=== PATIENT | male | born 1960 | race Caucasian/White ===

== ENCOUNTER 2021-09-09 08:54 | Inpatient (IN) | payer BC ==
[~2021-09-09] VITALS: Ht 180.3 cm; Wt 128.6 kg
[2021-09-09] MEDS ORDERED: POLY17PO6 PO (11:35)
[2021-09-09] MEDS ORDERED: ATOR10TA66 PO (11:35)
[2021-09-09] MEDS ORDERED: LIRA0.6P3 SQ (11:35)
[2021-09-09] MEDS ORDERED: AMLO-251 PO (11:35)
[2021-09-09] MEDS ORDERED: NF-SODBICA PO (11:35)
[2021-09-09] MEDS ORDERED: FERR325T18 PO (11:35)
[2021-09-09] MEDS ORDERED: CLOP75TA28 PO (11:35)
[2021-09-09] MEDS ORDERED: ASPI-1238 PO (11:35)
[2021-09-09] MEDS ORDERED: SENN-109 PO (11:35)
[2021-09-09] MEDS ORDERED: FURO40TA4 PO (11:35)
[2021-09-09] MEDS ORDERED: OLAN10TA71 PO (11:35)
[2021-09-09] MEDS ORDERED: HYDR-3817 PO (11:35)
[2021-09-09] MEDS ORDERED: LOPERAMIDE 2 MG (IMODIUM) TABLET PO PRN (12:15)
[2021-09-09] MEDS ORDERED: FUROSEMIDE 40 MG (LASIX) TAB PO PRN (12:15)
[2021-09-09] MEDS ORDERED: polyethylene glycoL POWDER 17 GM (MIRALAX) PACK PO PRN (12:15)
[2021-09-09] MEDS ORDERED: LACTULOSE SYRUP 10GM/15ML (ENULOSE) 30ML UDC PO PRN (12:15)
[2021-09-09] MEDS ORDERED: NON-FORMULARY MEDICATION 1 EA EA (Olanzapine 10 MG) PO PRN (12:15)
[2021-09-09] MEDS ORDERED: ACETAMINOPHEN 500 MG TAB (TYLENOL) PO PRN (12:15)
[2021-09-09] MEDS ORDERED: guaiFENesin/CODEINE (ROBITUSSIN AC) 10ML UDC PO PRN (12:15)
[2021-09-09] MEDS ORDERED: FLEET ENEMA ADULT 1 EA BTL PR PRN (12:15)
[2021-09-09] MEDS ORDERED: CALCIUM CARBONATE 500 MG (TUMS) TAB.CHEW PO PRN (12:15)
[2021-09-09] MEDS ORDERED: DOCUSATE SODIUM 100 MG (COLACE) CAP PO PRN (12:15)
[2021-09-09] MEDS ORDERED: diphenhydrAMINE 25 MG TAB (BENADRYL) PO PRN (12:15)
[2021-09-09] MEDS ORDERED: ONDANSETRON 4 MG (ZOFRAN) ORAL DISSOLVE TAB PO PRN (12:15)
[2021-09-09] MEDS ORDERED: BISACODYL 10 MG SUPP (DULCOLAX) PR PRN (12:15)
[2021-09-09 13:30] VITALS: BP 182/82
--- NOTE | 2021-09-09 14:22 | Physical Therapy Evaluation ---
PT Evaluation-General Medical Diagnosis Admission Date Sep 09, 2021 at 13:30 Medical Diagnosis: right AKA Onset Date: Aug 27, 2021 Therapy Diagnosis Therapy Diagnosis: impaired mobility, strength, endurance Precautions Precautions/Isolations: Fall Prevention, Standard Precautions, Contact/Enteric Isolation, Pressure Ulcer Referral Physician: Amarilys Carlson DO Reason for Referral: Evaluation/Treatment Social History Current Living Status: Spouse Entry Into Home: Ramp Prior Prior Level of Function SCALE: Activities may be completed with or without assistive devices. 8-Mtcvsqoonm-owarpbw completes the activity by him/herself with no assistance from a helper. 5-Set-up or Clean-up Assistance-helper sets up or cleans up; patient completes activity. [place] assists only prior to or following the activity. 4-Supervision or Touching Assistance-helper provides verbal cues and/or touching/steadying and/or contact guard assistance as patient completes activity . Assistance may be provided throughout the activity or intermittently. 3-Partial/Moderate Assistance-helper does LESS THAN HALF the effort. [place] lifts, holds or supports trunk or limbs, but provides less than half the effort. 2-Substantial/Maximal Assistance-helper does MORE THAN HALF the effort. [place] lifts or holds trunk or limbs and provides more than half the effort. 0-Yzzgznlrw-ribqpr does ALL the effort. Patient does none of the effort to complete the activity. Or, the assistance of 2 or more helpers is required for the patient to complete the activity. If activity was not attempted, code reason: 7-Patient Refused. 9-Not Applicable-not attempted and the patient did not perform the activity before the current illness, exacerbation or injury. 10-Not Attempted due to Environmental Limitations-(lack of equipment, weather restraints, etc.). 88-Not Attempted due to Medical Conditions or Safety Concerns. Bed Mobility: 6 Transfers (B,C,W/C): 3 Gait: 3 Indoor Mobility (Ambulation): Needed Some Help Prior Devices Use: Walker PT Evaluation-Current Subjective Patient in bed pre tx, agrees to PT, has no pain at rest but does have some pain in his right residual limb with movement. Will be co-treating with OT due to poor patient mobility, strength, endurance, coordinate UE and LE with activity, safety and reduce risk of falls. Pt/Family Goals to be independent at home Objective Patient Orientation: Person, Place, Situation Sensory Vision: Functional Hearing: Functional Transfers Roll Left & Right (QC): 6 Sit to Lying (QC): 3 Lying to Sitting/Side of Bed(Q: 3 Sit to Stand (QC): 88 Chair/Ywz-ha-Lqlvv Xfer(QC): 3 Toilet Transfer (QC): 3 Car Transfer (QC): 88 Patient performs rolling with independence, supine <-> sit min assist, transfers with mod assist using a sliding board. Not safe to perform a car transfer at this time. Gait Walk 10 feet (QC): 88 Walk 50 ft with 2 Turns(QC): 88 Walk 150 ft (QC): 88 Walking 10ft/uneven surface-QC: 88 Wheelchair Training Wheel 50 ft with 2 turns (QC): 4 Wheel 150 ft (QC): 4 Type of Wheelchair: Manual SBA Stairs 1 Step (curb) (QC): 88 4 Steps (QC): 88 12 Steps (QC): 88 Balance Sitting Static: Fair Sitting Dynamic: Fair Standing Static: Fair Standing Dynamic: Fair Picking up an Object (QC): 6 (using belt worker) Special Test Comments Patient has impaired sitting balance and he did lose his balance backward while sitting on the side of the bed, he was able to catch himself using the bedrail. Treatment PT performed bed mobility and transfers, WC mobility, OT performed UE positioning and safety during activity Assessment/Needs Patient has impaired mobility, strength, endurance. Needs assist for supine <-> sit and with sliding board transfers. He does have a prosthetic leg for the left side but his says it is porcelain or something and is only supposed to be used for transfers. Rehab Potential: Fair PT Short Term Goals Short Term Goals Time Frame: Sep 16, 2021 Roll Left & Right: 6 Sit to lyin Lying to sitting on side of be: 4 Sit to stand: 3 Chair/kft-zn-yqduj transfer: 4 PT Evs Attendant Goals Usp Goals PT Evs Attendant Goals Time Frame: Sep 30, 2021 Roll Left & Right (QC): 6 Sit to Lying (QC): 6 Lying-Sitting on Side/Bed(QC): 6 Sit to Stand (QC): 4 (SBA) Chair/Uqt-cb-Aamxb Xfer(QC): 4 (SBA) Toilet Transfer (QC): 4 (SBA) Car Transfer (QC): 3 (Jennifer) Does the Patient Walk: No and Walking Goal NOT indicated Walk 10 feet (QC): 88 Walk 50ft with 2 Turns (QC): 88 Walk 150 ft (QC): 88 Walking 10ft on Uneven Surface: 88 1 Step (curb) (QC): 88 4 Steps (QC): 88 12 Steps (QC): 88 Picking up an Object (QC): 6 Wheel 50 feet with 2 turns (QC: 6 Wheel 150 feet: 6 PT Plan Problem List Problem List: Activity Tolerance, Functional Strength, Safety, Balance, Gait, Transfer, Bed Mobility, ROM Treatment/Plan Treatment Plan: Continue Plan of Care Treatment Plan: Bed Mobility, Education, Functional Activity Julisa, Functional Strength, Group Therapy, Gait, Safety, Therapeutic Exercise, Transfers Treatment Duration: Sep 30, 2021 Frequency: At least 5 of 7 days/Wk (IRF) Estimated Hrs Per Day: 1.5 hours per day Patient and/or Family Agrees t: Yes Safety Risks/Education Patient Education: Transfer Techniques, Correct Positioning, W/C Management, Safety Issues Teaching Recipient: Patient Teaching Methods: Demonstration, Discussion Response to Teaching: Reinforcement Needed Discharge Recommendations Plan Patient will perform bed mobility and transfer training, balance and endurance training, functional strengthening, and education, to improve functional mobility and independence at home. Therapy Discharge Recommendati: Scheduled Assistance, Home & Family, Post Acute PT Time/GCodes Time In: 1330 Time Out: 1400 Total Billed Treatment Time: 20 Total Billed Treatment 1 visit EVM 10' PT eval from [id number], OT eval from 7726-6286, co-treat from [id number] NEFTALY MITCHELL PT Sep 09, 2021 14:22
[2021-09-09] MEDS ORDERED: ACETAMINOPHEN 325 MG TABLET PO PRN (15:15)
[2021-09-09] MEDS ORDERED: OLANZapine 5 MG (ZyPREXA) TAB PO PRN (15:15)
[2021-09-09] MEDS: SODIUM BICARBONATE 650 MG TABLET (NON-FORMULARY) PO SCH ×2 (15:16→21:06)
--- NOTE | 2021-09-09 15:17 | Occupational Therapy Eval ---
OT Evaluation-General/PLF Medical Diagnosis Admission Date Sep 09, 2021 at 13:30 Medical Diagnosis: s/p R AKA Onset Date: Aug 27, 2021 Therapy Diagnosis Therapy Diagnosis: decreased ADL status, weakness Precautions Precautions/Isolations: Fall Prevention, Standard Precautions, Contact/Enteric Isolation, Pressure Ulcer Weight Bear Status Weight Bearing Restriction: Weight Bearing/Tolerated (LLE with prosthesis), Non Weight Bearing (RLE) Referral Physician: Amarilys Carlson DO Referral Reason: Evaluation/Treatment Medical History Pertinent Medical History: DM, HTN, Renal Insufficiency (CKD4) Additional Medical History obesity, anemia, HLD, s/p BKA LLE, back surgery Current History s/p R AKA 08/27/21 due to osteomyelitis. Social History Home: Single Level Current Living Status: Spouse Entry Into Home: Ramp ADL-Prior Level of Function SCALE: Activities may be completed with or without assistive devices. 5-Shfxpdousq-wvkihzu completes the activity by him/herself with no assistance from a helper. 5-Set-up or Clean-up Assistance-helper sets up or cleans up; patient completes activity. [place] assists only prior to or following the activity. 4-Supervision or Touching Assistance-helper provides verbal cues and/or touc jennifer/steadying and/or contact guard assistance as patient completes activity. Assistance may be provided throughout the activity or intermittently. 3-Partial/Moderate Assistance-helper does LESS THAN HALF the effort. [place] lifts, holds or supports trunk or limbs, but provides less than half the effort. 2-Substantial/Maximal Assistance-helper does MORE THAN HALF the effort. [place] lifts or holds trunk or limbs and provides more than half the effort. 9-Yetklqpxy-xqnxkn does ALL the effort. Patient does none of the effort to complete the activity. Or, the assistance of 2 or more helpers is required for the patient to complete the activity. If activity was not attempted, code reason: 7-Patient Refused. 9-Not Applicable-not attempted and the patient did not perform the activity before the current illness, exacerbation or injury. 10-Not Attempted due to Environmental Limitations-(lack of equipment, weather restraints, etc.). 88-Not Attempted due to Medical Conditions or Safety Concerns. ADL PLOF Comments Pt reports IND with ADLs and functional transfers at PLOF. He states he is able to bathe/dress/toilet independently. He is able to use LLE prosthesis to assist in transfers. Pt's states his current prosthesis is ceramic, so he isn't supposed to take steps with it, but he can use for transfers. Pt uses electric w/c at home, able to transfer in/out independently. He also has a manual w/c. Pt limited to certain rooms in his home, as his w/c will not fit into bedroom/bathroom. He typically sleeps in recliner. He has a tub/shower, owns bath bench. In order to get into the shower, he has to transfer from w/c to bench, scoot across, transfer to a toilet or SC (pt unclear), then move the bench from one side to the other in order to transfer to bench again, scoot across, then transfer to SC within tub? (again pt unclear on exact layout of this transfer). He owns a BSC. Self Care: Independent Functional Cognition: Independent DME/Equipment: Bath Bench, Bedside Commode, Tub/Shower OT Current Status Subjective Pt agreeable to OT evaluation then OT/PT cotreat. Pt reports no pain throughout session Mental Status/Objective Patient Orientation: Person, Place, Time, Situation Current Glasses/Contacts: Yes (reading) Hearing Aids: No Dentures/Partials: No Hand Dominance: Right Upper Extremity ROM BUE shoulder flexion to approx 100 degrees, WFL at elbow/wrist/hand. Upper Extremity Coordination WFL Upper Extremity Sensation WFL Upper Extremity Strength grossly 4/5 ADL-Treatment Eating (QC): 6 (Pt independent with meal) Oral Hygiene (QC): 7 Shower/Bathe Self (QC): 7 Upper Body Dressing (QC): 7 Lower Body Dressing (QC): 7 On/Off Footwear (QC): 88 Toileting Hygiene (QC): 7 Other Treatments OT evaluation complete. OT/PT cotreat due to skill of 2 clincians required which a director of rehabilitation could not perform in order to coordinate UE/LEs, decrease fall risk, and due to pt's limitations in strength, activity tolerance, mobility, transfers, and balance. OT focused on UE placement, cues for sequencing and safety, and ADLs, PT focused on LE placement, gross overall movements, transfers/mobility. Pt transferred supine to sit EOB (Min A), then SB transfer to w/c (Mod A). Pt had LOB, falling backwards into the bed as SB was placed. Pt performed w/c mobility around TXU common area/2nd floor, then into therapy gym. Pt performed SB transfer from w/c to therapy mat (CGA). Tx focused on dynamic sitting balance, UE reaching, and crossing midline. Pt able to reach for rings in various planes, on same side and crossing midline for each UE. Pt then completed balloon batting activity, reaching in various planes with UEs. SBA for balance at EOM. Pt performed SB transfer from mat to w/c (CGA), then propelled w/c to his room. Pt requests to stay up in chair. Pt's meal arrived, he was able to eat independently. Post tx, pt up in w/c, call light in reach and all needs met. Education OT Patient Education: Correct positioning, Energy conservation, Modified ADL techniques, Progress toward Goal/Update tx plan, Purpose of tx/functional activities, Reviewed precautions, Rehab process, Safety issues, Transfer techniques Teaching Recipient: Patient Teaching Methods: Discussion Response to Teaching: Verbalize Understanding OT Short Term Goals Short Term Goals Time Frame: Sep 23, 2021 Toileting hygiene: 3 Shower/bathe self: 3 Lower body dressin Putting on/taking off footwear: 3 OT Fpc Goals Fpc Goals Time Frame: Oct 09, 2021 Eating (QC): 6 Oral Hygiene (QC): 6 Toileting Hygiene (QC): 4 Shower/Bathe Self (QC): 4 Upper Body Dressing (QC): 6 Lower Body Dressing (QC): 4 On/Off Footwear (QC): 5 (LLE prosthesis only) Additional Goals: 1-Demonstrate ADL Tasks, 2-Verbalize Understanding, 3- ImproveStrength/Julisa 1=Demonstrate adherence to instructed precautions during ADL tasks. 2=Patient will verbalize/demonstrate understanding of assistive devices/modifica tions for ADL. 3=Patient will improve strength/tolerance for activity to enable patient to perform ADL's. OT Education/Plan Problem List/Assessment Assessment: Decreased Activ Tolerance, Decreased UE Strength, Impaired Bed Mobility, Impaired Funct Balance, Impaired I ADL's, Impaired Self-Care Skills Discharge Recommendations Plan/Recommendations: Continue POC Treatment Plan/Plan of Care Patient would benefit from OT for education, treatment and training to promote independence in ADL's, mobility, safety and/or upper extremity function for ADL's. Plan of Care: ADL Retraining, Functional Mobility, Group Exercise/Act as Ind, UE Funct Exercise/Act Treatment Duration: Oct 09, 2021 Frequency: At least 5 of 7 days/Wk (IRF) Estimated Hrs Per Day: 1.5 hours per day Rehab Potential: Fair Time/GCodes Start Time: 13:40 Stop Time: 15:10 Total Time Billed (hr/min): 90 Billed Treatment Time 8530-0727 OT eval (10'), 3465-1266 OT/PT cotreat (80') 1, EVM (10'), FA 5 (80') LETICIA HENDRIX OT Sep 09, 2021 15:17
--- NOTE | 2021-09-09 15:26 | Physical Therapy Daily Note ---
PT Daily Note-Current Subjective Pt sitting in [facility] working w/Ot upon arrival. Pt agrees to PT/OT co-treat. Pain Numeric Pain Scale: 0-No Pain Mental Status Patient Orientation: Person, Place, Time, Situation Attachments: Other-See Comments (Slide Board) Transfers SCALE: Activities may be completed with or without assistive devices. 4-Bvvaxpepcp-pwnprjd completes the activity by him/herself with no assistance from a helper. 5-Set-up or Clean-up Assistance-helper sets up or cleans up; patient completes activity. [place] assists only prior to or following the activity. 4-Supervision or Touching Assistance-helper provides verbal cues and/or touching/steadying and/or contact guard assistance as patient completes ac tivity. Assistance may be provided throughout the activity or intermittently. 3-Partial/Moderate Assistance-helper does LESS THAN HALF the effort. [place] lifts, holds or supports trunk or limbs, but provides less than half the effort. 2-Substantial/Maximal Assistance-helper does MORE THAN HALF the effort. [place] lifts or holds trunk or limbs and provides more than half the effort. 7-Isufgeuyk-qcuzku does ALL the effort. Patient does none of the effort to complete the activity. Or, the assistance of 2 or more helpers is required for the patient to complete the activity. If activity was not attempted, code reason: 7-Patient Refused. 9-Not Applicable-not attempted and the patient did not perform the activity before the current illness, exacerbation or injury. 10-Not Attempted due to Environmental Limitations-(lack of equipment, weather restraints, etc.). 88-Not Attempted due to Medical Conditions or Safety Concerns. Chair/Tdi-zh-Ydoax Xfer(QC): 4 Wheelchair Training Does the Pt Use a Wheelchair?: Yes Wheel 50 ft with 2 turns (QC): 4 Wheel 150 ft (QC): 4 Type of Wheelchair: Manual Treatments OT/PT cotreat due to skill of 2 clincians required which a pc technician could not perform in order to coordinate UE/LEs, decrease fall risk, and due to pt's limitations in strength, activity tolerance, mobility, transfers, and balance. OT focused on UE placement, cues for sequencing and safety, and ADLs, PT focused on LE placement, gross overall movements, transfers/mobility. Pt working with OT for MMT. Pt propels [facility] in hallway takeing RB as needed for fatigue. Pt propels [facility] in hallway again and returns to Therapy Gym. Pt TF to EOM using slide board. Pt works on slide board transfers as well as balance activity for DON practice. Pt returns to [facility] and propels back to room. Pt wants to sit up for a while so no other transfer. FIBROUS WALLBOARD INSPECTOR & OT give pt educ. to pt & Sp about ARU Expectations, visitor requirements and how to order food and work lighting in room. Pt felt comfortable and had all needs met, call light w/in reach. Assessment Current Status: Fair Progress Pt improves as tx continues. Pt had previously used a slide board but had discontinued until recent amputation. Pt's transfers improve with more practice. Pt has pretty good dynamic sitting balance. PT Short Term Goals Short Term Goals Time Frame: Sep 16, 2021 Roll Left & Right: 6 Sit to lyin Lying to sitting on side of be: 4 Sit to stand: 3 Chair/ytj-bu-lfxle transfer: 4 PT Air Dispatcher Goals Alf Goals PT Air Dispatcher Goals Time Frame: Sep 30, 2021 Roll Left & Right (QC): 6 Sit to Lying (QC): 6 Lying-Sitting on Side/Bed(QC): 6 Sit to Stand (QC): 4 Chair/Mlf-so-Hfydx Xfer(QC): 4 Toilet Transfer (QC): 4 Car Transfer (QC): 3 Does the Patient Walk: No and Walking Goal NOT indicated Walk 10 feet (QC): 88 Walk 50ft with 2 Turns (QC): 88 Walk 150 ft (QC): 88 Walking 10ft on Uneven Surface: 88 1 Step (curb) (QC): 88 4 Steps (QC): 88 12 Steps (QC): 88 Picking up an Object (QC): 6 Wheel 50 feet with 2 turns (QC: 6 Wheel 150 feet: 6 PT Plan Problem List Problem List: Activity Tolerance, Balance, Transfer, Bed Mobility Treatment/Plan Treatment Plan: Continue Plan of Care Treatment Plan: Bed Mobility, Education, Functional Activity Julisa, Functional Strength, Group Therapy, Gait, Safety, Therapeutic Exercise, Transfers Treatment Duration: Sep 30, 2021 Frequency: At least 5 of 7 days/Wk (IRF) Estimated Hrs Per Day: 1.5 hours per day Patient and/or Family Agrees t: Yes Safety Risks/Education Patient Education: Transfer Techniques, Correct Positioning Teaching Recipient: Patient, Significant Other Teaching Methods: Demonstration, Discussion Response to Teaching: Verbalize Understanding, Return Demonstration Time/GCodes Time In: 1400 Time Out: 1510 Total Billed Treatment Time: 70 Total Billed Treatment 1, [facility] x2 (30m) & FA x3 (40m) TREE MEDELLIN FIBROUS WALLBOARD INSPECTOR Sep 09, 2021 15:26
--- NOTE | 2021-09-09 15:31 | Progress Note ---
GERALDINE CANCINO MED STUDENT 09/09/21 1531: Progress Note H&P CC: Debility s/p R AKA 08/27/21 HPI: Flash is admitted to IRF from [facility] for PT/OT rehab s/p R AKA d/t osteomyelitis. Maya is at bedside and helps provide history. States 7/ pain to lateral aspect of remnant RLE, denies current need for medication. Significant hx of T2DM, HTN, HLD, CKD, anemia, L BKA. States he had some bad experiences post-op with episodes of agitation and hallucinations they attribute to Ativan. States that he normally took Tresiba 60U QD for his DM, but it was stopped at [facility] because his sugars have been normal. He has not had an appetite for the past couple weeks. No questions/concerns. ROS: denies fevers/chills, chest pain, SOB, N/V, diarrhea/constipation, dysuria, hematuria, numbness/tingling, lightheadedness/dizziness. PMHx: T2DM, HTN, HLD, CKD, Anemia, Obesity, PSHx: R AKA 08/27/21, L BKA 03/20, back surgery 30yrs ago, cholecystectomy Meds: * Amlodipine 10mg QD * Zyprexa 10mg TID PRN hallucinations * Miralax 17g QD PRN constipation * Senna-S 1ea BID * Sodium Bicarbonate 650mg TID * Aspirin 81mg QD * Atorvastatin 10mg QD * Clopidogrel 75mg QD * Ferrous Sulfate 325mg QD * Furosemide 40mg BID PRN Allergies: NKDA, no food/environmental allergies FHx: Father(DM, HTN). 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 strength +5/5 BUE. RLE incision/skin flap secured with haile, mild erythema at staple sites, no drainage, no s/s infection. mildly tender to palpation on R lateral baseball sized lump Skin: no rashes/lesions, large incision to RLE stump with mild edema/erythema, no drainage Psych: responds appropriate, pleasant affect A/P: Debility s/p R AKA 08/27/21 PT/OT eval and rehab Encourage PO intake Bowel regimen prn Monitor VS, labs, pain Hallucinations; onset most recent hospital stay Zyprexa prn T2DM Pt reports stopping insulin regimen HTN HLD Restart home meds AMARILYS BENZ DO 09/10/21 0556: Supervisory-Addendum Brief Verification & Attestation Participated in pt care: history, MDM, physical Personally performed: exam, history, MDM, supervision of care Care discussed with: Medical Student Procedures: n/a Results interpretation: Verified all documentation Verification and Attestation of Medical Student E/M Service A medical student performed and documented this service in my presence. I reviewed and verified all information documented by the medical student and made modifications to such information, when appropriate. I personally performed the physical exam and medical decision making. Amarilys Benz, Sep 10, 2021,05:56 GERALDINE CANCINO MED STUDENT Sep 09, 2021 15:31 AMARILYS BENZ DO Sep 10, 2021 05:56
[2021-09-09] MEDS: inSUlin ASPART (NovoLOG) 1 UNIT/0.01 ML (CHARGE PER UNIT) SC SCH ×2 (16:16→20:32)
--- NOTE | 2021-09-09 16:38 | PM&R Post Admission Assessment ---
PM&R HP Date of Visit: Sep 09, 2021 Time of Visit: 16:40 History of Present Illness CC: Debility following right AKA HPI: This is a 61yo white male with a PMH of DM and a prior left BKA remotely who presents to inpatient rehab from [facility] following a right above knee amputation. He did have encephalopathy issues requiring antipsychotics but that has resolved. We will work on helping him recover which will be a challenge considering his BMI is excessive at 45. The left BKA he had was from previous and currently he will require aggressive therapy in order to return back to independent living. He is retired. 31 years. Smokes but has quit since hospitalization. CC: Debility s/p R AKA 08/27/21 HPI: Flash is admitted to IRF from [facility] for PT/OT rehab s/p R AKA d/t osteomyelitis. Maya is at bedside and helps provide history. States 7/10 pain to lateral aspect of remnant RLE, denies current need for medication. Significant hx of T2DM, HTN, HLD, CKD, anemia, L BKA. States he had some bad experiences post-op with episodes of agitation and hallucinations they attribute to Ativan. States that he normally took Tresiba 60U QD for his DM, but it was stopped at [facility] because his sugars have been normal. He has not had an appetite for the past couple weeks. No questions/concerns. ROS: denies fevers/chills, chest pain, SOB, N/V, diarrhea/constipation, dysuria, hematuria, numbness/tingling, lightheadedness/dizziness. PMHx: T2DM, HTN, HLD, CKD, Anemia, Obesity, PSHx: R AKA 08/27/21, L BKA 03/20, back surgery 30yrs ago, cholecystectomy Meds: * Amlodipine 10mg QD * Zyprexa 10mg TID PRN hallucinations * Miralax 17g QD PRN constipation * Senna-S 1ea BID * Sodium Bicarbonate 650mg TID * Aspirin 81mg QD * Atorvastatin 10mg QD * Clopidogrel 75mg QD * Ferrous Sulfate 325mg QD * Furosemide 40mg BID PRN Allergies: NKDA, no food/environmental allergies FHx: Father(DM, HTN). 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 strength +5/5 BUE. RLE incision/skin flap secured with haile, mild erythema at staple sites, no drainage, no s/s infection. mildly tender to palpation on R lateral baseball sized lump Skin: no rashes/lesions, large incision to RLE stump with mild edema/erythema, no drainage Psych: responds appropriate, pleasant affect A/P: Debility s/p R AKA 08/27/21 PT/OT eval and rehab Encourage PO intake Bowel regimen prn Monitor VS, labs, pain Hallucinations; onset most recent hospital stay Zyprexa prn T2DM Pt reports stopping insulin regimen HTN HLD Restart home meds GERALDINE CANCINO MED STUDENT Sep 09, 2021 15:31 Past Jaifjqc-Jtmzyv-Yyluid Hx Past Med/Social Hx: Reviewed Nursing Past Med/Soc Hx, Reviewed and Corrections made Patient Social History Marrital Status: Employed/Student: retired Alcohol Use: Denies Use Smoking Status: Former Smoker Past Medical History Surgeries: Orthopedic Cardiac: High Cholesterol, Hypertension Neurological: Neuropathy Genitourinary: Bladder Infection, Renal Failure Gastrointestinal: Gastroesophageal Reflux Musculoskeletal: Arthritis, Chronic Back Pain Endocrine: Diabetes, Insulin dep Psychosocial: Anxiety, Depression Prior Level of Function Bed Mobility: 6 Transfers: 3 Gait: 3 Indoor Mobility (Ambulation): Needed Some Help Prior Devices Use: Walker Self Care: Independent Functional Cognition: Independent Current Level of Fuctioning Roll Left to Right: 6 Sit to Lyin Lying to Sitting/Side of Bed: 3 Sit to Stand: 88 Chair/Ejq-iq-Gbnub Xfer: 4 Car Transfer: 88 Walk 10 feet: 88 Walk 50 ft with 2 Turns: 88 Walk 150 ft: 88 Walking 10ft on uneven surface: 88 Does the Pt Use a Wheelchair: Yes Wheel 50 ft with 2 turns: 4 Wheel 150 ft: 4 Type of Wheelchair: Manual 1 Step (curb): 88 4 Steps: 88 12 Steps: 88 Picking up an Object: 6 Eatin (Pt independent with meal) Oral Hygiene: 7 Shower/Bathe Self: 7 Upper Body Dressin Lower Body Dressin On/Off Footwear: 88 Toileting Hygiene: 7 PM&R Allergy/Meds/Data Review Allergies Coded Allergies: canagliflozin (Verified Allergy, Mild, Diarrhea, 09/09/21) dapagliflozin (Verified Allergy, Mild, Diarrhea, 09/09/21) diphenhydramine (Verified Allergy, Mild, Itching, 09/09/21) dulaglutide (Verified Allergy, Mild, Diarrhea, 09/09/21) hydrochlorothiazide (Verified Allergy, Mild, Diarrhea, 09/09/21) liraglutide (Verified Allergy, Mild, Diarrhea, 09/09/21) lisinopril (Verified Allergy, Mild, 09/09/21) cough metformin (Verified Allergy, Mild, Diarrhea, 09/09/21) Home Medications Scheduled Amlodipine Besylate (Amlodipine Besylate), 10 MG PO DAILY, (Reported) Aspirin (Aspirin EC), 81 MG PO DAILY, (Reported) Atorvastatin Calcium (Atorvastatin Calcium), 10 MG PO DAILY, (Reported) Clopidogrel Bisulfate (Clopidogrel), 75 MG PO DAILY, (Reported) Ferrous Sulfate (Ferrous Sulfate), 325 MG PO DAILY, (Reported) Liraglutide (Victoza 3-Simon), 0.6 MG SQ DAILY, (Reported) Sennosides/Docusate Sodium (Senna-S Tablet), 1 EACH PO BID, (Reported) Sodium Bicarbonate (Sodium Bicarbonate), 650 MG PO TID, (Reported) Scheduled PRN Furosemide (Furosemide), 40 MG PO DAILY PRN for WEIGHT GAIN >3LB PER DAY, (Reported) Hydrocodone/Acetaminophen (Hydrocodone-Acetamin 7.5-325), 1 EACH PO Q6H PRN for PAIN-MODERATE (5-7), (Reported) Olanzapine (Olanzapine), 10 MG PO TID PRN for HALLUCINATIONS, (Reported) Polyethylene Glycol 3350 (Miralax), 17 GM PO DAILY PRN for CONSTIPATION-2ND LINE, (Reported) Current Medications Current Medications Reviewed Laboratory Data Laboratory Tests 09/09/21 16:16: Glucometer 116H Review of Systems Constitutional: see HPI, malaise, weakness EENTM: no symptoms reported Respiratory: no symptoms reported Cardiovascular: no symptoms reported Gastrointestinal: no symptoms reported Genitourinary: no symptoms reported Musculoskeletal: back pain, joint pain, muscle pain, muscle stiffness, muscle cramps Skin: no symptoms reported Psychiatric/Neurological: Anxiety, Depressed All Other Systems Reviewed Negative Unless Noted: Yes Physical Exam Physical Exam Vital Signs Vital Signs - First Documented 09/09/21 13:30 Temp 37.0 Pulse 71 Resp 20 B/P (MAP) 182/82 (115) Pulse Ox 95 O2 Delivery Room Air Capillary Refill : Height, Weight, BMI Height: '" Weight: lbs. oz. kg; 36.60 BMI Method: General Appearance: No Apparent Distress, WD/WN, Chronically ill, Obese Eyes: Bilateral Eye Normal Inspection, Bilateral Eye PERRL HEENT: PERRL/EOMI, Normal ENT Inspection, Pharynx Normal Neck: Full Range of Motion, Normal Inspection, Non Tender, Supple, Carotid Bruit Respiratory: Chest Non Tender, Lungs Clear, Normal Breath Sounds, No Accessory Muscle Use, No Respiratory Distress Cardiovascular: Regular Rate, Rhythm, No Edema, No Gallop, No JVD, No Murmur, Normal Peripheral Pulses Gastrointestinal: Normal Bowel Sounds, No Organomegaly, No Pulsatile Mass, Non Tender, Soft Back: Normal Inspection, No CVA Tenderness, No Vertebral Tenderness Extremity: Normal Capillary Refill, Normal Inspection, Normal Range of Motion, Non Tender, No Calf Tenderness, Other (right AKA haile in place, left BKA) Neurologic/Psychiatric: Alert, Oriented x3, No Motor/Sensory Deficits, Normal Mood/Affect Skin: Normal Color, Warm/Dry Lymphatic: No Adenopathy PM&R Medical Assessment & Plan REHAB/MEDICAL ASSESSMENT AND PLAN: REHAB IMPAIRMENT GROUP: Right AKA ETIOLOGIC DIAGNOSIS: Right AKA The comorbidities that impact the patients function and/or functional outcome by: morbid obesity, DM, smoker, previous left BKA REHAB PLAN: The patient is being admitted to our comprehensive inpatient rehabilitation facility and can tolerate the intensity of service consisting of at least: 180 minutes of therapy a day, 5 out of 7 days a week Rehab treatment will consist of: PT OT will focus on regaining function with use of left prosthesis along with other assistive devices in order to regain enough function to return home with The patient/family has a good understanding of our discharge process and will benefit from an interdisciplinary inpatient rehabilitation program. The patient has potential to make improvement and is in need of at least two of the following multidisciplinary therapies including but not limited to physical, occupational, speech, and prosthetics and orthotics. Additionally the patient will need services from respiratory, nutritional services, wound care, psychology, etc. (Customize this to each patient). Given the patients complex condition and risk of further medical complications, rehabilitation services cannot be safely or effectively provided at a lower level of care such as a jail facility. BARRIERS TO DISCHARGE: prior left BKA ESTIMATED LOS: 14 days DISPOSITION: Home RELEVANT CHANGES SINCE PREADMISSION SCREENING: I have compared the patients medical and functional status at the time of the preadmission screening and there are: no changes PROGNOSIS: Good REHABILITATION GOALS: 1. PT OT will focus on regaining function with use of left prosthesis along with other assistive devices in order to regain enough function to return home with All the above goals were reviewed with the patient and he/she is in agreement. By signing this document, I acknowledge that I have personally performed a full physical examination on this patient within 24 hours of admission to this inpatient rehabilitation facility and have determined the patient to be able to tolerate the above course of treatment at an intensive level for a reasonable period of time. I will be completing a detailed individualized Plan of Care for this patient by day #4 of the patients stay based upon the Preadmission Screen, the Post-Admission Evaluation, and the therapy evaluations. Admission Dx/Comorbidities: (1) S/P AKA (above knee amputation) ICD Codes: Z89.619 - Acquired absence of unspecified leg above knee (2) Diabetes ICD Codes: E11.9 - Type 2 diabetes mellitus without complications (3) History of left below knee amputation ICD Codes: Z89.512 - Acquired absence of left leg below knee (4) Psychosis ICD Codes: F29 - Unspecified psychosis not due to a substance or known physiological condition (5) CKD (chronic kidney disease) ICD Codes: N18.9 - Chronic kidney disease, unspecified Assessment/Plan Assessment and Plan Assess & Plan/Chief Complaint Assessment: s/p right AKA due to osteomyelitis Remote hx of left BKA DM HTN HLP Recent psychosis CKD Smoker Obesity Plan: Monitor closely DM management Pain control IRF protocol AFTAB BENZ DO Sep 09, 2021 16:38
[2021-09-09] MEDS ORDERED: cloNIDine 0.1 MG (CATAPRES) TAB PO PRN (16:45)
[2021-09-09 19:55] VITALS: BP 144/67
[2021-09-09] MEDS ORDERED: SENNA W/DOCUSATE (SENOKOT S) TABLET PO SCH (21:00)
[2021-09-09] MEDS: SENNA W/DOCUSATE (SENOKOT S) TABLET PO SCH (21:06)
[2021-09-09] MEDS: DOCUSATE SODIUM 100 MG (COLACE) CAP PO SCH (21:06)
[2021-09-09] MEDS: polyethylene glycoL POWDER 17 GM (MIRALAX) PACK PO SCH (21:06)
[2021-09-10] MEDS: inSUlin ASPART (NovoLOG) 1 UNIT/0.01 ML (CHARGE PER UNIT) SC SCH ×4 (05:24→20:39)
[2021-09-10 05:59] LABS: BASOPHILS % (AUTO) 1 % (0-10); EOSINOPHILS # (AUTO) 0.2 10^3/uL (0.0-0.3); EOSINOPHILS % (AUTO) 3 % (0-10); HEMATOCRIT 27 % (40-54); HEMOGLOBIN 8.3 g/dL (13.3-17.7); LYMPHOCYTES % (AUTO) 23 % (12-44); MEAN CORPUSCULAR HEMOGLOBIN 30 pg (25-34); MEAN CORPUSCULAR HGB CONC 31 g/dL (32-36); MEAN CORPUSCULAR VOLUME 96 fL (80-99); MEAN PLATELET VOLUME 11.9 fL (9.0-12.2); MONOCYTES # (AUTO) 0.9 10^3/uL (0.0-1.0); MONOCYTES % (AUTO) 11 % (0-12); NEUTROPHILS # (AUTO) 5.3 10^3/uL (1.8-7.8); NEUTROPHILS % (AUTO) 62 % (42-75); PLATELET COUNT 400 10^3/uL (130-400); WHITE BLOOD COUNT 8.6 10^3/uL (4.3-11.0)
[2021-09-10 06:02] LABS: ALBUMIN 2.5 GM/DL (3.2-4.5); CHLORIDE 108 MMOL/L (98-107); SODIUM 139 MMOL/L (135-145)
[2021-09-10 06:03] LABS: CALCIUM 9.5 MG/DL (8.5-10.1)
[2021-09-10 06:04] LABS: GLUCOSE 136 MG/DL (70-105)
[2021-09-10 06:06] LABS: BILIRUBIN,TOTAL 0.3 MG/DL (0.1-1.0); CARBON DIOXIDE 23 MMOL/L (21-32)
[2021-09-10 06:08] LABS: ALKALINE PHOSPHATASE 90 U/L (40-136); CREATININE SERUM 1.69 MG/DL (0.60-1.30); GFR ESTIMATED 42
[2021-09-10 06:09] LABS: BUN/CREATININE RATIO 14
[2021-09-10 06:11] LABS: ALANINE AMINOTRANSFERASE < 6 U/L (0-55)
[2021-09-10] MEDS: HYDROcodone/APAP 7.5 MG/325 MG (LORTAB, LORCET PLUS) TABLET PO PRN (06:30)
[2021-09-10 07:28] VITALS: BP 158/68
--- NOTE | 2021-09-10 08:42 | ST Cognitive Linguistic Eval ---
Speech Evaluation-General Medical Diagnosis right LUCÍA Onset Date: Aug 27, 2021 Therapy Diagnosis Therapy Diagnosis: Cognitive-communication Referral Referring Physician: Dr. Carlson Medical History Pertinent Medical History: DM, HTN, Renal Insufficiency (CKD4) Reviewed History: Yes Social History Current Living Status: Spouse Speech PLF-Current Status Prior Level of Function Patient lives at home with his who assists him with his daily needs. Subjective Patient was pleasant and cooperative with the cognitive assessment. Language Eval: Auditory Comprehends Simple Yes/No Ques: Functional Indent/Objects Multiple Mclaughlin: Functional Ident/Pics in Multiple Mclaughlin: Functional Follows 1-Step Commands: Functional Follows Complex Directions: Functional Follows General Conversations: Functional Language Eval: Verbal Language Completes Spontaneous Greeting: Functional Produces Auto, Serial Info: Functional Imitates Simple Words/Phrases: Functional Word Finding: Functional Requests Basic Needs: Functional States Basic Personal Info: Functional Expresses Complex Ideas: Functional Objective Cognitive Domain Attention: WNL Memory: WNL Problem Solving: Functional Executive Functions: WNL Visuospatial Skills: WNL Composite Severity Rating: WNL Clock Drawing Severity Rating: WNL Objective Formal/Standardized Tests [facility] Mental Status ([facility] [[email or web address] Results 28/30, within normal limits Oral Motor/Speech Production Within Normal Limits Impression Patient is a pleasant 61 y/o male who was admitted to the ARU due to recent amputations. Patient was given the UMS with a score of 28/30 obtained. This score is within the normal range of function and does not indicate the need for further ST services. Speech Patient Assess Expression of Ideas/Wants: Expression (4) Understanding Verbal Content: Understands (4) Brief Interview-Mental Status: Yes Repetition of Three Words: Three (3) Temporal Orientation: Year: Correct (3) Temporal Orientation: Month: Accurate within 5 days(2) Temporal Orientation: Day: Correct (1) Recall : Wear to say "Sock": Yes, no cue required (2) Recall : Color: Yes, no cue required (2) Recall : Bed: Yes,after cueing (1) Memory/Recall Ability: Current season, Location of own room, That he or she is in a hsp/hsp unit Speech-Plan Patient/Family Goals Patient/Family Goals: Patient will return home where he lives with his . Treatment Plan Speech Therapy Treatment Plan: Discontinue ST Treatment Duration: Sep 10, 2021 Frequency: 1 time per week Estimated Hrs Per Day: .5 hour per day Rehab Potential: Fair Barriers to Learning: No cognitive deficits noted Pt/Family Agrees to Plan: Yes Safety Risks/Education Teaching Recipient: Patient Teaching Methods: Discussion Response to Teaching: Verbalize Understanding, Unable to Return Demonstration Education Topics Provided: Safety within his room, communication of wants/needs Time Speech Therapy Time In: 08:30 Speech Therapy Time Out: 09:00 Total Billed Time: 30 Billed Treatment Time 1, [facility] [address] Sep 10, 2021 08:42
[2021-09-10] MEDS ORDERED: NON-FORMULARY MEDICATION 1 EA EA (Liraglutide (Victoza 3-Pak) 0.6 MG) SQ SCH (09:00)
[2021-09-10] MEDS: polyethylene glycoL POWDER 17 GM (MIRALAX) PACK PO SCH ×2 (10:16→20:39)
[2021-09-10] MEDS: DOCUSATE SODIUM 100 MG (COLACE) CAP PO SCH ×2 (10:16→20:39)
[2021-09-10] MEDS: SENNA W/DOCUSATE (SENOKOT S) TABLET PO SCH ×2 (10:16→20:39)
[2021-09-10] MEDS: FERROUS SULF 325 MG (IRON) TAB PO SCH (10:16)
[2021-09-10] MEDS: amLODIPine 10 MG (NORVASC) TAB PO SCH (10:16)
[2021-09-10] MEDS: CLOPIDOGREL 75 MG (PLAVIX) TABLET PO SCH (10:16)
[2021-09-10] MEDS: AtorvaSTATin TABLET 10 MG TABLET PO SCH (10:17)
[2021-09-10] MEDS: ASPIRIN E.C. 81 MG (ECOTRIN) TAB PO SCH (10:17)
[2021-09-10] MEDS: SODIUM BICARBONATE 650 MG TABLET (NON-FORMULARY) PO SCH ×3 (10:49→20:39)
--- NOTE | 2021-09-10 10:50 | Occupational Ther Daily Note ---
OT Current Status-Daily Note Subjective Pt sitting in w/c, alert. No c/o pain. Pt agrees to therapy. Pt stated that he did not feel well and was somewhat nauseous. Reported to nrsg, nrsg tech took vitals all WNL. After shower, pt stated he felt better. Mental Status/Objective Patient Orientation: Person, Place, Time, Situation ADL-Treatment Pt agrees to a shower. PT/OT co-treat with pt ([id number]). 2 clinicians required for skilled treatment to decrease fall risk, increase mobility and activity tolerance. PT focused on sliding board transfers and bed mobility. OT focused on sliding board transfers, B UE placement and ADL performance. Pt transfer w/c<- >shower bench using SB, grabbars for support Mod A for safety after assist for w/c and SB placement. W/c-> bed using SB Mod A for safety. With FOB elevated, pt able to pull self up in bed. After therapy, pt lying in bed with call light/phone in reach. Nrsg present in room. All needs met in room. Therapy Code Descriptions/Definitions Functional Wilton Measure: 0=Not Assessed/NA 4=Minimal Assistance 1=Total Assistance 5=Supervision or Setup 2=Maximal Assistance 6=Modified [place] 3=Moderate Assistance 7=Complete IndependenceSCALE: Activities may be completed with or without assistive devices. 1-Ytsrgedssq-cxhjtwg completes the activity by him/herself with no assistance from a helper. 5-Set-up or Clean-up Assistance-helper sets up or cleans up; patient completes activity. Garland assists only prior to or following the activity. 4-Supervision or Touching Assistance-helper provides verbal cues and/or touching/steadying and/or contact guard assistance as patient completes activity. Assistance may be provided throughout the activity or intermittently. 3-Partial/Moderate Assistance-helper does LESS THAN HALF the effort. Garland lifts, holds or supports trunk or limbs, but provides less than half the effort. 2-Substantial/Maximal Assistance-helper does MORE THAN HALF the effort. Garland lifts or holds trunk or limbs and provides more than half the effort. 8-Liaocisdv-veygnf does ALL the effort. Patient does none of the effort to complete the activity. Or, the assistance of 2 or more helpers is required for the patient to complete the activity. If activity was not attempted, code reason: 7-Patient Refused. 9-Not Applicable-not attempted and the patient did not perform the activity before the current illness, exacerbation or injury. 10-Not Attempted due to Environmental Limitations-(lack of equipment, weather restraints, etc.). 88-Not Attempted due to Medical Conditions or Safety Concerns. Oral Hygiene (QC): 6 (Per clinical judgment, pt able to complete independently in sitting.) Bathing Location: L Arm, R Arm, L Upper Leg, R Upper Leg, L Lower Leg (including foot) (BKA), R Lower Leg (including foot) (AKA), Chest, Abdomen, Buttocks, Perineal Area Shower/Bathe Self (QC): 4 (Sitting on shower shower bench, pt able to bathe self with SBA for safety after set up.) Upper Body Dressing (QC): 5 (pt able to complete with supplies gathered.) Lower Body Dressing (QC): 3 (In supine assist to thread B stumps into pants then pt able to hike over hips rolling side to side.) On/Off Footwear: 88 OT Short Term Goals Short Term Goals Time Frame: Sep 23, 2021 Toileting hygiene: 3 Shower/bathe self: 3 Lower body dressin Putting on/taking off footwear: 3 OT Production Painter Goals Fdc Goals Time Frame: Oct 09, 2021 Eating (QC): 6 Oral Hygiene (QC): 6 Toileting Hygiene (QC): 4 Shower/Bathe Self (QC): 4 Upper Body Dressing (QC): 6 Lower Body Dressing (QC): 4 On/Off Footwear (QC): 5 (LLE prosthesis only) Additional Goals: 1-Demonstrate ADL Tasks, 2-Verbalize Understanding, 3- ImproveStrength/Julisa 1=Demonstrate adherence to instructed precautions during ADL tasks. 2=Patient will verbalize/demonstrate understanding of assistive devices/modifications for ADL. 3=Patient will improve strength/tolerance for activity to enable patient to perform ADL's. OT Education/Plan Problem List/Assessment Assessment: Decreased Activ Tolerance, Dependent Transfers, Impaired Bed Mobility, Impaired Funct Balance, Impaired Self-Care Skills Discharge Recommendations Plan/Recommendations: Continue POC Treatment Plan/Plan of Care Patient would benefit from OT for education, treatment and training to promote independence in ADL's, mobility, safety and/or upper extremity function for ADL's. Plan of Care: ADL Retraining, Functional Mobility, Group Exercise/Act as Ind, UE Funct Exercise/Act Treatment Duration: Oct 09, 2021 Frequency: At least 5 of 7 days/Wk (IRF) Estimated Hrs Per Day: 1.5 hours per day Rehab Potential: Fair Time/GCodes Start Time: 09:45 Stop Time: 11:00 Total Time Billed (hr/min): 75 Billed Treatment Time 1 Visit- ADL 5 (75 min) [place] with PT [id number] individual [id number] RAMIN FAULKNER Sep 10, 2021 10:50
--- NOTE | 2021-09-10 10:53 | Physical Therapy Daily Note ---
PT Daily Note-Current Subjective Pt. agrees to PT OT co Rx secondary to complication of TRF skill to coordinate routines for shower safety and pts low activity tolerance. Pt. explains routines he has tried previous to this recent loss of limb etc. min pain c/o at distal right residual limb Pain Numeric Pain Scale: 4 Location: Right Location Body Site: Hip Pain Description: Pressure Mental Status Patient Orientation: Normal For Age Transfers SCALE: Activities may be completed with or without assistive devices. 7-Apphxxmogf-twrlldq completes the activity by him/herself with no assistance from a helper. 5-Set-up or Clean-up Assistance-helper sets up or cleans up; patient completes activity. Fielding assists only prior to or following the activity. 4-Supervision or Touching Assistance-helper provides verbal cues and/or touching/steadying and/or contact guard assistance as patient completes activity. Assistance may be provided throughout the activity or intermittently. 3-Partial/Moderate Assistance-helper does LESS THAN HALF the effort. Fielding lifts, holds or supports trunk or limbs, but provides less than half the effort. 2-Substantial/Maximal Assistance-helper does MORE THAN HALF the effort. Fielding lifts or holds trunk or limbs and provides more than half the effort. 7-Apngyyngp-lsjdnq does ALL the effort. Patient does none of the effort to complete the activity. Or, the assistance of 2 or more helpers is required for the patient to complete the activity. If activity was not attempted, code reason: 7-Patient Refused. 9-Not Applicable-not attempted and the patient did not perform the activity before the current illness, exacerbation or injury. 10-Not Attempted due to Environmental Limitations-(lack of equipment, weather restraints, etc.). 88-Not Attempted due to Medical Conditions or Safety Concerns. Roll Left & Right (QC): 6 Sit to Lying (QC): 4 Chair/Wpd-xj-Latwc Xfer(QC): 3 Rx consisted of w/c to shower wall bench TRF, back to w/c on damp surface, w/c to bed TRF all using slide brd with varying heights and troubleshooting safety and best practice technique for this patients limitations. Pt. gives full effort and has good awareness of his strength Wheelchair Training Does the Pt Use a Wheelchair?: Yes Type of Wheelchair: Manual Exercises Supine Ex: Rolling, Scooting pt. rolled and scooted up in bed from very low spot in bed after shower. pt. rolled and scooted to lore shorts.. Pt does fatigue and needs rest breaks. OT assisted pt. with shower and donning and doffing clothing with PT occas assist Treatments PT OT co Rx for w/c slide brd TRFs to shower and to bed requiring 2 skilled clinicians for problem solving safe TRF options etc. Assessment Current Status: Good Progress pt. shows good potential to progress well PT Short Term Goals Short Term Goals Time Frame: Sep 16, 2021 Roll Left & Right: 6 Sit to lyin Lying to sitting on side of be: 4 Sit to stand: 3 Chair/whm-hd-hchue transfer: 4 PT Exceptional Children Teacher Assistant Goals Detention Goals PT Detention Goals Time Frame: Sep 30, 2021 Roll Left & Right (QC): 6 Sit to Lying (QC): 6 Lying-Sitting on Side/Bed(QC): 6 Sit to Stand (QC): 4 Chair/Fdu-ub-Kcohe Xfer(QC): 4 Toilet Transfer (QC): 4 Car Transfer (QC): 3 Does the Patient Walk: No and Walking Goal NOT indicated Walk 10 feet (QC): 88 Walk 50ft with 2 Turns (QC): 88 Walk 150 ft (QC): 88 Walking 10ft on Uneven Surface: 88 1 Step (curb) (QC): 88 4 Steps (QC): 88 12 Steps (QC): 88 Picking up an Object (QC): 6 Wheel 50 feet with 2 turns (QC: 6 Wheel 150 feet: 6 PT Plan Treatment/Plan Treatment Plan: Continue Plan of Care Treatment Plan: Bed Mobility, Education, Functional Activity Julisa, Functional Strength, Group Therapy, Gait, Safety, Therapeutic Exercise, Transfers Treatment Duration: Sep 30, 2021 Frequency: At least 5 of 7 days/Wk (IRF) Estimated Hrs Per Day: 1.5 hours per day Patient and/or Family Agrees t: Yes Safety Risks/Education Patient Education: Transfer Techniques, Correct Positioning, W/C Management, Disease Process, Safety Issues Teaching Recipient: Patient Teaching Methods: Demonstration, Discussion Response to Teaching: Verbalize Understanding, Return Demonstration, Reinforcement Needed Time/GCodes Time In: 1000 Time Out: 1100 Total Billed Treatment Time: 60 Total Billed Treatment 1,FA60m PT OT co Rx 60 m ESHA AVILA BENEFITS COORDINATOR Sep 10, 2021 10:53
--- NOTE | 2021-09-10 11:12 | PM&R Progress Note ---
Subjective HPI/CC On Admission Date Seen by Provider: Sep 10, 2021 Time Seen by Provider: 11:15 Subjective/Events-last exam 09/10/2021: Patient doing well Pain medication maintained Remains max assist Accu-Cheks are good Hemoglobin 8.3 Creatinine 1.69 Bowels are moving Participating in all therapy Review of Systems General: Fatigue, Malaise Musculoskeletal: leg pain Objective Exam Vital Signs Vital Signs Date Time Temp Pulse Resp B/P (MAP) Pulse Ox O2 Delivery O2 Flow Rate FiO2 09/10/21 21:00 Room Air 09/10/21 20:00 36.8 74 20 146/67 (93) 94 Capillary Refill : General Appearance: No Apparent Distress, WD/WN, Chronically ill, Obese HEENT: PERRL/EOMI, Normal ENT Inspection, Pharynx Normal Neck: Full Range of Motion, Normal Inspection, Non Tender, Supple, Carotid Bruit Respiratory: Chest Non Tender, Lungs Clear, Normal Breath Sounds, No Accessory Muscle Use, No Respiratory Distress Cardiovascular: Regular Rate, Rhythm, No Edema, No Gallop, No JVD, No Murmur, Normal Peripheral Pulses Gastrointestinal: Normal Bowel Sounds, No Organomegaly, No Pulsatile Mass, Non Tender, Soft Back: Normal Inspection, No CVA Tenderness, No Vertebral Tenderness Extremity: Normal Capillary Refill, Normal Inspection, Normal Range of Motion, Non Tender, No Calf Tenderness, Other (right AKA haile in place, left BKA) Neurologic/Psychiatric: Alert, Oriented x3, No Motor/Sensory Deficits, Normal Mood/Affect Skin: Normal Color, Warm/Dry Lymphatic: No Adenopathy Results/Procedures Lab Laboratory Tests 09/10/21 05:45 Patient resulted labs reviewed. FIM Transfers Therapy Code Descriptions/Definitions Functional [place] Measure: 0=Not Assessed/NA 4=Minimal Assistance 1=Total Assistance 5=Supervision or Setup 2=Maximal Assistance 6=Modified [place] 3=Moderate Assistance 7=Complete IndependenceSCALE: Activities may be completed with or without assistive devices. 9-Lhraycifvu-gxetdxu completes the activity by him/herself with no assistance from a helper. 5-Set-up or Clean-up Assistance-helper sets up or cleans up; patient completes activity. [place] assists only prior to or following the activity. 4-Supervision or Touching Assistance-helper provides verbal cues and/or touching/steadying and/or contact guard assistance as patient completes activity. Assistance may be provided throughout the activity or intermittently. 3-Partial/Moderate Assistance-helper does LESS THAN HALF the effort. [place] lifts, holds or supports trunk or limbs, but provides less than half the effort. 2-Substantial/Maximal Assistance-helper does MORE THAN HALF the effort. [place] lifts or holds trunk or limbs and provides more than half the effort. 6-Mzcfjojnd-wrctbb does ALL the effort. Patient does none of the effort to complete the activity. Or, the assistance of 2 or more helpers is required for the patient to complete the activity. If activity was not attempted, code reason: 7-Patient Refused. 9-Not Applicable-not attempted and the patient did not perform the activity before the current illness, exacerbation or injury. 10-Not Attempted due to Environmental Limitations-(lack of equipment, weather restraints, etc.). 88-Not Attempted due to Medical Conditions or Safety Concerns. Roll Left to Right (QC): 6 Sit to Lying (QC): 4 Sit to Stand (QC): 88 Chair/Xcp-ns-Yyqwe Xfer(QC): 3 Car Transfer (QC): 88 Gait Training Walk 10 feet (QC): 88 Walk 50 ft with 2 Turns(QC): 88 Walk 150 ft (QC): 88 Walking 10ft/uneven surface-QC: 88 Wheelchair Training Does the Pt Use a Wheelchair?: Yes Wheel 50 ft with 2 turns (QC): 4 Wheel 150 ft (QC): 4 Type of Wheelchair: Manual Stair Training 1 Step (curb) (QC): 88 4 Steps (QC): 88 12 Steps (QC): 88 Balance Picking up an Object (QC): 6 ADL-Treatment Eating (QC): 6 (Pt independent with meal) Oral Hygiene (QC): 7 Bathing Location: L Arm, R Arm, L Upper Leg, Chest, Abdomen, Buttocks, Perineal Area Shower/Bathe Self (QC): 5 (Pt washed all areas with supplies gathered while seated on shower bench.) Upper Body Dressing (QC): 5 (pt able to complete with supplies gathered.) Lower Body Dressing (QC): 7 On/Off Footwear (QC): 88 Toileting Hygiene (QC): 7 Assessment/Plan Assessment and Plan Assess & Plan/Chief Complaint Assessment: s/p right AKA due to osteomyelitis Remote hx of left BKA DM HTN HLP Recent psychosis CKD Smoker Obesity Plan: Monitor closely DM management Pain control IRF protocol 09/10/2021: Continue aggressive therapy Monitor blood sugars (1) S/P AKA (above knee amputation) (2) Diabetes (3) History of left below knee amputation (4) Psychosis (5) CKD (chronic kidney disease) AFTAB BENZ DO Sep 10, 2021 11:12
--- NOTE | 2021-09-10 11:14 | Individualized Plan of Care ---
Individualized Plan of Care Rehab Nursing IPOC Order Admission Date Sep 09, 2021 at 13:30 Current Orders Orders Admission Order(Inpt,Obs,Sdc) (09/09/21 12:05) Vital Signs: Per Unit Policy ( 08,16,00 (09/09/21 12:05) Sequential Compression Device (09/09/21 12:05) Senior Controller-Inpt Rehab Con (09/09/21 12:05) Rehab Nursing Orders-Ipoc (09/09/21 12:05) Physical Therapy Rehab Orders (09/09/21 12:05) Occupational Therapy Rehab Ord (09/09/21 12:05) Speech Therapy Rehab Orders (09/09/21 12:05) Cbc With Automated Diff (09/10/21 06:00) Comprehensive Metabolic Panel (09/10/21 06:00) Precautions (Aru) (09/09/21 12:05) Rehab-Intensity Of Therapy (09/09/21 12:05) Initiate Admission Nursing Pro .admission (09/09/21 12:05) Alprazolam Tablet (Xanax Tablet) (09/09/21 12:15) Calcium Carbonate Chew Tablet (Antacid C (09/09/21 12:15) Diphenhydramine Tablet (Benadryl Tablet) (09/09/21 12:15) Docusate Sodium Capsule (Colace Capsule) (09/09/21 21:00) Docusate Sodium Capsule (Colace Capsule) (09/09/21 12:15) Bisacodyl Suppository (Dulcolax Supposit (09/09/21 12:15) Lactulose Oral Solution (Enulose Oral So (09/09/21 12:15) Na Phos/Na Biphos Enema (Fleet Enema Peter (09/09/21 12:15) Guaifenesin/Codeine Syrup (Robitussin Ac (09/09/21 12:15) Loperamide Tablet (Imodium Tablet) (09/09/21 12:15) Melatonin Tablet (Melatonin Tablet) (09/09/21 12:15) Polyethylene Glycol Powder Pkt (Miralax (09/09/21 21:00) Ondansetron Oral Dissolve Tab (Zofran (09/09/21 12:15) Senna S Tablet (Senokot S Tablet) (09/09/21 21:00) Initiate Admission Nursing Pro .admission (09/09/21 12:05) Acetaminophen Tablet (Tylenol Tablet) (09/09/21 12:15) Accucheck Achs ACHS (09/09/21 12:05) Insulin Aspart (Novolog) (Novolog (Charg (09/09/21 16:00) Amlodipine Tablet (Norvasc Tablet) (09/10/21 09:00) Aspirin Enteric Coated Tablet (Ecotrin T (09/10/21 09:00) Atorvastatin Tablet (Lipitor Tablet) (09/10/21 09:00) Clopidogrel Tablet (Plavix Tablet) (09/10/21 09:00) Ferrous Sulfate Tablet (Feosol Tablet) (09/10/21 09:00) Furosemide Tablet (Lasix Tablet) (09/09/21 12:15) Hydrocodone/Apap 7.5/325 Tab (Lortab 7. (09/09/21 12:15) Polyethylene Glycol Powder Pkt (Miralax (09/09/21 12:15) Senna S Tablet (Senokot S Tablet) (09/09/21 21:00) Sodium Bicarbonate Tablet (Nf) (Sodium B (09/09/21 13:00) (Nf) Liraglutide (Victoza 3-Simon) (09/10/21 09:00) (Nf) Olanzapine (09/09/21 12:15) Admission Arrival Bed Request (09/09/21 13:38) Cho 60g/M 3snack (16-2000 Fran) (09/09/21 Lunch) Acetaminophen Tablet/Caplet (Tylenol T (09/09/21 15:15) Olanzapine Tablet (Zyprexa Tablet) (09/09/21 15:15) Patient Visit (09/09/21 ) Wheelchair Mgmt/Propulsn 15min (09/09/21 ) Functional Activities, Ea 15 (09/09/21 ) Patient Visit (09/09/21 ) Pt Eval Moderate Complexity (09/09/21 ) Isolation Central Supply Req (09/09/21 15:56) Clonidine Tablet (Catapres Tablet) (09/09/21 16:45) Patient Visit (09/10/21 ) Speech Sound Lang Comp (09/10/21 ) Treat. Speech/Lang/Voice (09/10/21 ) Patient Visit (09/10/21 ) Functional Activities, Ea 15 (09/10/21 ) Rehab Nursing Orders: Ongoing Assess. of Cognitive Status, Ongoing Assess. of Function Status, Bladder Management, Bladder Scan, Bladder Training, Bowel Management, Bowel Training, Disease Management & Educaiton, DVT Prophylaxis, Fall Prevention, Fluid/Electrolyte/Nutrition Mgmt, Infection Prevention, Medication Management & Education, Management of Risks & Complications, M anagement of Skin Intergrity, Nutrition Management, Pain Management, Patient/Family Support, Safety Management, Weight Bearing Precaution, Wound Management Intensity of Therapy to be met Patient to be seen: Min.3h per day/5 of 7d PT IPOC Problem List: Activity Tolerance, Balance, Transfer, Bed Mobility Treatment Plan: Continue Plan of Care Bed Mobility, Education, Functional Activity Julisa, Functional Strength, Group T herapy, Gait, Safety, Therapeutic Exercise, Transfers Treatment Duration: Sep 30, 2021 Frequency: At least 5 of 7 days/Wk (IRF) Estimated Hrs Per Day: 1.5 hours per day OT IPOC Problems: Decreased Activ Tolerance, Dependent Transfers, Impaired Bed Mobility, Impaired Funct Balance, Impaired Self-Care Skills OT Treatment, Training and Edu: Yes Plan of Care: ADL Retraining, Functional Mobility, Group Exercise/Act as Ind, UE Funct Exercise/Act Treatment Duration: Oct 09, 2021 Frequency: At least 5 of 7 days/Wk (IRF) Estimated Hrs Per Day: 1.[address] IPOC Speech Therapy Treatment Plan: Discontinue ST Treatment Duration: Sep 10, 2021 Frequency: 1 time per week Estimated Hrs Per Day: .5 hour per day Senior Controller/Case Mgmt Senior Controller/Case Managemen: Discharge Planning Dietitian/Associate Professor Of Forestry Dietitian/Associate Professor Of Forestry to monitor nutritional status and make changes and/or recommendations as needed and work with speech pathology on dietary upgrades as the occur. Physician IPOC Medical Issues being managed closely and that require the 24 hour availability of a physician: Patient with recent right AKA and remote history of left BKA with recent psychosis following the surgery will require close monitoring with blood sugar management blood pressure management and patient is considered high risk for decompensation Medical Issues: Bowel/Bladder Function, DVT Prophylaxis, Falls Precautions, Fluid/Electrolyte/Nutrition Balance, Infection Protection, Pain Management, Wound Care Brief Synthesis of Preadmission Screen, Post-Admission Evaluation, and Therapy Evaluations: PT and OT will focus on use of assistive devices in order to regain function and independence with use of wheelchair and slide board and return to independent living Medical Prognosis: Fair Anticipated Length of Stay: 14 days AFTAB BENZ DO Sep 10, 2021 11:14
--- NOTE | 2021-09-10 14:24 | Therapy Group Daily Note ---
Therapy Daily Group Note Patient Education Topic Other List Below Exercises LE Seated Exercise, UE Exercise Session Ratio (pt:therapist): 4:1 Goal of Session: Education on ARU Expectations, UE/LE Strengthing, Safety with Transfers, Use of Adaptive Equipment Goal Met for this Session: Yes Pt Benefit of Group: Contributions to Others, F/U Use of Strategies @Home, Increased Functional Safety, Increased Functional Strength, Improved Cognition, Recognition of Peers, Socialization Other/Notes Pt propelled self in w/c to [facility] area for OT group. Group consisted of introductions(name, place living, random questions), socialization, seated B UE/LE exercises lead by therapist/peers and educational topics of bed mobility, use of hospital bed and tub transfers (SC,tub transfer bench). Pt introduced self appropriately and actively listened to peers. Pt able to complete B UE exercises, limited AROM with B LE's due to R AKA and L BKA. Pt acknowledged understanding of educational topics by actively listening and nodding head in affirmation. After session, pt sitting in w/c with call light/phone in reach. All needs met in room. Start Time: 13:00 Stop Time: 14:00 Total Billed Treatment Time: 60 Total Billed Treatment 1-RAMIN MEDEL Sep 10, 2021 14:24
[2021-09-10 20:00] VITALS: BP 146/67
[2021-09-10] MEDS: ALPRAZolam 0.25 MG (XANAX) TAB PO PRN (23:56)
--- NOTE | 2021-09-11 05:54 | PM&R Progress Note ---
Subjective HPI/CC On Admission Date Seen by Provider: Sep 11, 2021 Time Seen by Provider: 11:30 Subjective/Events-last exam 09/11/21: Patient doing well Wrapping stump with LISSY wraps Pain controlled BM+ 09/10/2021: Patient doing well Pain medication maintained Remains max assist Accu-Cheks are good Hemoglobin 8.3 Creatinine 1.69 Bowels are moving Participating in all therapy Review of Systems Musculoskeletal: leg pain Objective Exam Vital Signs Vital Signs Date Time Temp Pulse Resp B/P (MAP) Pulse Ox O2 Delivery O2 Flow Rate FiO2 09/11/21 21:00 98 Room Air 09/11/21 20:00 36.8 69 20 135/64 (87) Capillary Refill : General Appearance: No Apparent Distress, WD/WN, Chronically ill, Obese HEENT: PERRL/EOMI, Normal ENT Inspection, Pharynx Normal Neck: Full Range of Motion, Normal Inspection, Non Tender, Supple, Carotid Bruit Respiratory: Chest Non Tender, Lungs Clear, Normal Breath Sounds, No Accessory Muscle Use, No Respiratory Distress Cardiovascular: Regular Rate, Rhythm, No Edema, No Gallop, No JVD, No Murmur, Normal Peripheral Pulses Gastrointestinal: Normal Bowel Sounds, No Organomegaly, No Pulsatile Mass, Non Tender, Soft Back: Normal Inspection, No CVA Tenderness, No Vertebral Tenderness Extremity: Normal Capillary Refill, Normal Inspection, Normal Range of Motion, Non Tender, No Calf Tenderness, Other (right AKA haile in place, left BKA) Neurologic/Psychiatric: Alert, Oriented x3, No Motor/Sensory Deficits, Normal Mood/Affect Skin: Normal Color, Warm/Dry Lymphatic: No Adenopathy Results/Procedures Lab Patient resulted labs reviewed. FIM Transfers Therapy Code Descriptions/Definitions Functional [place] Measure: 0=Not Assessed/NA 4=Minimal Assistance 1=Total Assistance 5=Supervision or Setup 2=Maximal Assistance 6=Modified [place] 3=Moderate Assistance 7=Complete IndependenceSCALE: Activities may be completed with or without assistive devices. 6-Nvwbrafeid-tmmfwbj completes the activity by him/herself with no assistance from a helper. 5-Set-up or Clean-up Assistance-helper sets up or cleans up; patient completes activity. [place] assists only prior to or following the activity. 4-Supervision or Touching Assistance-helper provides verbal cues and/or touching /steadying and/or contact guard assistance as patient completes activity. Assistance may be provided throughout the activity or intermittently. 3-Partial/Moderate Assistance-helper does LESS THAN HALF the effort. [place] lifts, holds or supports trunk or limbs, but provides less than half the effort. 2-Substantial/Maximal Assistance-helper does MORE THAN HALF the effort. [place] lifts or holds trunk or limbs and provides more than half the effort. 6-Ircdvewth-yjrbfs does ALL the effort. Patient does none of the effort to complete the activity. Or, the assistance of 2 or more helpers is required for the patient to complete the activity. If activity was not attempted, code reason: 7-Patient Refused. 9-Not Applicable-not attempted and the patient did not perform the activity before the current illness, exacerbation or injury. 10-Not Attempted due to Environmental Limitations-(lack of equipment, weather restraints, etc.). 88-Not Attempted due to Medical Conditions or Safety Concerns. Roll Left to Right (QC): 6 Sit to Lying (QC): 4 Sit to Stand (QC): 88 Chair/Ufo-xk-Bfdhu Xfer(QC): 3 Car Transfer (QC): 88 Gait Training Walk 10 feet (QC): 88 Walk 50 ft with 2 Turns(QC): 88 Walk 150 ft (QC): 88 Walking 10ft/uneven surface-QC: 88 Wheelchair Training Does the Pt Use a Wheelchair?: Yes Wheel 50 ft with 2 turns (QC): 4 Wheel 150 ft (QC): 4 Type of Wheelchair: Manual Stair Training 1 Step (curb) (QC): 88 4 Steps (QC): 88 12 Steps (QC): 88 Balance Picking up an Object (QC): 6 ADL-Treatment Eating (QC): 6 (Pt independent with meal) Oral Hygiene (QC): 6 (Per clinical judgment, pt able to complete independently in sitting.) Bathing Location: L Arm, R Arm, L Upper Leg, R Upper Leg, L Lower Leg (including foot) (BKA), R Lower Leg (including foot) (AKA), Chest, Abdomen, Buttocks, Perineal Area Shower/Bathe Self (QC): 4 (Sitting on shower shower bench, pt able to bathe self with SBA for safety after set up.) Upper Body Dressing (QC): 5 (pt able to complete with supplies gathered.) Lower Body Dressing (QC): 3 (In supine assist to thread B stumps into pants then pt able to hike over hips rolling side to side.) On/Off Footwear (QC): 88 Toileting Hygiene (QC): 7 Assessment/Plan Assessment and Plan Assess & Plan/Chief Complaint Assessment: s/p right AKA due to osteomyelitis Remote hx of left BKA DM HTN HLP Recent psychosis CKD Smoker Obesity Plan: Monitor closely DM management Pain control IRF protocol 09/10/2021: Continue aggressive therapy Monitor blood sugars 09/11/21: DC accuchecks Monitor pain (1) S/P AKA (above knee amputation) (2) Diabetes (3) History of left below knee amputation (4) Psychosis (5) CKD (chronic kidney disease) AFTAB BENZ DO Sep 11, 2021 05:54
[2021-09-11] MEDS: inSUlin ASPART (NovoLOG) 1 UNIT/0.01 ML (CHARGE PER UNIT) SC SCH (06:11)
[2021-09-11] MEDS: HYDROcodone/APAP 7.5 MG/325 MG (LORTAB, LORCET PLUS) TABLET PO PRN (06:27)
[2021-09-11 07:49] VITALS: BP 161/68
[2021-09-11] MEDS: SENNA W/DOCUSATE (SENOKOT S) TABLET PO SCH ×2 (08:03→21:28)
[2021-09-11] MEDS: DOCUSATE SODIUM 100 MG (COLACE) CAP PO SCH ×2 (08:03→21:28)
[2021-09-11] MEDS: CLOPIDOGREL 75 MG (PLAVIX) TABLET PO SCH (08:03)
[2021-09-11] MEDS: polyethylene glycoL POWDER 17 GM (MIRALAX) PACK PO SCH ×2 (08:03→21:37)
[2021-09-11] MEDS: ASPIRIN E.C. 81 MG (ECOTRIN) TAB PO SCH (08:03)
[2021-09-11] MEDS: FERROUS SULF 325 MG (IRON) TAB PO SCH (08:03)
[2021-09-11] MEDS: amLODIPine 10 MG (NORVASC) TAB PO SCH (08:03)
[2021-09-11] MEDS: AtorvaSTATin TABLET 10 MG TABLET PO SCH (08:03)
[2021-09-11] MEDS: SODIUM BICARBONATE 650 MG TABLET (NON-FORMULARY) PO SCH ×3 (08:03→21:28)
--- NOTE | 2021-09-11 10:54 | Physical Therapy Daily Note ---
PT Daily Note-Current Subjective Patient in bed pre tx, agrees to PT, voices no complaints of pain. Will be co- treating with OT due to poor patient mobility, strength, endurance, challenging transfers due to bilateral amputation, coordinate UE and LE during activity, safety and reduce risk of falls. Appearance Patient in WC at bedside post tx with nurse call, phone, tray, all needs met. Mental Status Patient Orientation: Person, Place, Situation Transfers SCALE: Activities may be completed with or without assistive devices. 4-Ixwavbhaui-mwxdhmy completes the activity by him/herself with no assistance from a helper. 5-Set-up or Clean-up Assistance-helper sets up or cleans up; patient completes activity. [place] assists only prior to or following the activity. 4-Supervision or Touching Assistance-helper provides verbal cues and/or touching/steadying and/or contact guard assistance as patient completes activity. Assistance may be provided throughout the activity or intermittently. 3-Partial/Moderate Assistance-helper does LESS THAN HALF the effort. [place] lifts, holds or supports trunk or limbs, but provides less than half the effort. 2-Substantial/Maximal Assistance-helper does MORE THAN HALF the effort. [place] lifts or holds trunk or limbs and provides more than half the effort. 3-Nfofdxngg-isrfsx does ALL the effort. Patient does none of the effort to complete the activity. Or, the assistance of 2 or more helpers is required for the patient to complete the activity. If activity was not attempted, code reason: 7-Patient Refused. 9-Not Applicable-not attempted and the patient did not perform the activity before the current illness, exacerbation or injury. 10-Not Attempted due to Environmental Limitations-(lack of equipment, weather restraints, etc.). 88-Not Attempted due to Medical Conditions or Safety Concerns. Roll Left & Right (QC): 4 Sit to Lying (QC): 4 Lying to Sitting/Side of Bed(Q: 3 Chair/Emi-hr-Zpbkk Xfer(QC): 3 Patient sits up in bed with min assist, then slides backward into with min/mod assist. The backward transfer is pretty awkward and slow, a sliding board will be used from now on. Then after patient gets to he propels to shower room and performs a sliding board transfer to tub bench and then back. He propels to therapy gym and sliding board transfer to therapy table, lays down and then rolls onto stomach for hip flexor stretch, rolls back, sits up with min assist, then transfers to WC and then back to his room. Sliding board transfers are mod assist. Wheelchair Training Does the Pt Use a Wheelchair?: Yes Wheel 50 ft with 2 turns (QC): 6 Type of Wheelchair: Manual 120'x2 Exercises prone hip flexor stretch 5 min Treatments PT performed bed mobility, transfers, WC mobility, stretching, OT performed UE positioning and safety during activity, assisted with shower transfer trouble shooting. Assessment Current Status: Fair Progress Patient needs more UE strength to improve sliding board transfers PT Short Term Goals Short Term Goals Time Frame: Sep 16, 2021 Roll Left & Right: 6 Sit to lyin Lying to sitting on side of be: 4 Sit to stand: 3 Chair/opb-af-qzdys transfer: 4 PT Frame Maker Goals Custodial Goals PT Frame Maker Goals Time Frame: Sep 30, 2021 Roll Left & Right (QC): 6 Sit to Lying (QC): 6 Lying-Sitting on Side/Bed(QC): 6 Sit to Stand (QC): 4 Chair/Ppu-wt-Yyole Xfer(QC): 4 Toilet Transfer (QC): 4 Car Transfer (QC): 3 Does the Patient Walk: No and Walking Goal NOT indicated Walk 10 feet (QC): 88 Walk 50ft with 2 Turns (QC): 88 Walk 150 ft (QC): 88 Walking 10ft on Uneven Surface: 88 1 Step (curb) (QC): 88 4 Steps (QC): 88 12 Steps (QC): 88 Picking up an Object (QC): 6 Wheel 50 feet with 2 turns (QC: 6 Wheel 150 feet: 6 PT Plan Problem List Problem List: Activity Tolerance, Functional Strength, Safety, Balance, Gait, Transfer, Bed Mobility, ROM Treatment/Plan Treatment Plan: Continue Plan of Care Treatment Plan: Bed Mobility, Education, Functional Activity Julisa, Functional Strength, Group Therapy, Gait, Safety, Therapeutic Exercise, Transfers Treatment Duration: Sep 30, 2021 Frequency: At least 5 of 7 days/Wk (IRF) Estimated Hrs Per Day: 1.5 hours per day Patient and/or Family Agrees t: Yes Safety Risks/Education Patient Education: Transfer Techniques, Correct Positioning, W/C Management, Safety Issues Teaching Recipient: Patient, Primary Caregiver, Significant Other Response to Teaching: Reinforcement Needed Time/GCodes Time In: 1000 Time Out: 1100 Total Billed Treatment Time: 60 Total Billed Treatment 1 visit FA 60' co-treated for 60' NEFTALY MITCHELL PT Sep 11, 2021 10:54
--- NOTE | 2021-09-11 10:56 | Occupational Ther Daily Note ---
OT Current Status-Daily Note Subjective Pt supine in bed, alert. No c/o pain. Pt agrees to therapy. Mental Status/Objective Patient Orientation: Person, Place, Time, Situation ADL-Treatment Pt washed face and completed oral care while seated in W/C at sink. Therapy Code Descriptions/Definitions Functional [place] Measure: 0=Not Assessed/NA 4=Minimal Assistance 1=Total Assistance 5=Supervision or Setup 2=Maximal Assistance 6=Modified [place] 3=Moderate Assistance 7=Complete IndependenceSCALE: Activities may be completed with or without assistive devices. 4-Krbqtvmpkv-wbyntxb completes the activity by him/herself with no assistance from a helper. 5-Set-up or Clean-up Assistance-helper sets up or cleans up; patient completes activity. [place] assists only prior to or following the activity. 4-Supervision or Touching Assistance-helper provides verbal cues and/or touching/steadying and/or contact guard assistance as patient completes activ ity. Assistance may be provided throughout the activity or intermittently. 3-Partial/Moderate Assistance-helper does LESS THAN HALF the effort. [place] lifts, holds or supports trunk or limbs, but provides less than half the effort. 2-Substantial/Maximal Assistance-helper does MORE THAN HALF the effort. [place] lifts or holds trunk or limbs and provides more than half the effort. 7-Yvfzdlwhi-gdcybq does ALL the effort. Patient does none of the effort to complete the activity. Or, the assistance of 2 or more helpers is required for the patient to complete the activity. If activity was not attempted, code reason: 7-Patient Refused. 9-Not Applicable-not attempted and the patient did not perform the activity before the current illness, exacerbation or injury. 10-Not Attempted due to Environmental Limitations-(lack of equipment, weather restraints, etc.). 88-Not Attempted due to Medical Conditions or Safety Concerns. Oral Hygiene (QC): 6 (Independent sitting at sink) Other Treatment 1st Session- ([id number]) PT/OT cotreat with pt ([id number]), 2 clinicians required for skilled treatment to decrease fall risk, increase functional mobility and activity tolerance. PT focused on mobility and transfers while OT focused on functional transfers/mobility, AE education. See PT notes on transfer progress. Pt supine from bed ->sit Min A , EOB->w/c by scooting self backwards into w/c with Min A and VC given on hand placement. Pt propelled w/c to shower room. Skilled instruction on transfer w/c <->shower bench given. Pt educated with good return, VC given on hand placement during transfers. Pt propelled to therapy room to mat, w/c <--> mat CGA using SB with VC on hand placement. Pt requested to use urinal. Assist given to place and hold due to tightness of pants. After session, pt sitting in w/c with call light/phone in reach. Friend present in room. 2nd Session- ([id number]) Pt propelled in w/c to therapy room. Pt engaged in therapeutic exercise to strengthen B UE and increase activity tolerance for ADL tasks. Pt given green theraband (med resistance) 15 reps x2 sets horizontal shoulder abduction, 10 reps x2 sets external rotation, 15 reps x2 sets B bicep curls, 10 reps x2 B tricep extensions. After session, pt sitting in w/c with call light/phone within reach. All needs met in room. Education OT Patient Education: Safety issues, Transfer techniques, Use of adapted equipment Teaching Recipient: Patient Teaching Methods: Demonstration, Discussion Response to Teaching: Verbalize Understanding, Return Demonstration, Reinforcement Needed OT Short Term Goals Short Term Goals Time Frame: Sep 23, 2021 Toileting hygiene: 3 Shower/bathe self: 3 Lower body dressin Putting on/taking off footwear: 3 OT Prison Goals Registered Nurse Post Partum Goals Time Frame: Oct 09, 2021 Eating (QC): 6 Oral Hygiene (QC): 6 Toileting Hygiene (QC): 4 Shower/Bathe Self (QC): 4 Upper Body Dressing (QC): 6 Lower Body Dressing (QC): 4 On/Off Footwear (QC): 5 (LLE prosthesis only) Additional Goals: 1-Demonstrate ADL Tasks, 2-Verbalize Understanding, 3- ImproveStrength/Julisa 1=Demonstrate adherence to instructed precautions during ADL tasks. 2=Patient will verbalize/demonstrate understanding of assistive devices/modifications for ADL. 3=Patient will improve strength/tolerance for activity to enable patient to perform ADL's. OT Education/Plan Problem List/Assessment Assessment: Decreased Activ Tolerance, Decreased Safety Aware, Decreased UE Strength, Dependent Transfers, Impaired Funct Balance, Impaired Self-Care Skills Discharge Recommendations Plan/Recommendations: Continue POC Treatment Plan/Plan of Care Patient would benefit from OT for education, treatment and training to promote independence in ADL's, mobility, safety and/or upper extremity function for ADL's. Plan of Care: ADL Retraining, Functional Mobility, Group Exercise/Act as Ind, UE Funct Exercise/Act Treatment Duration: Oct 09, 2021 Frequency: At least 5 of 7 days/Wk (IRF) Estimated Hrs Per Day: 1.5 hours per day Rehab Potential: Fair Time/GCodes Start Time: 10:00 (1300) Stop Time: 11:00 (1330) Total Time Billed (hr/min): 90 Billed Treatment Time 1 Visit- ADL (15 min) FA 3 (45 min) (Co-treat with PT [id number]) 1 Visit- EX 2 (30 min) RAMIN FAULKNER Sep 11, 2021 10:56
--- NOTE | 2021-09-11 13:55 | Physical Therapy Daily Note ---
PT Daily Note-Current Subjective Patient in WC pre tx, agrees to PT, has no complaints of pain. Appearance Patient in WC at bedside post tx with nurse call, phone, tray, all needs met. Mental Status Patient Orientation: Person, Place, Situation Transfers SCALE: Activities may be completed with or without assistive devices. 6-Yxyakvuhfm-nifnhxd completes the activity by him/herself with no assistance from a helper. 5-Set-up or Clean-up Assistance-helper sets up or cleans up; patient completes activity. [place] assists only prior to or following the activity. 4-Supervision or Touching Assistance-helper provides verbal cues and/or touc jennifer/steadying and/or contact guard assistance as patient completes activity. Assistance may be provided throughout the activity or intermittently. 3-Partial/Moderate Assistance-helper does LESS THAN HALF the effort. [place] lifts, holds or supports trunk or limbs, but provides less than half the effort. 2-Substantial/Maximal Assistance-helper does MORE THAN HALF the effort. [place] lifts or holds trunk or limbs and provides more than half the effort. 6-Bwmowvrra-ktrcsz does ALL the effort. Patient does none of the effort to complete the activity. Or, the assistance of 2 or more helpers is required for the patient to complete the activity. If activity was not attempted, code reason: 7-Patient Refused. 9-Not Applicable-not attempted and the patient did not perform the activity before the current illness, exacerbation or injury. 10-Not Attempted due to Environmental Limitations-(lack of equipment, weather restraints, etc.). 88-Not Attempted due to Medical Conditions or Safety Concerns. Wheelchair Training Does the Pt Use a Wheelchair?: Yes Wheel 50 ft with 2 turns (QC): 4 Wheel 150 ft (QC): 4 Type of Wheelchair: Manual 200'x2, rest break between, very slow Exercises 3 sets of 10 of chair pushups. Treatments WC mobility, UE strengthening Assessment Current Status: Fair Progress needs UE strengthening to improve transfers PT Short Term Goals Short Term Goals Time Frame: Sep 16, 2021 Roll Left & Right: 6 Sit to lyin Lying to sitting on side of be: 4 Sit to stand: 3 Chair/jae-bb-wdisf transfer: 4 PT Service Department Manager Goals Service Department Manager Goals PT Service Department Manager Goals Time Frame: Sep 30, 2021 Roll Left & Right (QC): 6 Sit to Lying (QC): 6 Lying-Sitting on Side/Bed(QC): 6 Sit to Stand (QC): 4 Chair/Izg-li-Ukfbf Xfer(QC): 4 Toilet Transfer (QC): 4 Car Transfer (QC): 3 Does the Patient Walk: No and Walking Goal NOT indicated Walk 10 feet (QC): 88 Walk 50ft with 2 Turns (QC): 88 Walk 150 ft (QC): 88 Walking 10ft on Uneven Surface: 88 1 Step (curb) (QC): 88 4 Steps (QC): 88 12 Steps (QC): 88 Picking up an Object (QC): 6 Wheel 50 feet with 2 turns (QC: 6 Wheel 150 feet: 6 PT Plan Problem List Problem List: Activity Tolerance, Functional Strength, Safety, Balance, Gait, Transfer, Bed Mobility, ROM Treatment/Plan Treatment Plan: Continue Plan of Care Treatment Plan: Bed Mobility, Education, Functional Activity Julisa, Functional Strength, Group Therapy, Gait, Safety, Therapeutic Exercise, Transfers Treatment Duration: Sep 30, 2021 Frequency: At least 5 of 7 days/Wk (IRF) Estimated Hrs Per Day: 1.5 hours per day Patient and/or Family Agrees t: Yes Safety Risks/Education Patient Education: Correct Positioning, W/C Management, Safety Issues Teaching Recipient: Patient Teaching Methods: Demonstration, Discussion Response to Teaching: Reinforcement Needed Time/GCodes Time In: 1330 Time Out: 1400 Total Billed Treatment Time: 30 Total Billed Treatment 1 visit FA 20' EX 10' NEFTALY MITCHELL PT Sep 11, 2021 13:55
[2021-09-11 20:00] VITALS: BP 135/64
[2021-09-12 07:29] VITALS: BP 146/68
[2021-09-12] MEDS: AtorvaSTATin TABLET 10 MG TABLET PO SCH (08:59)
[2021-09-12] MEDS: DOCUSATE SODIUM 100 MG (COLACE) CAP PO SCH ×2 (08:59→20:57)
[2021-09-12] MEDS: SODIUM BICARBONATE 650 MG TABLET (NON-FORMULARY) PO SCH ×3 (09:00→20:58)
[2021-09-12] MEDS: FERROUS SULF 325 MG (IRON) TAB PO SCH (09:00)
[2021-09-12] MEDS: ASPIRIN E.C. 81 MG (ECOTRIN) TAB PO SCH (09:00)
[2021-09-12] MEDS: amLODIPine 10 MG (NORVASC) TAB PO SCH (09:01)
[2021-09-12] MEDS: CLOPIDOGREL 75 MG (PLAVIX) TABLET PO SCH (09:01)
[2021-09-12] MEDS: SENNA W/DOCUSATE (SENOKOT S) TABLET PO SCH ×2 (09:02→21:23)
[2021-09-12] MEDS: polyethylene glycoL POWDER 17 GM (MIRALAX) PACK PO SCH ×2 (09:02→21:22)
--- NOTE | 2021-09-12 09:54 | Physical Therapy Daily Note ---
PT Daily Note-Current Subjective Pt laying Supine in bed. Pt reports hadn't had breakfast yet and breakfast was ordered for pt. Pain Location: Right Location Body Site: Thigh Pain Description: Ache, Tightness Mental Status Patient Orientation: Person, Place, Time, Situation Transfers SCALE: Activities may be completed with or without assistive devices. 6-Jczywacgec-zgvjori completes the activity by him/herself with no assistance from a helper. 5-Set-up or Clean-up Assistance-helper sets up or cleans up; patient completes activity. [place] assists only prior to or following the activity. 4-Supervision or Touching Assistance-helper provides verbal cues and/or touching/steadying and/or contact guard assistance as patient completes activity. Assistance may be provided throughout the activity or intermittently. 3-Partial/Moderate Assistance-helper does LESS THAN HALF the effort. [place] lifts, holds or supports trunk or limbs, but provides less than half the effort. 2-Substantial/Maximal Assistance-helper does MORE THAN HALF the effort. [place] lifts or holds trunk or limbs and provides more than half the effort. 4-Blyxwzprd-tjjelc does ALL the effort. Patient does none of the effort to complete the activity. Or, the assistance of 2 or more helpers is required for the patient to complete the activity. If activity was not attempted, code reason: 7-Patient Refused. 9-Not Applicable-not attempted and the patient did not perform the activity before the current illness, exacerbation or injury. 10-Not Attempted due to Environmental Limitations-(lack of equipment, weather restraints, etc.). 88-Not Attempted due to Medical Conditions or Safety Concerns. Exercises Supine Ex: Quad Set, Glut sets, Heel Slides, Short Arc Quads, Straight leg raise, Hip abd/add Supine Reps: 10 Seated Therapy Exercises: Long arc quads, Hip flexion, Glut set Seated Reps: 10 Treatments FURNITURE INSTALLER gives and reviews written HEP for Supine & Seated Ex. Pt discusses home transfer situation sandra. in regards to showering. Pt resting with all needs met, call light in hand. Breakfast arriving. Assessment Current Status: Good Progress Pt reports feeling comfortable with HEP. Pt tolerate tx well. PT Short Term Goals Short Term Goals Time Frame: Sep 16, 2021 Roll Left & Right: 6 Sit to lyin Lying to sitting on side of be: 4 Sit to stand: 3 Chair/wyw-lx-lzbck transfer: 4 PT Skilled Nursing Goals Book Packer Goals PT Skilled Nursing Goals Time Frame: Sep 30, 2021 Roll Left & Right (QC): 6 Sit to Lying (QC): 6 Lying-Sitting on Side/Bed(QC): 6 Sit to Stand (QC): 4 Chair/Dqv-of-Qkusa Xfer(QC): 4 Toilet Transfer (QC): 4 Car Transfer (QC): 3 Does the Patient Walk: No and Walking Goal NOT indicated Walk 10 feet (QC): 88 Walk 50ft with 2 Turns (QC): 88 Walk 150 ft (QC): 88 Walking 10ft on Uneven Surface: 88 1 Step (curb) (QC): 88 4 Steps (QC): 88 12 Steps (QC): 88 Picking up an Object (QC): 6 Wheel 50 feet with 2 turns (QC: 6 Wheel 150 feet: 6 PT Plan Treatment/Plan Treatment Plan: Continue Plan of Care Treatment Plan: Bed Mobility, Education, Functional Activity Julisa, Functional Strength, Group Therapy, Gait, Safety, Therapeutic Exercise, Transfers Treatment Duration: Sep 30, 2021 Frequency: At least 5 of 7 days/Wk (IRF) Estimated Hrs Per Day: 1.5 hours per day Patient and/or Family Agrees t: Yes Safety Risks/Education Patient Education: Issued Written HEP Teaching Recipient: Patient Teaching Methods: Demonstration, Discussion Response to Teaching: Verbalize Understanding, Return Demonstration Time/GCodes Time In: 820 Time Out: 850 Total Billed Treatment Time: 30 Total Billed Treatment 1, EX x2 (30m) TREE MEDELLIN FURNITURE INSTALLER Sep 12, 2021 09:54
--- NOTE | 2021-09-12 10:58 | PM&R Progress Note ---
Subjective HPI/CC On Admission Date Seen by Provider: Sep 12, 2021 Time Seen by Provider: 11:00 Subjective/Events-last exam 09/12/21: Patient doing well [place] are ok BM + Pain reported but is controlled 09/11/21: Patient doing well Wrapping stump with LISSY wraps Pain controlled BM+ 09/10/2021: Patient doing well Pain medication maintained Remains max assist Accu-Cheks are good Hemoglobin 8.3 Creatinine 1.69 Bowels are moving Participating in all therapy Review of Systems General: Fatigue, Malaise Musculoskeletal: leg pain Objective Exam Vital Signs Vital Signs Date Time Temp Pulse Resp B/P (MAP) Pulse Ox O2 Delivery O2 Flow Rate FiO2 09/13/21 07:08 36.6 62 18 134/64 (87) 97 Room Air Capillary Refill : General Appearance: No Apparent Distress, WD/WN, Chronically ill, Obese HEENT: PERRL/EOMI, Normal ENT Inspection, Pharynx Normal Neck: Full Range of Motion, Normal Inspection, Non Tender, Supple, Carotid Bruit Respiratory: Chest Non Tender, Lungs Clear, Normal Breath Sounds, No Accessory Muscle Use, No Respiratory Distress Cardiovascular: Regular Rate, Rhythm, No Edema, No Gallop, No JVD, No Murmur, Normal Peripheral Pulses Gastrointestinal: Normal Bowel Sounds, No Organomegaly, No Pulsatile Mass, Non Tender, Soft Back: Normal Inspection, No CVA Tenderness, No Vertebral Tenderness Extremity: Normal Capillary Refill, Normal Inspection, Normal Range of Motion, Non Tender, No Calf Tenderness, Other (right AKA haile in place, left BKA) Neurologic/Psychiatric: Alert, Oriented x3, No Motor/Sensory Deficits, Normal Mood/Affect Skin: Normal Color, Warm/Dry Lymphatic: No Adenopathy Results/Procedures Lab Patient resulted labs reviewed. FIM Transfers Therapy Code Descriptions/Definitions Functional [place] Measure: 0=Not Assessed/NA 4=Minimal Assistance 1=Total Assistance 5=Supervision or Setup 2=Maximal Assistance 6=Modified [place] 3=Moderate Assistance 7=Complete IndependenceSCALE: Activities may be completed with or without assistive devices. 6-Efzaqxnukc-llbwbcj completes the activity by him/herself with no assistance from a helper. 5-Set-up or Clean-up Assistance-helper sets up or cleans up; patient completes activity. [place] assists only prior to or following the activity. 4-Supervision or Touching Assistance-helper provides verbal cues and/or touching/steadying and/or contact guard assistance as patient completes activity. Assistance may be provided throughout the activity or intermittently. 3-Partial/Moderate Assistance-helper does LESS THAN HALF the effort. [place] lifts, holds or supports trunk or limbs, but provides less than half the effort. 2-Substantial/Maximal Assistance-helper does MORE THAN HALF the effort. [place] lifts or holds trunk or limbs and provides more than half the effort. 5-Tjwkgynfb-ygdtpg does ALL the effort. Patient does none of the effort to co mplete the activity. Or, the assistance of 2 or more helpers is required for the patient to complete the activity. If activity was not attempted, code reason: 7-Patient Refused. 9-Not Applicable-not attempted and the patient did not perform the activity before the current illness, exacerbation or injury. 10-Not Attempted due to Environmental Limitations-(lack of equipment, weather restraints, etc.). 88-Not Attempted due to Medical Conditions or Safety Concerns. Roll Left to Right (QC): 4 Sit to Lying (QC): 4 Sit to Stand (QC): 88 Chair/Ojs-ee-Larfo Xfer(QC): 3 Car Transfer (QC): 88 Gait Training Walk 10 feet (QC): 88 Walk 50 ft with 2 Turns(QC): 88 Walk 150 ft (QC): 88 Walking 10ft/uneven surface-QC: 88 Wheelchair Training Does the Pt Use a Wheelchair?: Yes Wheel 50 ft with 2 turns (QC): 4 Wheel 150 ft (QC): 4 Type of Wheelchair: Manual Stair Training 1 Step (curb) (QC): 88 4 Steps (QC): 88 12 Steps (QC): 88 Balance Picking up an Object (QC): 6 ADL-Treatment Eating (QC): 6 (Pt independent with meal) Oral Hygiene (QC): 6 (Independent sitting at sink) Bathing Location: L Arm, R Arm, L Upper Leg, R Upper Leg, L Lower Leg (including foot) (BKA), R Lower Leg (including foot) (AKA), Chest, Abdomen, Buttocks, Perineal Area Shower/Bathe Self (QC): 4 (Sitting on shower shower bench, pt able to bathe self with SBA for safety after set up.) Upper Body Dressing (QC): 5 (pt able to complete with supplies gathered.) Lower Body Dressing (QC): 3 (In supine assist to thread B stumps into pants then pt able to hike over hips rolling side to side.) On/Off Footwear (QC): 88 Toileting Hygiene (QC): 7 Assessment/Plan Assessment and Plan Assess & Plan/Chief Complaint Assessment: s/p right AKA due to osteomyelitis Remote hx of left BKA DM HTN HLP Recent psychosis CKD Smoker Obesity Plan: Monitor closely DM management Pain control IRF protocol 09/10/2021: Continue aggressive therapy Monitor blood sugars 09/11/21: DC accuchecks Monitor pain 09/12/21: Monitor closely Pain controlled (1) S/P AKA (above knee amputation) (2) Diabetes (3) History of left below knee amputation (4) Psychosis (5) CKD (chronic kidney disease) AFTAB BENZ DO Sep 12, 2021 10:58
[2021-09-12 19:40] VITALS: BP 147/66
[2021-09-12] MEDS: MELATONIN 3 MG TABLET PO PRN (20:58)
[2021-09-12] MEDS: HYDROcodone/APAP 7.5 MG/325 MG (LORTAB, LORCET PLUS) TABLET PO PRN (20:58)
[2021-09-13 07:08] VITALS: BP 134/64
--- NOTE | 2021-09-13 07:44 | PM&R Progress Note ---
Subjective HPI/CC On Admission Date Seen by Provider: Sep 13, 2021 Time Seen by Provider: 14:45 Subjective/Events-last exam 09/13/21: Patient doing well Tearful at times at bedside Behavioral consult will be performed [facility] will be pursued by 09/12/21: Patient doing well [place] are ok BM + Pain reported but is controlled 09/11/21: Patient doing well Wrapping stump with LISSY wraps Pain controlled BM+ 09/10/2021: Patient doing well Pain medication maintained Remains max assist Accu-Cheks are good Hemoglobin 8.3 Creatinine 1.69 Bowels are moving Participating in all therapy Review of Systems General: Fatigue, Malaise Musculoskeletal: leg pain Objective Exam Vital Signs Vital Signs Date Time Temp Pulse Resp B/P (MAP) Pulse Ox O2 Delivery O2 Flow Rate FiO2 09/13/21 21:00 Room Air 09/13/21 20:00 36.1 73 20 139/77 (97) 98 Capillary Refill : General Appearance: No Apparent Distress, WD/WN, Chronically ill, Obese HEENT: PERRL/EOMI, Normal ENT Inspection, Pharynx Normal Neck: Full Range of Motion, Normal Inspection, Non Tender, Supple, Carotid Bruit Respiratory: Chest Non Tender, Lungs Clear, Normal Breath Sounds, No Accessory Muscle Use, No Respiratory Distress Cardiovascular: Regular Rate, Rhythm, No Edema, No Gallop, No JVD, No Murmur, Normal Peripheral Pulses Gastrointestinal: Normal Bowel Sounds, No Organomegaly, No Pulsatile Mass, Non Tender, Soft Back: Normal Inspection, No CVA Tenderness, No Vertebral Tenderness Extremity: Normal Capillary Refill, Normal Inspection, Normal Range of Motion, Non Tender, No Calf Tenderness, Other (right AKA haile in place, left BKA) Neurologic/Psychiatric: Alert, Oriented x3, No Motor/Sensory Deficits, Normal Mood/Affect Skin: Normal Color, Warm/Dry Lymphatic: No Adenopathy Results/Procedures Lab Patient resulted labs reviewed. FIM Transfers Therapy Code Descriptions/Definitions Functional [place] Measure: 0=Not Assessed/NA 4=Minimal Assistance 1=Total Assistance 5=Supervision or Setup 2=Maximal Assistance 6=Modified [place] 3=Moderate Assistance 7=Complete IndependenceSCALE: Activities may be completed with or without assistive devices. 9-R[place]ie[place]by-rdysrjl completes the activity by him/herself with no assistance from a helper. 5-Set-up or Clean-up Assistance-helper sets up or cleans up; patient completes activity. [place] assists only prior to or following the activity. 4-Supervision or Touching Assistance-helper provides verbal cues and/or touching/steadying and/or contact guard assistance as patient completes activity. Assistance may be provided throughout the activity or intermittently. 3-Partial/Moderate Assistance-helper does LESS THAN HALF the effort. [place] lift s, holds or supports trunk or limbs, but provides less than half the effort. 2-Substantial/Maximal Assistance-helper does MORE THAN HALF the effort. [place] lifts or holds trunk or limbs and provides more than half the effort. 8-Spjcvkcad-ssuxdn does ALL the effort. Patient does none of the effort to complete the activity. Or, the assistance of 2 or more helpers is required for the patient to complete the activity. If activity was not attempted, code reason: 7-Patient Refused. 9-Not Applicable-not attempted and the patient did not perform the activity before the current illness, exacerbation or injury. 10-Not Attempted due to Environmental Limitations-(lack of equipment, weather restraints, etc.). 88-Not Attempted due to Medical Conditions or Safety Concerns. Roll Left to Right (QC): 4 Sit to Lying (QC): 4 Sit to Stand (QC): 88 Chair/Utx-gg-Muhlg Xfer(QC): 3 Car Transfer (QC): 88 Gait Training Walk 10 feet (QC): 88 Walk 50 ft with 2 Turns(QC): 88 Walk 150 ft (QC): 88 Walking 10ft/uneven surface-QC: 88 Wheelchair Training Does the Pt Use a Wheelchair?: Yes Wheel 50 ft with 2 turns (QC): 4 Wheel 150 ft (QC): 4 Type of Wheelchair: Manual Stair Training 1 Step (curb) (QC): 88 4 Steps (QC): 88 12 Steps (QC): 88 Balance Picking up an Object (QC): 6 ADL-Treatment Eating (QC): 6 (Pt independent with meal) Oral Hygiene (QC): 6 (Independent sitting at sink) Bathing Location: L Arm, R Arm, L Upper Leg, R Upper Leg, L Lower Leg (including foot) (BKA), R Lower Leg (including foot) (AKA), Chest, Abdomen, Buttocks, Perineal Area Shower/Bathe Self (QC): 4 (Sitting on shower shower bench, pt able to bathe self with SBA for safety after set up.) Upper Body Dressing (QC): 5 (pt able to complete with supplies gathered.) Lower Body Dressing (QC): 3 (In supine assist to thread B stumps into pants then pt able to hike over hips rolling side to side.) On/Off Footwear (QC): 88 Toileting Hygiene (QC): 7 Assessment/Plan Assessment and Plan Assess & Plan/Chief Complaint Assessment: s/p right AKA due to osteomyelitis Remote hx of left BKA DM HTN HLP Recent psychosis CKD Smoker Obesity Situational depression seeking counseling Plan: Monitor closely DM management Pain control IRF protocol 09/10/2021: Continue aggressive therapy Monitor blood sugars 09/11/21: DC accuchecks Monitor pain 09/12/21: Monitor closely Pain controlled 09/13/21: Needs counseling Monitor labs Pain control (1) S/P AKA (above knee amputation) (2) Diabetes (3) History of left below knee amputation (4) Psychosis (5) CKD (chronic kidney disease) AFTAB BENZ DO Sep 13, 2021 07:44
[2021-09-13] MEDS: SODIUM BICARBONATE 650 MG TABLET (NON-FORMULARY) PO SCH ×3 (09:03→21:00)
[2021-09-13] MEDS: SENNA W/DOCUSATE (SENOKOT S) TABLET PO SCH ×2 (09:03→21:00)
[2021-09-13] MEDS: DOCUSATE SODIUM 100 MG (COLACE) CAP PO SCH ×2 (09:03→21:01)
[2021-09-13] MEDS: FERROUS SULF 325 MG (IRON) TAB PO SCH (09:03)
[2021-09-13] MEDS: AtorvaSTATin TABLET 10 MG TABLET PO SCH (09:03)
[2021-09-13] MEDS: amLODIPine 10 MG (NORVASC) TAB PO SCH (09:03)
[2021-09-13] MEDS: CLOPIDOGREL 75 MG (PLAVIX) TABLET PO SCH (09:03)
[2021-09-13] MEDS: ASPIRIN E.C. 81 MG (ECOTRIN) TAB PO SCH (09:03)
[2021-09-13] MEDS: polyethylene glycoL POWDER 17 GM (MIRALAX) PACK PO SCH ×2 (09:08→22:48)
[2021-09-13 20:00] VITALS: BP 139/77
[2021-09-13] MEDS: MELATONIN 3 MG TABLET PO PRN (21:00)
[2021-09-13] MEDS: HYDROcodone/APAP 7.5 MG/325 MG (LORTAB, LORCET PLUS) TABLET PO PRN (21:01)
[2021-09-14 05:50] LABS: BASOPHILS # (AUTO) 0.1 10^3/uL (0.0-0.1); BASOPHILS % (AUTO) 1 % (0-10); EOSINOPHILS # (AUTO) 0.5 10^3/uL (0.0-0.3); EOSINOPHILS % (AUTO) 5 % (0-10); HEMATOCRIT 29 % (40-54); HEMOGLOBIN 8.6 g/dL (13.3-17.7); LYMPHOCYTES # (AUTO) 2.1 10^3/uL (1.0-4.0); LYMPHOCYTES % (AUTO) 23 % (12-44); MEAN CORPUSCULAR HEMOGLOBIN 30 pg (25-34); MEAN CORPUSCULAR HGB CONC 30 g/dL (32-36); MEAN CORPUSCULAR VOLUME 99 fL (80-99); MEAN PLATELET VOLUME 12.2 fL (9.0-12.2); MONOCYTES % (AUTO) 10 % (0-12); NEUTROPHILS # (AUTO) 5.6 10^3/uL (1.8-7.8); NEUTROPHILS % (AUTO) 60 % (42-75); PLATELET COUNT 343 10^3/uL (130-400); WHITE BLOOD COUNT 9.4 10^3/uL (4.3-11.0)
[2021-09-14 06:05] LABS: ALBUMIN 2.7 GM/DL (3.2-4.5); POTASSIUM 5.6 MMOL/L (3.6-5.0)
[2021-09-14 06:06] LABS: CALCIUM 9.6 MG/DL (8.5-10.1)
[2021-09-14 06:07] LABS: TOTAL PROTEIN 7.2 GM/DL (6.4-8.2)
[2021-09-14 06:09] LABS: BILIRUBIN,TOTAL 0.3 MG/DL (0.1-1.0)
[2021-09-14 06:11] LABS: CREATININE SERUM 2.04 MG/DL (0.60-1.30)
[2021-09-14 06:24] VITALS: BP 126/75
--- NOTE | 2021-09-14 06:43 | PM&R Progress Note ---
Subjective HPI/CC On Admission Date Seen by Provider: Sep 14, 2021 Time Seen by Provider: 09:00 Subjective/Events-last exam 09/14/2021: Pt doing well Creatinine 2 Potassium 5.6- no medication can retain Potassium that I reviewed Hgb 8.6 Overall very flat affect and depressed 09/13/21: Patient doing well Tearful at times at bedside Behavioral consult will be performed [employer] will be pursued by 09/12/21: Patient doing well [place] are ok BM + Pain reported but is controlled 09/11/21: Patient doing well Wrapping stump with LISSY wraps Pain controlled BM+ 09/10/2021: Patient doing well Pain medication maintained Remains max assist Accu-Cheks are good Hemoglobin 8.3 Creatinine 1.69 Bowels are moving Participating in all therapy Review of Systems General: Fatigue, Malaise Musculoskeletal: leg pain Objective Exam Vital Signs Vital Signs Date Time Temp Pulse Resp B/P (MAP) Pulse Ox O2 Delivery O2 Flow Rate FiO2 09/14/21 20:09 Room Air 09/14/21 20:00 37.0 73 18 157/88 (111) 98 Capillary Refill : General Appearance: No Apparent Distress, WD/WN, Chronically ill, Obese HEENT: PERRL/EOMI, Normal ENT Inspection, Pharynx Normal Neck: Full Range of Motion, Normal Inspection, Non Tender, Supple, Carotid Bruit Respiratory: Chest Non Tender, Lungs Clear, Normal Breath Sounds, No Accessory Muscle Use, No Respiratory Distress Cardiovascular: Regular Rate, Rhythm, No Edema, No Gallop, No JVD, No Murmur, Normal Peripheral Pulses Gastrointestinal: Normal Bowel Sounds, No Organomegaly, No Pulsatile Mass, Non Tender, Soft Back: Normal Inspection, No CVA Tenderness, No Vertebral Tenderness Extremity: Normal Capillary Refill, Normal Inspection, Normal Range of Motion, Non Tender, No Calf Tenderness, Other (right AKA haile in place, left BKA) Neurologic/Psychiatric: Alert, Oriented x3, No Motor/Sensory Deficits, Normal Mood/Affect Skin: Normal Color, Warm/Dry Lymphatic: No Adenopathy Results/Procedures Lab Laboratory Tests 09/14/21 05:40 Patient resulted labs reviewed. FIM Transfers Therapy Code Descriptions/Definitions Functional [place] Measure: 0=Not Assessed/NA 4=Minimal Assistance 1=Total Assistance 5=Supervision or Setup 2=Maximal Assistance 6=Modified [place] 3=Moderate Assistance 7=Complete IndependenceSCALE: Activities may be completed with or without assistive devices. 4-Dmxatlyywq-wjsagxx completes the activity by him/herself with no assistance from a helper. 5-Set-up or Clean-up Assistance-helper sets up or cleans up; patient completes activity. [place] assists only prior to or following the activity. 4-Supervision or Touching Assistance-helper provides verbal cues and/or touching/steadying and/or contact guard assistance as patient completes activity. Assistance may be provided throughout the activity or intermittently. 3-Partial/Moderate Assistance-helper does LESS THAN HALF the effort. [place] lifts, holds or supports trunk or limbs, but provides less than half the effort. 2-Substantial/Maximal Assistance-helper does MORE THAN HALF the effort. [place] lifts or holds trunk or limbs and provides more than half the effort. 2-Fnumbwofp-vbyrtw does ALL the effort. Patient does none of the effort to complete the activity. Or, the assistance of 2 or more helpers is required for the patient to complete the activity. If activity was not attempted, code reason: 7-Patient Refused. 9-Not Applicable-not attempted and the patient did not perform the activity before the current illness, exacerbation or injury. 10-Not Attempted due to Environmental Limitations-(lack of equipment, weather restraints, etc.). 88-Not Attempted due to Medical Conditions or Safety Concerns. Roll Left to Right (QC): 4 Sit to Lying (QC): 4 Sit to Stand (QC): 88 Chair/Tnh-ef-Slivo Xfer(QC): 3 Car Transfer (QC): 88 Gait Training Walk 10 feet (QC): 88 Walk 50 ft with 2 Turns(QC): 88 Walk 150 ft (QC): 88 Walking 10ft/uneven surface-QC: 88 Wheelchair Training Does the Pt Use a Wheelchair?: Yes Wheel 50 ft with 2 turns (QC): 4 Wheel 150 ft (QC): 4 Type of Wheelchair: Manual Stair Training 1 Step (curb) (QC): 88 4 Steps (QC): 88 12 Steps (QC): 88 Balance Picking up an Object (QC): 6 ADL-Treatment Eating (QC): 6 (Pt independent with meal) Oral Hygiene (QC): 6 (Independent sitting at sink) Bathing Location: L Arm, R Arm, L Upper Leg, R Upper Leg, L Lower Leg (including foot) (BKA), R Lower Leg (including foot) (AKA), Chest, Abdomen, Buttocks, Perineal Area Shower/Bathe Self (QC): 4 (Sitting on shower shower bench, pt able to bathe self with SBA for safety after set up.) Upper Body Dressing (QC): 5 (pt able to complete with supplies gathered.) Lower Body Dressing (QC): 3 (In supine assist to thread B stumps into pants the n pt able to hike over hips rolling side to side.) On/Off Footwear (QC): 88 Toileting Hygiene (QC): 7 Assessment/Plan Assessment and Plan Assess & Plan/Chief Complaint Assessment: s/p right AKA due to osteomyelitis Remote hx of left BKA DM HTN HLP Recent psychosis CKD Smoker Obesity Situational depression seeking counseling Plan: Monitor closely DM management Pain control IRF protocol 09/10/2021: Continue aggressive therapy Monitor blood sugars 09/11/21: DC accuchecks Monitor pain 09/12/21: Monitor closely Pain controlled 09/13/21: Needs counseling Monitor labs Pain control 09/14/2021: Depression management (1) S/P AKA (above knee amputation) (2) Diabetes (3) History of left below knee amputation (4) Psychosis (5) CKD (chronic kidney disease) AFTAB BENZ DO Sep 14, 2021 06:43
[2021-09-14 07:32] VITALS: BP 129/62
[2021-09-14] MEDS: amLODIPine 10 MG (NORVASC) TAB PO SCH (08:25)
[2021-09-14] MEDS: DOCUSATE SODIUM 100 MG (COLACE) CAP PO SCH ×2 (08:25→20:02)
[2021-09-14] MEDS: SENNA W/DOCUSATE (SENOKOT S) TABLET PO SCH ×2 (08:25→20:02)
[2021-09-14] MEDS: ASPIRIN E.C. 81 MG (ECOTRIN) TAB PO SCH (08:25)
[2021-09-14] MEDS: SODIUM BICARBONATE 650 MG TABLET (NON-FORMULARY) PO SCH ×3 (08:25→20:02)
[2021-09-14] MEDS: FERROUS SULF 325 MG (IRON) TAB PO SCH (08:25)
[2021-09-14] MEDS: CLOPIDOGREL 75 MG (PLAVIX) TABLET PO SCH (08:25)
[2021-09-14] MEDS: HYDROcodone/APAP 7.5 MG/325 MG (LORTAB, LORCET PLUS) TABLET PO PRN ×3 (08:55→21:25)
[2021-09-14] MEDS: polyethylene glycoL POWDER 17 GM (MIRALAX) PACK PO SCH ×2 (09:00→20:03)
[2021-09-14] MEDS: AtorvaSTATin TABLET 10 MG TABLET PO SCH (11:35)
--- NOTE | 2021-09-14 12:12 | Occupational Ther Daily Note ---
OT Current Status-Daily Note Subjective Pt sitting in w/c, alert. No c/o pain. Pt agrees to therapy. Mental Status/Objective Patient Orientation: Person, Place, Time, Situation Attachments: Other-See Comments (L AKA orthosis) ADL-Treatment Pt refuses shower, engages in oral care/grooming at sink while seated in w/c. Pt propels to therapy room SBA. Pt completed arm bike for 8 min duration at 15 watt s resistance to increase B UE strength and activity tolerance. PT/OT cotreat with pt ([id number]), 2 clinicians required for skilled treatment to decrease fall risk, increase functional mobility and activity tolerance. PT focused on transfers, standing balance, and w/c mobility while OT focused on ADLs, functional mobility, and B UE strength. Pt max A x2 for sit<->stand x3 in parall el bars with L prosthesis for support with mod assist x2 in standing. Pt engaged in functional mobility task by propelling w/c to elevators, going to 1st floor, propelling down and up ramp. Pt propelled back to room, reported minor pain in wrist. After session, pt sitting in w/c with call light/phone within reach. All needs met in room. Therapy Code Descriptions/Definitions Functional [place] Measure: 0=Not Assessed/NA 4=Minimal Assistance 1=Total Assistance 5=Supervision or Setup 2=Maximal Assistance 6=Modified [place] 3=Moderate Assistance 7=Complete IndependenceSCALE: Activities may be completed with or without assistive devices. 5-Uquztvtfob-eelifnh completes the activity by him/herself with no assistance from a helper. 5-Set-up or Clean-up Assistance-helper sets up or cleans up; patient completes activity. [place] assists only prior to or following the activity. 4-Supervision or Touching Assistance-helper provides verbal cues and/or touching/steadying and/or contact guard assistance as patient completes activity. Assistance may be provided throughout the activity or intermittently. 3-Partial/Moderate Assistance-helper does LESS THAN HALF the effort. [place] lifts, holds or supports trunk or limbs, but provides less than half the effort. 2-Substantial/Maximal Assistance-helper does MORE THAN HALF the effort. [place] lifts or holds trunk or limbs and provides more than half the effort. 6-Faxcalbsn-iwzpcc does ALL the effort. Patient does none of the effort to complete the activity. Or, the assistance of 2 or more helpers is required for the patient to complete the activity. If activity was not attempted, code reason: 7-Patient Refused. 9-Not Applicable-not attempted and the patient did not perform the activity before the current illness, exacerbation or injury. 10-Not Attempted due to Environmental Limitations-(lack of equipment, weather restraints, etc.). 88-Not Attempted due to Medical Conditions or Safety Concerns. Oral Hygiene (QC): 6 OT Short Term Goals Short Term Goals Time Frame: Sep 23, 2021 Toileting hygiene: 3 Shower/bathe self: 3 Lower body dressin Putting on/taking off footwear: 3 OT Forest Economics Professor Goals Mcfp Goals Time Frame: Oct 09, 2021 Eating (QC): 6 Oral Hygiene (QC): 6 Toileting Hygiene (QC): 4 Shower/Bathe Self (QC): 4 Upper Body Dressing (QC): 6 Lower Body Dressing (QC): 4 On/Off Footwear (QC): 5 (LLE prosthesis only) Additional Goals: 1-Demonstrate ADL Tasks, 2-Verbalize Understanding, 3- ImproveStrength/[place] 1=Demonstrate adherence to instructed precautions during ADL tasks. 2=Patient will verbalize/demonstrate understanding of assistive devices/modifications for ADL. 3=Patient will improve strength/tolerance for activity to enable patient to perform ADL's. OT Education/Plan Problem List/Assessment Assessment: Decreased UE Strength, Dependent Transfers, Impaired Coordination, Impaired Funct Balance, Impaired Self-Care Skills Discharge Recommendations Plan/Recommendations: Continue POC Treatment Plan/Plan of Care Patient would benefit from OT for education, treatment and training to promote independence in ADL's, mobility, safety and/or upper extremity function for ADL's. Plan of Care: ADL Retraining, Functional Mobility, Group Exercise/Act as Ind, UE Funct Exercise/Act Treatment Duration: Oct 09, 2021 Frequency: At least 5 of 7 days/Wk (IRF) Estimated Hrs Per Day: 1.5 hours per day Rehab Potential: Fair Time/GCodes Start Time: 10:30 Stop Time: 12:00 Total Time Billed (hr/min): 90 Billed Treatment Time 1 Visit- ADL (15 min) EX (8 min) FA 4 (67 min) co-treat with PT [id number], individual [id number] KUNCE,RAMIN OTA Sep 14, 2021 12:12
--- NOTE | 2021-09-14 13:13 | Physical Therapy Daily Note ---
PT Daily Note-Current Subjective Patient in therapy gym pre tx, agrees to PT, has no complaints of pain at rest. Will be co-treating with OT due to poor patient mobility, strength, endurance, poor balance, coordinate UE and LE during activity, safety and reduce risk of falls. Appearance Patient in WC at bedside post tx with nurse call, phone, tray, all needs met. Mental Status Patient Orientation: Person, Place, Situation Transfers SCALE: Activities may be completed with or without assistive devices. 6-Mdmfwxctbg-nugpgbd completes the activity by him/herself with no assistance from a helper. 5-Set-up or Clean-up Assistance-helper sets up or cleans up; patient completes activity. [place] assists only prior to or following the activity. 4-Supervision or Touching Assistance-helper provides verbal cues and/or touching/steadying and/or contact guard assistance as patient completes activi ty. Assistance may be provided throughout the activity or intermittently. 3-Partial/Moderate Assistance-helper does LESS THAN HALF the effort. [place] lifts, holds or supports trunk or limbs, but provides less than half the effort. 2-Substantial/Maximal Assistance-helper does MORE THAN HALF the effort. [place] lifts or holds trunk or limbs and provides more than half the effort. 2-Qkugfpmqa-jmfche does ALL the effort. Patient does none of the effort to complete the activity. Or, the assistance of 2 or more helpers is required for the patient to complete the activity. If activity was not attempted, code reason: 7-Patient Refused. 9-Not Applicable-not attempted and the patient did not perform the activity before the current illness, exacerbation or injury. 10-Not Attempted due to Environmental Limitations-(lack of equipment, weather restraints, etc.). 88-Not Attempted due to Medical Conditions or Safety Concerns. Sit to Stand (QC): 1 Chair/Jbn-pe-Nrdri Xfer(QC): 3 Patient performs a sliding board transfer to therapy table with his prosthetic leg on with mod assist and then back to his WC. Patient stands in parallel bars with assist of 2 for about 20 sec each time. Patient then propels WC downstairs and practices going down/up ramp, goes up backward. Wheelchair Training Does the Pt Use a Wheelchair?: Yes Wheel 50 ft with 2 turns (QC): 4 Wheel 150 ft (QC): 4 Type of Wheelchair: Manual 200'x2, very slow Treatments PT performs transfers, standing, WC mobility, ramp training, OT performed UE positioning and safety during activity, assisted with standing Assessment Current Status: Fair Progress patient very fatigued after tx PT Short Term Goals Short Term Goals Time Frame: Sep 16, 2021 Roll Left & Right: 6 Sit to lyin Lying to sitting on side of be: 4 Sit to stand: 3 Chair/kte-if-oapcj transfer: 4 PT Group Home Goals Group Home Goals PT Group Home Goals Time Frame: Sep 30, 2021 Roll Left & Right (QC): 6 Sit to Lying (QC): 6 Lying-Sitting on Side/Bed(QC): 6 Sit to Stand (QC): 4 Chair/Bry-ju-Pkgoc Xfer(QC): 4 Toilet Transfer (QC): 4 Car Transfer (QC): 3 Does the Patient Walk: No and Walking Goal NOT indicated Walk 10 feet (QC): 88 Walk 50ft with 2 Turns (QC): 88 Walk 150 ft (QC): 88 Walking 10ft on Uneven Surface: 88 1 Step (curb) (QC): 88 4 Steps (QC): 88 12 Steps (QC): 88 Picking up an Object (QC): 6 Wheel 50 feet with 2 turns (QC: 6 Wheel 150 feet: 6 PT Plan Problem List Problem List: Activity Tolerance, Functional Strength, Safety, Balance, Gait, Transfer, Bed Mobility, ROM Treatment/Plan Treatment Plan: Continue Plan of Care Treatment Plan: Bed Mobility, Education, Functional Activity [place], Functional Strength, Group Therapy, Gait, Safety, Therapeutic Exercise, Transfers Treatment Duration: Sep 30, 2021 Frequency: At least 5 of 7 days/Wk (IRF) Estimated Hrs Per Day: 1.5 hours per day Patient and/or Family Agrees t: Yes Safety Risks/Education Patient Education: Transfer Techniques, Correct Positioning, W/C Management, Safety Issues Teaching Recipient: Patient Teaching Methods: Demonstration, Discussion Response to Teaching: Reinforcement Needed Time/GCodes Time In: 1100 Time Out: 1200 Total Billed Treatment Time: 60 Total Billed Treatment 1 visit FA 60' CORIGUILHERMENEFTALY PT Sep 14, 2021 13:13
--- NOTE | 2021-09-14 13:39 | Physical Therapy Daily Note ---
PT Daily Note-Current Subjective Patient in WC pre tx, agrees to PT, has 7/10 pain in right residual limb. Appearance Patient in WC post tx at bedside with nurse call, phone, tray, all needs met. Mental Status Patient Orientation: Person, Place, Situation Transfers SCALE: Activities may be completed with or without assistive devices. 0-Qlnhxowpmh-wlhhqli completes the activity by him/herself with no assistance from a helper. 5-Set-up or Clean-up Assistance-helper sets up or cleans up; patient completes activity. [place] assists only prior to or following the activity. 4-Supervision or Touching Assistance-helper provides verbal cues and/or touching/steadying and/or contact guard assistance as patient completes activity. Assistance may be provided throughout the activity or intermittently. 3-Partial/Moderate Assistance-helper does LESS THAN HALF the effort. [place] lifts, holds or supports trunk or limbs, but provides less than half the effort. 2-Substantial/Maximal Assistance-helper does MORE THAN HALF the effort. [place] lifts or holds trunk or limbs and provides more than half the effort. 5-Eqjojacsk-hifiqs does ALL the effort. Patient does none of the effort to complete the activity. Or, the assistance of 2 or more helpers is required for the patient to complete the activity. If activity was not attempted, code reason: 7-Patient Refused. 9-Not Applicable-not attempted and the patient did not perform the activity before the current illness, exacerbation or injury. 10-Not Attempted due to Environmental Limitations-(lack of equipment, weather restraints, etc.). 88-Not Attempted due to Medical Conditions or Safety Concerns. Attempted sliding board transfer to therapy table, patient got part way but had too much pain in right residual limb to continue. Patient went to parallel bars and stood x2 with max assist for about 10 sec each time (using prosthetic leg). Wheelchair Training Does the Pt Use a Wheelchair?: Yes Wheel 50 ft with 2 turns (QC): 4 Type of Wheelchair: Manual 120'x2 Treatments transfers (attempted), standing, mobility Assessment Current Status: Poor Progress more pain, patient very fatigued this afternoon, transfers were harder PT Short Term Goals Short Term Goals Time Frame: Sep 16, 2021 Roll Left & Right: 6 Sit to lyin Lying to sitting on side of be: 4 Sit to stand: 3 Chair/ncl-ua-wxulx transfer: 4 PT Freelance Writer Goals [facility] Goals PT [facility] Goals Time Frame: Sep 30, 2021 Roll Left & Right (QC): 6 Sit to Lying (QC): 6 Lying-Sitting on Side/Bed(QC): 6 Sit to Stand (QC): 4 Chair/Bno-lc-Ophmv Xfer(QC): 4 Toilet Transfer (QC): 4 Car Transfer (QC): 3 Does the Patient Walk: No and Walking Goal NOT indicated Walk 10 feet (QC): 88 Walk 50ft with 2 Turns (QC): 88 Walk 150 ft (QC): 88 Walking 10ft on Uneven Surface: 88 1 Step (curb) (QC): 88 4 Steps (QC): 88 12 Steps (QC): 88 Picking up an Object (QC): 6 Wheel 50 feet with 2 turns (QC: 6 Wheel 150 feet: 6 PT Plan Problem List Problem List: Activity Tolerance, Functional Strength, Safety, Balance, Gait, Transfer, Bed Mobility, ROM Treatment/Plan Treatment Plan: Continue Plan of Care Treatment Plan: Bed Mobility, Education, Functional Activity [place]isa, Functional Strength, Group Therapy, Gait, Safety, Therapeutic Exercise, Transfers Treatment Duration: Sep 30, 2021 Frequency: At least 5 of 7 days/Wk (IRF) Estimated Hrs Per Day: 1.5 hours per day Patient and/or Family Agrees t: Yes Safety Risks/Education Patient Education: Transfer Techniques, Correct Positioning, W/C Management, S afety Issues Teaching Recipient: Patient Teaching Methods: Demonstration, Discussion Response to Teaching: Reinforcement Needed Time/GCodes Time In: 1300 Time Out: 1330 Total Billed Treatment Time: 30 Total Billed Treatment 1 visit FA 30' NEFTALY MITCHELL PT Sep 14, 2021 13:39
[2021-09-14] MEDS ORDERED: PANT40TA52 PO (14:49)
[2021-09-14] MEDS ORDERED: FOLI1TAB33 PO (14:49)
[2021-09-14] MEDS ORDERED: INSU100I32 SC (14:49)
[2021-09-14] MEDS ORDERED: SUCR1TAB PO (14:49)
[2021-09-14] MEDS ORDERED: AMLO-250 PO (14:49)
[2021-09-14] MEDS ORDERED: CIPR750T4 PO (14:51)
[2021-09-14] MEDS ORDERED: LACT1CAP39 PO (14:51)
[2021-09-14 20:00] VITALS: BP 157/88
[2021-09-14] MEDS: MELATONIN 3 MG TABLET PO PRN (20:05)
[2021-09-15 07:29] VITALS: BP 161/72
--- NOTE | 2021-09-15 08:51 | PM&R Progress Note ---
Subjective HPI/CC On Admission Date Seen by Provider: Sep 15, 2021 Time Seen by Provider: 08:50 Subjective/Events-last exam 09/15/2021: Pt still max assist but participating in therapy Behavioral health consult ordered Overall very flat affect 09/14/2021: Pt doing well Creatinine 2 Potassium 5.6- no medication can retain Potassium that I reviewed Hgb 8.6 Overall very flat affect and depressed 09/13/21: Patient doing well Tearful at times at bedside Behavioral consult will be performed [employer] will be pursued by 09/12/21: Patient doing well [place] are ok BM + Pain reported but is controlled 09/11/21: Patient doing well Wrapping stump with LISSY wraps Pain controlled BM+ 09/10/2021: Patient doing well Pain medication maintained Remains max assist Accu-Cheks are good Hemoglobin 8.3 Creatinine 1.69 Bowels are moving Participating in all therapy Review of Systems General: Fatigue, Malaise Musculoskeletal: leg pain Objective Exam Vital Signs Vital Signs Date Time Temp Pulse Resp B/P (MAP) Pulse Ox O2 Delivery O2 Flow Rate FiO2 09/15/21 20:05 36.6 81 20 132/64 (86) 98 Room Air Capillary Refill : General Appearance: No Apparent Distress, WD/WN, Chronically ill, Obese HEENT: PERRL/EOMI, Normal ENT Inspection, Pharynx Normal Neck: Full Range of Motion, Normal Inspection, Non Tender, Supple, Carotid Bruit Respiratory: Chest Non Tender, Lungs Clear, Normal Breath Sounds, No Accessory Muscle Use, No Respiratory Distress Cardiovascular: Regular Rate, Rhythm, No Edema, No Gallop, No JVD, No Murmur, Normal Peripheral Pulses Gastrointestinal: Normal Bowel Sounds, No Organomegaly, No Pulsatile Mass, Non Tender, Soft Back: Normal Inspection, No CVA Tenderness, No Vertebral Tenderness Extremity: Normal Capillary Refill, Normal Inspection, Normal Range of Motion, Non Tender, No Calf Tenderness, Other (right AKA haile in place, left BKA) Neurologic/Psychiatric: Alert, Oriented x3, No Motor/Sensory Deficits, Normal Mood/Affect Skin: Normal Color, Warm/Dry Lymphatic: No Adenopathy Results/Procedures Lab Patient resulted labs reviewed. FIM Transfers Therapy Code Descriptions/Definitions Functional [place] Measure: 0=Not Assessed/NA 4=Minimal Assistance 1=Total Assistance 5=Supervision or Setup 2=Maximal Assistance 6=Modified [place] 3=Moderate Assistance 7=Complete IndependenceSCALE: Activities may be completed with or without assistive devices. 6-Ifpwcozozj-gajzntt completes the activity by him/herself with no assistance from a helper. 5-Set-up or Clean-up Assistance-helper sets up or cleans up; patient completes a ctivity. [place] assists only prior to or following the activity. 4-Supervision or Touching Assistance-helper provides verbal cues and/or touching/steadying and/or contact guard assistance as patient completes activity. Assistance may be provided throughout the activity or intermittently. 3-Partial/Moderate Assistance-helper does LESS THAN HALF the effort. [place] lifts, holds or supports trunk or limbs, but provides less than half the effort. 2-Substantial/Maximal Assistance-helper does MORE THAN HALF the effort. [place] lifts or holds trunk or limbs and provides more than half the effort. 0-Fgnnapnus-crqtxv does ALL the effort. Patient does none of the effort to complete the activity. Or, the assistance of 2 or more helpers is required for the patient to complete the activity. If activity was not attempted, code reason: 7-Patient Refused. 9-Not Applicable-not attempted and the patient did not perform the activity before the current illness, exacerbation or injury. 10-Not Attempted due to Environmental Limitations-(lack of equipment, weather restraints, etc.). 88-Not Attempted due to Medical Conditions or Safety Concerns. Roll Left to Right (QC): 4 Sit to Lying (QC): 4 Sit to Stand (QC): 1 Chair/Zml-ie-Gtnyv Xfer(QC): 3 Car Transfer (QC): 88 Gait Training Walk 10 feet (QC): 88 Walk 50 ft with 2 Turns(QC): 88 Walk 150 ft (QC): 88 Walking 10ft/uneven surface-QC: 88 Wheelchair Training Does the Pt Use a Wheelchair?: Yes Wheel 50 ft with 2 turns (QC): 4 Wheel 150 ft (QC): 4 Type of Wheelchair: Manual Stair Training 1 Step (curb) (QC): 88 4 Steps (QC): 88 12 Steps (QC): 88 Balance Picking up an Object (QC): 6 ADL-Treatment Eating (QC): 6 (Pt independent with meal) Oral Hygiene (QC): 6 Bathing Location: L Arm, R Arm, L Upper Leg, R Upper Leg, L Lower Leg (includi ng foot) (BKA), R Lower Leg (including foot) (AKA), Chest, Abdomen, Buttocks, Perineal Area Shower/Bathe Self (QC): 4 (Sitting on shower shower bench, pt able to bathe self with SBA for safety after set up.) Upper Body Dressing (QC): 5 (pt able to complete with supplies gathered.) Lower Body Dressing (QC): 3 (In supine assist to thread B stumps into pants then pt able to hike over hips rolling side to side.) On/Off Footwear (QC): 88 Toileting Hygiene (QC): 7 Assessment/Plan Assessment and Plan Assess & Plan/Chief Complaint Assessment: s/p right AKA due to osteomyelitis Remote hx of left BKA DM HTN HLP Recent psychosis CKD Smoker Obesity Situational depression seeking counseling Plan: Monitor closely DM management Pain control IRF protocol 09/10/2021: Continue aggressive therapy Monitor blood sugars 09/11/21: DC accuchecks Monitor pain 09/12/21: Monitor closely Pain controlled 09/13/21: Needs counseling Monitor labs Pain control 09/14/2021: Depression management 09/15/2021: Aggressive therapy Behavioral health consult (1) S/P AKA (above knee amputation) (2) Diabetes (3) History of left below knee amputation (4) Psychosis (5) CKD (chronic kidney disease) AFTAB BENZ DO Sep 15, 2021 08:51
[2021-09-15] MEDS: AtorvaSTATin TABLET 10 MG TABLET PO SCH (08:57)
[2021-09-15] MEDS: DOCUSATE SODIUM 100 MG (COLACE) CAP PO SCH ×2 (08:57→19:40)
[2021-09-15] MEDS: CLOPIDOGREL 75 MG (PLAVIX) TABLET PO SCH (08:57)
[2021-09-15] MEDS: FERROUS SULF 325 MG (IRON) TAB PO SCH (08:57)
[2021-09-15] MEDS: amLODIPine 10 MG (NORVASC) TAB PO SCH (08:57)
[2021-09-15] MEDS: SODIUM BICARBONATE 650 MG TABLET (NON-FORMULARY) PO SCH ×3 (08:57→19:41)
[2021-09-15] MEDS: SENNA W/DOCUSATE (SENOKOT S) TABLET PO SCH ×2 (08:58→19:40)
[2021-09-15] MEDS: ASPIRIN E.C. 81 MG (ECOTRIN) TAB PO SCH (08:58)
[2021-09-15] MEDS: polyethylene glycoL POWDER 17 GM (MIRALAX) PACK PO SCH ×2 (10:49→19:40)
--- NOTE | 2021-09-15 12:12 | Physical Therapy Daily Note ---
PT Daily Note-Current Subjective Pt in shower with OT upon arrival and agrees to co-treat. Use of 2 skilled clinicians d/t pt poor mobility, weakness, transfers, and safety. Mental Status Patient Orientation: Person, Place, Time, Situation Transfers SCALE: Activities may be completed with or without assistive devices. 1-Uubcrafyly-quonzix completes the activity by him/herself with no assistance from a helper. 5-Set-up or Clean-up Assistance-helper sets up or cleans up; patient completes activity. [place] assists only prior to or following the activity. 4-Supervision or Touching Assistance-helper provides verbal cues and/or touching/steadying and/or contact guard assistance as patient completes activity. Assistance may be provided throughout the activity or intermittently. 3-Partial/Moderate Assistance-helper does LESS THAN HALF the effort. [place] lifts, holds or supports trunk or limbs, but provides less than half the effort. 2-Substantial/Maximal Assistance-helper does MORE THAN HALF the effort. [place] lifts or holds trunk or limbs and provides more than half the effort. 8-Xtrsdurdc-ugjcdq does ALL the effort. Patient does none of the effort to com plete the activity. Or, the assistance of 2 or more helpers is required for the patient to complete the activity. If activity was not attempted, code reason: 7-Patient Refused. 9-Not Applicable-not attempted and the patient did not perform the activity before the current illness, exacerbation or injury. 10-Not Attempted due to Environmental Limitations-(lack of equipment, weather restraints, etc.). 88-Not Attempted due to Medical Conditions or Safety Concerns. Roll Left & Right (QC): 2 Chair/Urw-jn-Vmpqb Xfer(QC): 2 Pt transfers with SB ModA x2 for safety Wheelchair Training Does the Pt Use a Wheelchair?: Yes Wheel 50 ft with 2 turns (QC): 5 Wheel 150 ft (QC): 5 Type of Wheelchair: Manual Treatments 1115-12 Co-treat: OT focused on bathing, dressing, and ADLs. PT focused on transfers, sitting balance, and mobility. Pt in shower on shower bench, able to hold seated balance and complete shower with no LOB. Pt SB transfers to WC ModA x2 and gets dressed (see OT note). For LB dressing, pt attempts to complete chair press up x2, but unable to complete with ModA x3. Pt then dons pants in WC by leaning to each side, using L stump to press up on OT and PT A pt lift each side of bottom off of chair. Once pants are pulled up OT exits tx. 5: Pt maneuvers WC around room and on ARU 250', with rest breaks as needed d/t fatigue. Pt returns to room and remains in WC. Pt left with all needs met, call light in hand. Assessment Current Status: Fair Progress Pt has low activity tolerance and UE weakness. Fatigues easily and requires more A PT Short Term Goals Short Term Goals Time Frame: Sep 16, 2021 Roll Left & Right: 6 Sit to lyin Lying to sitting on side of be: 4 Sit to stand: 3 Chair/vmj-oa-oumir transfer: 4 PT Associate Quality Engineer Goals Associate Quality Engineer Goals PT Halfway Goals Time Frame: Sep 30, 2021 Roll Left & Right (QC): 6 Sit to Lying (QC): 6 Lying-Sitting on Side/Bed(QC): 6 Sit to Stand (QC): 4 Chair/Yew-an-Qcrub Xfer(QC): 4 Toilet Transfer (QC): 4 Car Transfer (QC): 3 Does the Patient Walk: No and Walking Goal NOT indicated Walk 10 feet (QC): 88 Walk 50ft with 2 Turns (QC): 88 Walk 150 ft (QC): 88 Walking 10ft on Uneven Surface: 88 1 Step (curb) (QC): 88 4 Steps (QC): 88 12 Steps (QC): 88 Picking up an Object (QC): 6 Wheel 50 feet with 2 turns (QC: 6 Wheel 150 feet: 6 PT Plan Problem List Problem List: Activity Tolerance, Functional Strength, Safety, Transfer Treatment/Plan Treatment Plan: Continue Plan of Care Treatment Plan: Bed Mobility, Education, Functional Activity Julisa, Functional Strength, Group Therapy, Gait, Safety, Therapeutic Exercise, Transfers Treatment Duration: Sep 30, 2021 Frequency: At least 5 of 7 days/Wk (IRF) Estimated Hrs Per Day: 1.5 hours per day Patient and/or Family Agrees t: Yes Time/GCodes Time In: 1115 Time Out: 1215 Total Billed Treatment Time: 60 Total Billed Treatment 1, FA x3, VAN EARL WITT ASSISTANT WOMENS VOLLEYBALL COACH Sep 15, 2021 12:12
--- NOTE | 2021-09-15 12:57 | Occupational Ther Daily Note ---
OT Current Status-Daily Note Subjective Pt sitting EOB talking with visitor, alert. No c/o pain. Pt agrees to therapy. Mental Status/Objective Patient Orientation: Person, Place, Time, Situation Attachments: Other-See Comments (ceramic L leg prothesis) ADL-Treatment 1 Session ([id number]) Pt agrees to shower. Pt EOB->w/c Mod A x2. Pt w/c to shower bench using SB Mod A x2 and Mod A x3 for shower bench to w/c with VC on hand placement and body mechanics. PT/OT cotreat ([id number]), 2 skilled clinicians required for skilled treatment to decrease fall risk and increase activity tolerance and transfers. PT focused on transfers and mobility, OT focused on ADLs and body mechanics. After shower, pt needed Max A x3 in donning LB dressing while seated in w/c. Therapy Code Descriptions/Definitions Functional [place] Measure: 0=Not Assessed/NA 4=Minimal Assistance 1=Total Assistance 5=Supervision or Setup 2=Maximal Assistance 6=Modified [place] 3=Moderate Assistance 7=Complete IndependenceSCALE: Activities may be completed with or without assistive devices. 7-Hblxksqpbf-spgqtgg completes the activity by him/herself with no assistance from a helper. 5-Set-up or Clean-up Assistance-helper sets up or cleans up; patient completes activity. [place] assists only prior to or following the activity. 4-Supervision or Touching Assistance-helper provides verbal cues and/or touching/steadying and/or contact guard assistance as patient completes activity. Assistance may be provided throughout the activity or intermittently. 3-Partial/Moderate Assistance-helper does LESS THAN HALF the effort. [place] lifts, holds or supports trunk or limbs, but provides less than half the effort. 2-Substantial/Maximal Assistance-helper does MORE THAN HALF the effort. [place] lifts or holds trunk or limbs and provides more than half the effort. 0-Ltvevfjpb-smiayg does ALL the effort. Patient does none of the effort to complete the activity. Or, the assistance of 2 or more helpers is required for the patient to complete the activity. If activity was not attempted, code reason: 7-Patient Refused. 9-Not Applicable-not attempted and the patient did not perform the activity before the current illness, exacerbation or injury. 10-Not Attempted due to Environmental Limitations-(lack of equipment, weather restraints, etc.). 88-Not Attempted due to Medical Conditions or Safety Concerns. Oral Hygiene (QC): 6 (Independent, pt completed while in shower.) Bathing Location: L Arm, R Arm, L Upper Leg, R Upper Leg, Chest, Abdomen, Buttocks, Perineal Area Shower/Bathe Self (QC): 4 (SBA while pt completes shower.) Upper Body Dressing (QC): 5 (Pt completes with supplies gathered) Other Treatment 2 Session- ([id number]) Pt participated in therapeutic exercise to strengthen B UE for ADLs and functional mobility using red (medium) theraband for resistance. Pt engaged in B wrist extension, B wrist flexion, B radial/ulnar wrist deviations 10 reps x2 sets. Pt engaged in wrist stretches 2 reps x2 of prayer stretch, reverse prayer stretch. After session, pt sitting EOB with call light/phone within reach. All needs met. OT Short Term Goals Short Term Goals Time Frame: Sep 23, 2021 Toileting hygiene: 3 Shower/bathe self: 3 Lower body dressin Putting on/taking off footwear: 3 OT Rib Chopper Goals Rib Chopper Goals Time Frame: Oct 09, 2021 Eating (QC): 6 Oral Hygiene (QC): 6 Toileting Hygiene (QC): 4 Shower/Bathe Self (QC): 4 Upper Body Dressing (QC): 6 Lower Body Dressing (QC): 4 On/Off Footwear (QC): 5 (LLE prosthesis only) Additional Goals: 1-Demonstrate ADL Tasks, 2-Verbalize Understanding, 3- ImproveStrength/Julisa 1=Demonstrate adherence to instructed precautions during ADL tasks. 2=Patient will verbalize/demonstrate understanding of assistive devices/modifications for ADL. 3=Patient will improve strength/tolerance for activity to enable patient to perform ADL's. OT Education/Plan Problem List/Assessment Assessment: Decreased UE Strength, Dependent Transfers, Impaired Coordination, Impaired Funct Balance, Impaired Self-Care Skills Discharge Recommendations Plan/Recommendations: Continue POC Treatment Plan/Plan of Care Patient would benefit from OT for education, treatment and training to promote independence in ADL's, mobility, safety and/or upper extremity function for ADL's. Plan of Care: ADL Retraining, Functional Mobility, Group Exercise/Act as Ind, UE Funct Exercise/Act Treatment Duration: Oct 09, 2021 Frequency: At least 5 of 7 days/Wk (IRF) Estimated Hrs Per Day: 1.5 hours per day Rehab Potential: Fair Time/GCodes Start Time: 11:00 (1330) Stop Time: 12:00 (1400) Total Time Billed (hr/min): 90 Billed Treatment Time 1 Visit- ([id number]) ADL 4 (60 min) Co treat with PT ([id number]) Individual ([id number]), 1 Visit- ([id number]) EX 2 (30 min) RAMIN FAULKNER Sep 15, 2021 12:57
[2021-09-15] MEDS: HYDROcodone/APAP 7.5 MG/325 MG (LORTAB, LORCET PLUS) TABLET PO PRN ×2 (13:35→19:41)
--- NOTE | 2021-09-15 13:36 | Physical Therapy Daily Note ---
PT Daily Note-Current Subjective Pt in upon arrival and agrees to tx. Pt has no c/o pain at this time. Mental Status Patient Orientation: Person, Place, Time, Situation Transfers SCALE: Activities may be completed with or without assistive devices. 1-Tanzgwiitf-uxzbuqc completes the activity by him/herself with no assistance from a helper. 5-Set-up or Clean-up Assistance-helper sets up or cleans up; patient completes activity. [place] assists only prior to or following the activity. 4-Supervision or Touching Assistance-helper provides verbal cues and/or touching/steadying and/or contact guard assistance as patient completes activity. Assistance may be provided throughout the activity or intermittently. 3-Partial/Moderate Assistance-helper does LESS THAN HALF the effort. [place] lifts, holds or supports trunk or limbs, but provides less than half the effort. 2-Substantial/Maximal Assistance-helper does MORE THAN HALF the effort. [place] lifts or holds trunk or limbs and provides more than half the effort. 8-Espijzbil-wnvvvq does ALL the effort. Patient does none of the effort to complete the activity. Or, the assistance of 2 or more helpers is required for the patient to complete the activity. If activity was not attempted, code reason: 7-Patient Refused. 9-Not Applicable-not attempted and the patient did not perform the activity before the current illness, exacerbation or injury. 10-Not Attempted due to Environmental Limitations-(lack of equipment, weather restraints, etc.). 88-Not Attempted due to Medical Conditions or Safety Concerns. Roll Left & Right (QC): 3 Sit to Lying (QC): 5 Lying to Sitting/Side of Bed(Q: 5 Chair/Kvh-it-Jjtlx Xfer(QC): 3 Pt completes SB transfer from to bed with ModA Gait Training Does the Patient Walk?: No and Walking Goal NOT indicated Treatments Pt in , discusses how pt sleeps at home. Pt states he sleeps on a recliner couch, doesn't get in/out of bed often when at home. Pt states couch is slightly taller than chair, practiced SB transfer to higher surface from to bed. Pt transfers ModA, once in bed requires Ricardo to roll to each side, pt able to scoot self up into bed. Pt rolls as PT pulls pants up. RN enters room at this time to apply LISSY bandages to R LE to shrink stump. Pt completes rolling Ricardo. Pt remains in bed with all needs met and call light in hand. Assessment Current Status: Fair Progress Pt requires ModA for transfer to higher surface, states at home he sleeps in couch that is slightly higher than WC PT Short Term Goals Short Term Goals Time Frame: Sep 16, 2021 Roll Left & Right: 6 Sit to lyin Lying to sitting on side of be: 4 Sit to stand: 3 Chair/xgf-na-vjjbz transfer: 4 PT Assisted Goals Vegetables Cook Goals PT Assisted Goals Time Frame: Sep 30, 2021 Roll Left & Right (QC): 6 Sit to Lying (QC): 6 Lying-Sitting on Side/Bed(QC): 6 Sit to Stand (QC): 4 Chair/Bfw-eh-Mimsa Xfer(QC): 4 Toilet Transfer (QC): 4 Car Transfer (QC): 3 Does the Patient Walk: No and Walking Goal NOT indicated Walk 10 feet (QC): 88 Walk 50ft with 2 Turns (QC): 88 Walk 150 ft (QC): 88 Walking 10ft on Uneven Surface: 88 1 Step (curb) (QC): 88 4 Steps (QC): 88 12 Steps (QC): 88 Picking up an Object (QC): 6 Wheel 50 feet with 2 turns (QC: 6 Wheel 150 feet: 6 PT Plan Problem List Problem List: Activity Tolerance, Functional Strength, Safety Treatment/Plan Treatment Plan: Continue Plan of Care Treatment Plan: Bed Mobility, Education, Functional Activity Julisa, Functional Strength, Group Therapy, Gait, Safety, Therapeutic Exercise, Transfers Treatment Duration: Sep 30, 2021 Frequency: At least 5 of 7 days/Wk (IRF) Estimated Hrs Per Day: 1.5 hours per day Patient and/or Family Agrees t: Yes Time/GCodes Time In: 1300 Time Out: 1330 Total Billed Treatment Time: 30 Total Billed Treatment 1, FA x2 EARL WITT IT SECURITY PROJECT MANAGER Sep 15, 2021 13:35
[2021-09-15 20:05] VITALS: BP 132/64
[2021-09-16] MEDS: MELATONIN 3 MG TABLET PO PRN (00:28)
[2021-09-16 07:53] VITALS: BP 144/65
[2021-09-16] MEDS: FERROUS SULF 325 MG (IRON) TAB PO SCH (08:39)
[2021-09-16] MEDS: SODIUM BICARBONATE 650 MG TABLET (NON-FORMULARY) PO SCH (08:39)
[2021-09-16] MEDS: HYDROcodone/APAP 7.5 MG/325 MG (LORTAB, LORCET PLUS) TABLET PO PRN ×2 (08:39→14:17)
[2021-09-16] MEDS: ASPIRIN E.C. 81 MG (ECOTRIN) TAB PO SCH (08:39)
[2021-09-16] MEDS: SENNA W/DOCUSATE (SENOKOT S) TABLET PO SCH ×2 (08:39→20:49)
[2021-09-16] MEDS: AtorvaSTATin TABLET 10 MG TABLET PO SCH (08:40)
[2021-09-16] MEDS: amLODIPine 10 MG (NORVASC) TAB PO SCH (08:40)
[2021-09-16] MEDS: CLOPIDOGREL 75 MG (PLAVIX) TABLET PO SCH (08:40)
[2021-09-16] MEDS: DOCUSATE SODIUM 100 MG (COLACE) CAP PO SCH ×2 (08:40→20:49)
[2021-09-16] MEDS: polyethylene glycoL POWDER 17 GM (MIRALAX) PACK PO SCH ×2 (08:50→20:49)
--- NOTE | 2021-09-16 11:52 | Physical Therapy Daily Note ---
PT Daily Note-Current Subjective Pt. states he is getting a little depressed b/c he has such a long way to go . Pt. lethargic but agrees to Rx with encouragement. Pt. agreed to donning prosthesis for TRFs and standing at // bars and w/c mobility. No c/o pain. Pt. does express some fear and anxiety about standing Pain Location: No Pain Reported Appearance Left residual limb pink, no open areas noted Mental Status Patient Orientation: Person, Place, Situation Attachments: Other-See Comments (left BK prosthesis) Transfers SCALE: Activities may be completed with or without assistive devices. 9-Fvljtmuxay-zbdgtez completes the activity by him/herself with no assistance from a helper. 5-Set-up or Clean-up Assistance-helper sets up or cleans up; patient completes activity. [place] assists only prior to or following the activity. 4-Supervision or Touching Assistance-helper provides verbal cues and/or touching/steadying and/or contact guard assistance as patient completes activity. Assistance may be provided throughout the activity or intermittently. 3-Partial/Moderate Assistance-helper does LESS THAN HALF the effort. [place] lifts, holds or supports trunk or limbs, but provides less than half the effort. 2-Substantial/Maximal Assistance-helper does MORE THAN HALF the effort. [place] lifts or holds trunk or limbs and provides more than half the effort. 8-Qyxgdjzqr-jlhwxk does ALL the effort. Patient does none of the effort to complete the activity. Or, the assistance of 2 or more helpers is required for the patient to complete the activity. If activity was not attempted, code reason: 7-Patient Refused. 9-Not Applicable-not attempted and the patient did not perform the activity before the current illness, exacerbation or injury. 10-Not Attempted due to Environmental Limitations-(lack of equipment, weather restraints, etc.). 88-Not Attempted due to Medical Conditions or Safety Concerns. Roll Left & Right (QC): 6 Lying to Sitting/Side of Bed(Q: 6 Sit to Stand (QC): 3 Chair/Buo-hz-Dhjwy Xfer(QC): [address] w/c and slide brd, CGA to min assist bed to w/c with curved sld brd. sit to stand x 3 at // bars with assist of 2 to 3 min to mod but once on his left leg pt. with heavy wt bearing through arms stood approx 30 sec x 3. PT OT co Rx for this task as well as sld brd TRF bed to w/c. Wheelchair Training Does the Pt Use a Wheelchair?: Yes Wheel 50 ft with 2 turns (QC): 5 Type of Wheelchair: Manual pt. instructed by PT and OT for use of UEs as well as use LLE prosthesis for "dig with heel " using prosthesis. Pt. was challenged by this but did attempt. Otherwise pt. is indep with w/c Exercises Supine Ex: Quad Set, Rolling, Glut sets, Heel Slides, Scooting, Straight leg raise, Hip abd/add Supine Reps: 20 (bilat) Seated Therapy Exercises: Sit to stand Seated Reps: 4 arm chair push ups and instruction in skin protection with pressure relief Treatments PT OT co Rx secondary to poor activity tolerance , contd weakness and need for 2 skilled clinicians for safety and coordination of skilled care and instruction. bed mob, therex, donning and doffing prosthesis, TRFs , w/c mob, stance and safety and technique instruction Assessment Current Status: Good Progress PT Short Term Goals Short Term Goals Time Frame: Sep 16, 2021 Roll Left & Right: 6 Sit to lyin Lying to sitting on side of be: 4 Sit to stand: 3 Chair/wpd-qn-nnopz transfer: 4 PT Chcf Goals Strategic Partner Development Manager Goals PT Strategic Partner Development Manager Goals Time Frame: Sep 30, 2021 Roll Left & Right (QC): 6 Sit to Lying (QC): 6 Lying-Sitting on Side/Bed(QC): 6 Sit to Stand (QC): 4 Chair/Krm-ui-Shaev Xfer(QC): 4 Toilet Transfer (QC): 4 Car Transfer (QC): 3 Does the Patient Walk: No and Walking Goal NOT indicated Walk 10 feet (QC): 88 Walk 50ft with 2 Turns (QC): 88 Walk 150 ft (QC): 88 Walking 10ft on Uneven Surface: 88 1 Step (curb) (QC): 88 4 Steps (QC): 88 12 Steps (QC): 88 Picking up an Object (QC): 6 Wheel 50 feet with 2 turns (QC: 6 Wheel 150 feet: 6 PT Plan Treatment/Plan Treatment Plan: Continue Plan of Care Treatment Plan: Bed Mobility, Education, Functional Activity Julisa, Functional Strength, Group Therapy, Gait, Safety, Therapeutic Exercise, Transfers Treatment Duration: Sep 30, 2021 Frequency: At least 5 of 7 days/Wk (IRF) Estimated Hrs Per Day: 1.5 hours per day Patient and/or Family Agrees t: Yes Safety Risks/Education Patient Education: Transfer Techniques, Correct Positioning, W/C Management, Disease Process, Safety Issues Teaching Recipient: Patient Teaching Methods: Demonstration, Discussion Response to Teaching: Verbalize Understanding, Return Demonstration, Reinforcement Needed Time/GCodes Time In: 1045 Time Out: 1145 Total Billed Treatment Time: 60 Total Billed Treatment 1,FA30m,EX20m,WC10m ESHA AVILA ER MEDICAL TECHNICIAN Sep 16, 2021 11:52
--- NOTE | 2021-09-16 12:16 | Occupational Ther Daily Note ---
OT Current Status-Daily Note Subjective Pt sitting EOB talking with PT, alert. No c/o pain. Pt agrees to therapy. Mental Status/Objective Patient Orientation: Person, Place, Time, Situation Attachments: Other-See Comments (L LE ceramic prosthesis) ADL-Treatment Therapy Code Descriptions/Definitions Functional [place] Measure: 0=Not Assessed/NA 4=Minimal Assistance 1=Total Assistance 5=Supervision or Setup 2=Maximal Assistance 6=Modified [place] 3=Moderate Assistance 7=Complete IndependenceSCALE: Activities may be completed with or without assistive devices. 2-Dccnyautmr-mfuijwh completes the activity by him/herself with no assistance from a helper. 5-Set-up or Clean-up Assistance-helper sets up or cleans up; patient completes activity. [place] assists only prior to or following the activity. 4-Supervision or Touching Assistance-helper provides verbal cues and/or touching/steadying and/or contact guard assistance as patient completes activity. Assistance may be provided throughout the activity or intermittently. 3-Partial/Moderate Assistance-helper does LESS THAN HALF the effort. [place] lifts, holds or supports trunk or limbs, but provides less than half the effort. 2-Substantial/Maximal Assistance-helper does MORE THAN HALF the effort. [place] lifts or holds trunk or limbs and provides more than half the effort. 0-Lartwougs-gchvhz does ALL the effort. Patient does none of the effort to complete the activity. Or, the assistance of 2 or more helpers is required for the patient to complete the activity. If activity was not attempted, code reason: 7-Patient Refused. 9-Not Applicable-not attempted and the patient did not perform the activity before the current illness, exacerbation or injury. 10-Not Attempted due to Environmental Limitations-(lack of equipment, weather restraints, etc.). 88-Not Attempted due to Medical Conditions or Safety Concerns. Other Treatment PT/OT cotreat with pt ([id number]), 2 skilled clinicians required for skilled treatment to decrease fall risk, increase functional mobility and activity tolerance. PT focused on transfers, mobility, and standing balance, OT focused on UB strength, hand placement and body mechanics, functional mobility and balance. Pt required assist donning leg cover and prosthesis while seated EOB. Pt EOB->w/c using SB CGA. Pt propelled w/c to parallel bars in therapy room with VC given on setting brakes on w/c.. VC given for pt to use prosthesis to assist in propelling. Pt sit<->stand 2x using parallel bars for stability Min A x3, VC given for hand placement and body mechanics. Pt propelled back to room. Assist given to doff prosthesis and leg cover while pt seated in w/c, area checked for redness with none seen. See PT notes for progress in standing and transfers. After session, pt sitting in w/c with call light/phone in reach and all needs met in room. OT Short Term Goals Short Term Goals Time Frame: Sep 23, 2021 Toileting hygiene: 3 Shower/bathe self: 3 Lower body dressin Putting on/taking off footwear: 3 OT Renewal Specialist Goals Skilled Nursing Goals Time Frame: Oct 09, 2021 Eating (QC): 6 Oral Hygiene (QC): 6 Toileting Hygiene (QC): 4 Shower/Bathe Self (QC): 4 Upper Body Dressing (QC): 6 Lower Body Dressing (QC): 4 On/Off Footwear (QC): 5 (LLE prosthesis only) Additional Goals: 1-Demonstrate ADL Tasks, 2-Verbalize Understanding, 3- ImproveStrength/Julisa 1=Demonstrate adherence to instructed precautions during ADL tasks. 2=Patient will verbalize/demonstrate understanding of assistive devices /modifications for ADL. 3=Patient will improve strength/tolerance for activity to enable patient to perform ADL's. OT Education/Plan Problem List/Assessment Assessment: Decreased Safety Aware, Dependent Transfers, Impaired Bed Mobility, Impaired Funct Balance Discharge Recommendations Plan/Recommendations: Continue POC Treatment Plan/Plan of Care Patient would benefit from OT for education, treatment and training to promote independence in ADL's, mobility, safety and/or upper extremity function for ADL's. Plan of Care: ADL Retraining, Functional Mobility, Group Exercise/Act as Ind, UE Funct Exercise/Act Treatment Duration: Oct 09, 2021 Frequency: At least 5 of 7 days/Wk (IRF) Estimated Hrs Per Day: 1.5 hours per day Rehab Potential: Fair Time/GCodes Start Time: 11:00 Stop Time: 12:00 Total Time Billed (hr/min): 60 Billed Treatment Time 1 Visit- FA 4 (60 min) Cotreat OT [id number], Individual [id number] RAMIN FAULKNER Sep 16, 2021 12:16
--- NOTE | 2021-09-16 12:29 | PM&R Progress Note ---
Subjective HPI/CC On Admission Date Seen by Provider: Sep 16, 2021 Time Seen by Provider: 12:00 Subjective/Events-last exam 09/16/2021: Pt doing okay In good spirits today Psych eval scheduled for tomorrow Discharge is planned for Tuesday09/15/2021: Pt still max assist but participating in therapy Behavioral health consult ordered Overall very flat affect 09/14/2021: Pt doing well Creatinine 2 Potassium 5.6- no medication can retain Potassium that I reviewed Hgb 8.6 Overall very flat affect and depressed 09/13/21: Patient doing well Tearful at times at bedside Behavioral consult will be performed [employer] will be pursued by 09/12/21: Patient doing well [place] are ok BM + Pain reported but is controlled 09/11/21: Patient doing well Wrapping stump with LISSY wraps Pain controlled BM+ 09/10/2021: Patient doing well Pain medication maintained Remains max assist Accu-Cheks are good Hemoglobin 8.3 Creatinine 1.69 Bowels are moving Participating in all therapy Review of Systems Musculoskeletal: leg pain Objective Exam Vital Signs Vital Signs Date Time Temp Pulse Resp B/P (MAP) Pulse Ox O2 Delivery O2 Flow Rate FiO2 09/16/21 20:52 Room Air 09/16/21 20:00 36.4 72 18 136/63 (87) 09/16/21 07:53 99 Capillary Refill : General Appearance: No Apparent Distress, WD/WN, Chronically ill, Obese HEENT: PERRL/EOMI, Normal ENT Inspection, Pharynx Normal Neck: Full Range of Motion, Normal Inspection, Non Tender, Supple, Carotid Bruit Respiratory: Chest Non Tender, Lungs Clear, Normal Breath Sounds, No Accessory Muscle Use, No Respiratory Distress Cardiovascular: Regular Rate, Rhythm, No Edema, No Gallop, No JVD, No Murmur, Normal Peripheral Pulses Gastrointestinal: Normal Bowel Sounds, No Organomegaly, No Pulsatile Mass, Non Tender, Soft Back: Normal Inspection, No CVA Tenderness, No Vertebral Tenderness Extremity: Normal Capillary Refill, Normal Inspection, Normal Range of Motion, Non Tender, No Calf Tenderness, Other (right AKA haile in place, left BKA) Neurologic/Psychiatric: Alert, Oriented x3, No Motor/Sensory Deficits, Normal Mood/Affect Skin: Normal Color, Warm/Dry Lymphatic: No Adenopathy Results/Procedures Lab Patient resulted labs reviewed. FIM Transfers Therapy Code Descriptions/Definitions Functional [place] Measure: 0=Not Assessed/NA 4=Minimal Assistance 1=Total Assistance 5=Supervision or Setup 2=Maximal Assistance 6=Modified [place] 3=Moderate Assistance 7=Complete IndependenceSCALE: Activities may be completed with or without assistive devices. 7-Qujsnfzjag-wwjanpk completes the activity by him/herself with no assistance from a helper. 5-Set-up or Clean-up Assistance-helper sets up or cleans up; patient completes activity. [place] assists only prior to or following the activity. 4-Supervision or Touching Assistance-helper provides verbal cues and/or touching/steadying and/or contact guard assistance as patient completes activity. Assistance may be provided throughout the activity or intermittently. 3-Partial/Moderate Assistance-helper does LESS THAN HALF the effort. [place] lifts, holds or supports trunk or limbs, but provides less than half the effort. 2-Substantial/Maximal Assistance-helper does MORE THAN HALF the effort. [place] lifts or holds trunk or limbs and provides more than half the effort. 0-Hfuqmezoe-thklfn does ALL the effort. Patient does none of the effort to complete the activity. Or, the assistance of 2 or more helpers is required for the patient to complete the activity. If activity was not attempted, code reason: 7-Patient Refused. 9-Not Applicable-not attempted and the patient did not perform the activity before the current illness, exacerbation or injury. 10-Not Attempted due to Environmental Limitations-(lack of equipment, weather restraints, etc.). 88-Not Attempted due to Medical Conditions or Safety Concerns. Roll Left to Right (QC): 6 Sit to Lying (QC): 5 Sit to Stand (QC): 3 Chair/Ndx-sa-Xpcpl Xfer(QC): 3 Car Transfer (QC): 88 Gait Training Does the Patient Walk?: No and Walking Goal NOT indicated Walk 10 feet (QC): 88 Walk 50 ft with 2 Turns(QC): 88 Walk 150 ft (QC): 88 Walking 10ft/uneven surface-QC: 88 Wheelchair Training Does the Pt Use a Wheelchair?: Yes Wheel 50 ft with 2 turns (QC): 5 Wheel 150 ft (QC): 5 Type of Wheelchair: Manual Stair Training 1 Step (curb) (QC): 88 4 Steps (QC): 88 12 Steps (QC): 88 Balance Picking up an Object (QC): 6 ADL-Treatment Eating (QC): 6 (Pt independent with meal) Oral Hygiene (QC): 6 (Independent, pt completed while in shower.) Bathing Location: L Arm, R Arm, L Upper Leg, R Upper Leg, Chest, Abdomen, Buttocks, Perineal Area Shower/Bathe Self (QC): 4 (SBA while pt completes shower.) Upper Body Dressing (QC): 5 (Pt completes with supplies gathered) Lower Body Dressing (QC): 3 (In supine assist to thread B stumps into pants then pt able to hike over hips rolling side to side.) On/Off Footwear (QC): 88 Toileting Hygiene (QC): 7 Assessment/Plan Assessment and Plan Assess & Plan/Chief Complaint Assessment: s/p right AKA due to osteomyelitis Remote hx of left BKA DM HTN HLP Recent psychosis CKD Smoker Obesity Situational depression seeking counseling Plan: Monitor closely DM management Pain control IRF protocol 09/10/2021: Continue aggressive therapy Monitor blood sugars 09/11/21: DC accuchecks Monitor pain 09/12/21: Monitor closely Pain controlled 09/13/21: Needs counseling Monitor labs Pain control 09/14/2021: Depression management 09/15/2021: Aggressive therapy Behavioral health consult 09/16/2021: Psych eval Discharge plan for next week (1) S/P AKA (above knee amputation) (2) Diabetes (3) History of left below knee amputation (4) Psychosis (5) CKD (chronic kidney disease) AFTAB BENZ DO Sep 16, 2021 12:29
--- NOTE | 2021-09-16 14:30 | Therapy Group Daily Note ---
Therapy Daily Group Note Patient Education Topic Other List Below Exercises LE Seated Exercise, UE Exercise Session Ratio (pt:therapist): 7:2 Goal of Session: Education on ARU Expectations, Memory Strategies, UE/LE Strengthing Goal Met for this Session: Yes Pt Benefit of Group: Contributions to Others, F/U Use of Strategies @Home, Increased Functional Safety, Increased Functional Strength, Improved Cognition, Recognition of Peers, Socialization Other/Notes Pt transported via w/c to [facility] for OT/PT group. Group consisted of introductions (name, place living, childhood memory), socialization, B UE/LE seated exercises, educational topics of ARU description/expectations and memory. Pt introduced self appropriately and actively listened to peers. Pt able to complete B UE/LE WFL with minimal modifications due to medical issues. Pt acknowledged understanding of educational topics by nodding affirmative and giving own personal strategies. After session, pt lying in bed with call light/phone in reach. All needs met in room. Start Time: 13:00 Stop Time: 14:00 Total Billed Treatment Time: 60 Total Billed Treatment 1-RAMIN MEDEL Sep 16, 2021 14:30
[2021-09-16 20:00] VITALS: BP 136/63
[2021-09-17] MEDS: SENNA W/DOCUSATE (SENOKOT S) TABLET PO SCH ×2 (08:33→20:42)
[2021-09-17] MEDS: AtorvaSTATin TABLET 10 MG TABLET PO SCH (08:33)
[2021-09-17] MEDS: CLOPIDOGREL 75 MG (PLAVIX) TABLET PO SCH (08:33)
[2021-09-17] MEDS: amLODIPine 10 MG (NORVASC) TAB PO SCH (08:33)
[2021-09-17] MEDS: ASPIRIN E.C. 81 MG (ECOTRIN) TAB PO SCH (08:33)
[2021-09-17] MEDS: polyethylene glycoL POWDER 17 GM (MIRALAX) PACK PO SCH ×2 (08:34→20:42)
[2021-09-17] MEDS: DOCUSATE SODIUM 100 MG (COLACE) CAP PO SCH ×2 (08:34→20:42)
[2021-09-17] MEDS: FERROUS SULF 325 MG (IRON) TAB PO SCH (08:34)
[2021-09-17 09:16] VITALS: BP 125/59
--- NOTE | 2021-09-17 10:56 | Physical Therapy Daily Note ---
PT Daily Note-Current Subjective Patient sitting in w/c upon PT arrival, agreeable to treatment. Currently reports 0/10 pain. Reports nursing helped him get to the w/c with slideboard. Mental Status Patient Orientation: Person, Place, Time, Situation Transfers SCALE: Activities may be completed with or without assistive devices. 1-Zbilrratff-rzxumzv completes the activity by him/herself with no assistance from a helper. 5-Set-up or Clean-up Assistance-helper sets up or cleans up; patient completes activity. [place] assists only prior to or following the activity. 4-Supervision or Touching Assistance-helper provides verbal cues and/or touching/steadying and/or contact guard assistance as patient completes activity. Assistance may be provided throughout the activity or intermittently. 3-Partial/Moderate Assistance-helper does LESS THAN HALF the effort. [place] lifts, holds or supports trunk or limbs, but provides less than half the effort. 2-Substantial/Maximal Assistance-helper does MORE THAN HALF the effort. [place] lifts or holds trunk or limbs and provides more than half the effort. 2-Uwlznxzil-nmhyug does ALL the effort. Patient does none of the effort to complete the activity. Or, the assistance of 2 or more helpers is required for the patient to complete the activity. If activity was not attempted, code reason: 7-Patient Refused. 9-Not Applicable-not attempted and the patient did not perform the activity before the current illness, exacerbation or injury. 10-Not Attempted due to Environmental Limitations-(lack of equipment, weather restraints, etc.). 88-Not Attempted due to Medical Conditions or Safety Concerns. Sit to Stand (QC): 2 Chair/Nkr-gc-Yfsjn Xfer(QC): 2 Gait Training Does the Patient Walk?: No and Walking Goal IS indicated Wheelchair Training Does the Pt Use a Wheelchair?: Yes Wheel 50 ft with 2 turns (QC): 5 Wheel 150 ft (QC): 5 Type of Wheelchair: Manual Patient able to propel the w/c 200 feet x 2 with rest break in between, with SBA and verbal cues for progression. Exercises Seated Therapy Exercises: Long arc quads, Hip flexion, Hamstring Curls, Hip abd/add Seated Reps: 20 Left hip and knee exercises done 4 x 20 reps with manual resistance from PT Treatments Patient performed LE therapeutic exercises as listed above. He performed w/c mobility with 1 rest break. Patient performed dynamic Assessment Current Status: Fair Progress PT Short Term Goals Short Term Goals Time Frame: Sep 16, 2021 Roll Left & Right: 6 Sit to lyin Lying to sitting on side of be: 4 Sit to stand: 3 Chair/ecr-bl-mkswp transfer: 4 PT Call Center Trainer Goals Group Home Goals PT Group Home Goals Time Frame: Sep 30, 2021 Roll Left & Right (QC): 6 Sit to Lying (QC): 6 Lying-Sitting on Side/Bed(QC): 6 Sit to Stand (QC): 4 Chair/Qww-vv-Jhppb Xfer(QC): 4 Toilet Transfer (QC): 4 Car Transfer (QC): 3 Does the Patient Walk: No and Walking Goal NOT indicated Walk 10 feet (QC): 88 Walk 50ft with 2 Turns (QC): 88 Walk 150 ft (QC): 88 Walking 10ft on Uneven Surface: 88 1 Step (curb) (QC): 88 4 Steps (QC): 88 12 Steps (QC): 88 Picking up an Object (QC): 6 Wheel 50 feet with 2 turns (QC: 6 Wheel 150 feet: 6 PT Plan Treatment/Plan Treatment Plan: Continue Plan of Care Treatment Plan: Bed Mobility, Education, Functional Activity Julisa, Functional Strength, Group Therapy, Gait, Safety, Therapeutic Exercise, Transfers Treatment Duration: Sep 30, 2021 Frequency: At least 5 of 7 days/Wk (IRF) Estimated Hrs Per Day: 1.5 hours per day Patient and/or Family Agrees t: Yes Safety Risks/Education Patient Education: Transfer Techniques, Reviewed Precautions, W/C Management Teaching Recipient: Patient Teaching Methods: Demonstration, Discussion Response to Teaching: Verbalize Understanding Time/GCodes Time In: 900 Time Out: 1030 Total Billed Treatment Time: 90 Total Billed Treatment Visit, Ex x 2, FA x 2, W/C x 2 HAI OSPINA PT Sep 17, 2021 10:56
--- NOTE | 2021-09-17 11:55 | Occupational Ther Daily Note ---
OT Current Status-Daily Note Subjective Pt alert, sitting in w/c. Pt agrees to therapy. No c/o pain at this time. Mental Status/Objective Patient Orientation: Person, Place, Time, Situation ADL-Treatment Pt states that he needs to use the bathroom. Initially pt is wanting to transfer back to bed to use bedpan instead of using drop arm bariatric commode. Discussed commode transfer with pt. Pt then described how he completes at home. Pt does not have a drop arm bariatric commode to allow for a sliding board transfer due to being a B LE amputee. Pt states that he typically transfers back into bed, will use a bucket similar to one that comes from a regular BSC, lays on side and places bucket at buttocks then completes toileting. With more discussion, pt does not have a safe means of using a toilet to complete toileting. Pt educated on using SB transfer with a drop arm bariatric commode. Assist to place w/c, sliding board placement and L LE prosthetic. Min A to complete transfer onto drop arm bariatric commode. Assist to hike pants over hips while pt leans side to side. Pt able to cleanse arline area sitting on drop arm bariatric commode then assist to cleanse buttocks. Therapy Code Descriptions/Definitions Functional [place] Measure: 0=Not Assessed/NA 4=Minimal Assistance 1=Total Assistance 5=Supervision or Setup 2=Maximal Assistance 6=Modified [place] 3=Moderate Assistance 7=Complete IndependenceSCALE: Activities may be completed with or without assistive devices. 2-Tukpbfdwiv-werhfrs completes the activity by him/herself with no assistance from a helper. 5-Set-up or Clean-up Assistance-helper sets up or cleans up; patient completes activity. [place] assists only prior to or following the activity. 4-Supervision or Touching Assistance-helper provides verbal cues and/or touching/steadying and/or contact guard assistance as patient completes activity. Assistance may be provided throughout the activity or intermittently. 3-Partial/Moderate Assistance-helper does LESS THAN HALF the effort. [place] lifts, holds or supports trunk or limbs, but provides less than half the effort. 2-Substantial/Maximal Assistance-helper does MORE THAN HALF the effort. [place] lifts or holds trunk or limbs and provides more than half the effort. 2-Npywvlisl-iqseda does ALL the effort. Patient does none of the effort to complete the activity. Or, the assistance of 2 or more helpers is required for the patient to complete the activity. If activity was not attempted, code reason: 7-Patient Refused. 9-Not Applicable-not attempted and the patient did not perform the activity be fore the current illness, exacerbation or injury. 10-Not Attempted due to Environmental Limitations-(lack of equipment, weather restraints, etc.). 88-Not Attempted due to Medical Conditions or Safety Concerns. Toileting Hygiene (QC): 2 Other Treatment Pt completed B UE exercises to increase strength for transfers and daily functional tasks. Skilled instruction for correct technique when completing exercises. Using medium (red theraband) pt completed 3 wrist strengthening exercises 2 sets 15 reps. Using 3# hand wts, pt completed 4 B shldr and tricep exercises to strengthen for transfers, 2 sets 15 reps. Pt had limited shldr ROM during R shldr press due to decreased strength. After session, pt sitting in recliner with call light/phone in reach. All needs met in room. OT Short Term Goals Short Term Goals Time Frame: Sep 23, 2021 Toileting hygiene: 3 Shower/bathe self: 3 Lower body dressin Putting on/taking off footwear: 3 OT Yard Motor Operator Goals Yard Motor Operator Goals Time Frame: Oct 09, 2021 Eating (QC): 6 Oral Hygiene (QC): 6 Toileting Hygiene (QC): 4 Shower/Bathe Self (QC): 4 Upper Body Dressing (QC): 6 Lower Body Dressing (QC): 4 On/Off Footwear (QC): 5 (LLE prosthesis only) Additional Goals: 1-Demonstrate ADL Tasks, 2-Verbalize Understanding, 3- ImproveStrength/Julisa 1=Demonstrate adherence to instructed precautions during ADL tasks. 2=Patient will verbalize/demonstrate understanding of assistive devices/modifications for ADL. 3=Patient will improve strength/tolerance for activity to enable patient to perform ADL's. OT Education/Plan Problem List/Assessment Assessment: Decreased Activ Tolerance, Decreased UE Strength, Impaired Funct Balance, Impaired Self-Care Skills Discharge Recommendations Plan/Recommendations: Continue POC Treatment Plan/Plan of Care Patient would benefit from OT for education, treatment and training to promote independence in ADL's, mobility, safety and/or upper extremity function for ADL's. Plan of Care: ADL Retraining, Functional Mobility, Group Exercise/Act as Ind, UE Funct Exercise/Act Treatment Duration: Oct 09, 2021 Frequency: At least 5 of 7 days/Wk (IRF) Estimated Hrs Per Day: 1.5 hours per day Rehab Potential: Fair Time/GCodes Start Time: 10:30 Stop Time: 12:00 Total Time Billed (hr/min): 90 Billed Treatment Time 1 visit-ADL 5 (70 min) EX 1 (20 min) RAMIN FAULKNER Sep 17, 2021 11:55
--- NOTE | 2021-09-17 12:17 | PM&R Progress Note ---
Subjective HPI/CC On Admission Date Seen by Provider: Sep 17, 2021 Time Seen by Provider: 12:15 Subjective/Events-last exam 09/17/2021: Bowels are moving Patient doing really well Improved overall Transfers are not smooth but goal oriented Psych eval at 1 PM 09/16/2021: Pt doing okay In good spirits today Psych eval scheduled for tomorrow Discharge is planned for Tuesday09/15/2021: Pt still max assist but participating in therapy Behavioral health consult ordered Overall very flat affect 09/14/2021: Pt doing well Creatinine 2 Potassium 5.6- no medication can retain Potassium that I reviewed Hgb 8.6 Overall very flat affect and depressed 09/13/21: Patient doing well Tearful at times at bedside Behavioral consult will be performed [employer] will be pursued by 09/12/21: Patient doing well [place] are ok BM + Pain reported but is controlled 09/11/21: Patient doing well Wrapping stump with LISSY wraps Pain controlled BM+ 09/10/2021: Patient doing well Pain medication maintained Remains max assist Accu-Cheks are good Hemoglobin 8.3 Creatinine 1.69 Bowels are moving Participating in all therapy Review of Systems General: Fatigue, [place] Objective Exam Vital Signs Vital Signs Date Time Temp Pulse Resp B/P (MAP) Pulse Ox O2 Delivery O2 Flow Rate FiO2 09/17/21 20:00 36.4 73 18 129/65 (86) 98 Room Air Capillary Refill : General Appearance: No Apparent Distress, WD/WN, Chronically ill, Obese HEENT: PERRL/EOMI, Normal ENT Inspection, Pharynx Normal Neck: Full Range of Motion, Normal Inspection, Non Tender, Supple, Carotid Bruit Respiratory: Chest Non Tender, Lungs Clear, Normal Breath Sounds, No Accessory Muscle Use, No Respiratory Distress Cardiovascular: Regular Rate, Rhythm, No Edema, No Gallop, No JVD, No Murmur, Normal Peripheral Pulses Gastrointestinal: Normal Bowel Sounds, No Organomegaly, No Pulsatile Mass, Non Tender, Soft Back: Normal Inspection, No CVA Tenderness, No Vertebral Tenderness Extremity: Normal Capillary Refill, Normal Inspection, Normal Range of Motion, Non Tender, No Calf Tenderness, Other (right AKA haile in place, left BKA) Neurologic/Psychiatric: Alert, Oriented x3, No Motor/Sensory Deficits, Normal Mood/Affect Skin: Normal Color, Warm/Dry Lymphatic: No Adenopathy Results/Procedures Lab Patient resulted labs reviewed. FIM Transfers Therapy Code Descriptions/Definitions Functional [place] Measure: 0=Not Assessed/NA 4=Minimal Assistance 1=Total Assistance 5=Supervision or Setup 2=Maximal Assistance 6=Modified [place] 3=Moderate Assistance 7=Complete IndependenceSCALE: Activities may be completed with or without assistive devices. 8-Leommacnmj-jchilvp completes the activity by him/herself with no assistance from a helper. 5-Set-up or Clean-up Assistance-helper sets up or cleans up; patient completes activity. [place] assists only prior to or following the activity. 4-Supervision or Touching Assistance-helper provides verbal cues and/or touching/steadying and/or contact guard assistance as patient completes activity. Assistance may be provided throughout the activity or intermittently. 3-Partial/Moderate Assistance-helper does LESS THAN HALF the effort. [place] lifts, holds or supports trunk or limbs, but provides less than half the effort. 2-Substantial/Maximal Assistance-helper does MORE THAN HALF the effort. [place] lifts or holds trunk or limbs and provides more than half the effort. 6-Dkqwgmgva-jrieid does ALL the effort. Patient does none of the effort to comp lete the activity. Or, the assistance of 2 or more helpers is required for the patient to complete the activity. If activity was not attempted, code reason: 7-Patient Refused. 9-Not Applicable-not attempted and the patient did not perform the activity before the current illness, exacerbation or injury. 10-Not Attempted due to Environmental Limitations-(lack of equipment, weather restraints, etc.). 88-Not Attempted due to Medical Conditions or Safety Concerns. Roll Left to Right (QC): 6 Sit to Lying (QC): 5 Sit to Stand (QC): 2 Chair/Pzi-ub-Amxri Xfer(QC): 2 Car Transfer (QC): 88 Gait Training Does the Patient Walk?: No and Walking Goal IS indicated Walk 10 feet (QC): 88 Walk 50 ft with 2 Turns(QC): 88 Walk 150 ft (QC): 88 Walking 10ft/uneven surface-QC: 88 Wheelchair Training Does the Pt Use a Wheelchair?: Yes Wheel 50 ft with 2 turns (QC): 5 Wheel 150 ft (QC): 5 Type of Wheelchair: Manual Stair Training 1 Step (curb) (QC): 88 4 Steps (QC): 88 12 Steps (QC): 88 Balance Picking up an Object (QC): 6 ADL-Treatment Eating (QC): 6 (Pt independent with meal) Oral Hygiene (QC): 6 (Independent, pt completed while in shower.) Bathing Location: L Arm, R Arm, L Upper Leg, R Upper Leg, Chest, Abdomen, Buttocks, Perineal Area Shower/Bathe Self (QC): 4 (SBA while pt completes shower.) Upper Body Dressing (QC): 5 (Pt completes with supplies gathered) Lower Body Dressing (QC): 3 (In supine assist to thread B stumps into pants then pt able to hike over hips rolling side to side.) On/Off Footwear (QC): 88 Toileting Hygiene (QC): 2 Assessment/Plan Assessment and Plan Assess & Plan/Chief Complaint Assessment: s/p right AKA due to osteomyelitis Remote hx of left BKA DM HTN HLP Recent psychosis CKD Smoker Obesity Situational depression seeking counseling Plan: Monitor closely DM management Pain control IRF protocol 09/10/2021: Continue aggressive therapy Monitor blood sugars 09/11/21: DC accuchecks Monitor pain 09/12/21: Monitor closely Pain controlled 09/13/21: Needs counseling Monitor labs Pain control 09/14/2021: Depression management 09/15/2021: Aggressive therapy Behavioral health consult 09/16/2021: Psych eval Discharge plan for next week 09/17/2021: Supportive care Psych care (1) S/P AKA (above knee amputation) (2) Diabetes (3) History of left below knee amputation (4) Psychosis (5) CKD (chronic kidney disease) AFTAB BENZ DO Sep 17, 2021 12:17
[2021-09-17] MEDS: HYDROcodone/APAP 7.5 MG/325 MG (LORTAB, LORCET PLUS) TABLET PO PRN ×2 (14:24→20:36)
--- NOTE | 2021-09-17 14:49 | Behavioral Health Consult ---
Consult- Consult Date Seen by Provider: Sep 17, 2021 Time Seen by Provider: 13:00 CPT Code: 02638 Psychodiagnostic Examination, 1 unit(s) Start Time: 1300 Stop Time: 1420 Chief Complaint: depression Referral: Flash Melendez is a 61-year-old, , male referred by Dr. Carlson for a clinical diagnostic assessment. Information for this evaluation was gathered from self-report. Presenting Problem: The presenting clinical problem is depression. Flash reported he has been struggling with being in the hospital so much of the last year and having both of his legs amputated. He stated when he had his last leg amputated, he was not aware it was going to happen. He reported he had many appointments with many different doctors over the past year and it was tiring. He stated he just wants to be in his own home with his own things. He reported he feels like he just needs to let out his emotions. He stated he had a reaction to a medication that caused hallucinations and that was extremely difficult to deal with. He reported he worries about his dad who has dementia and is 87 years old. Overall symptoms observed or reported requiring current level of care include appetite disturbance, depressed mood, medical problems, and worry. Observations/Mental Status: Flash was setting in his wheelchair in his hospital room when therapist arrived. Overall appearance was unremarkable clinically. Flash appeared to be an adequate historian. Observed gait and gross motor movements indicated a reliance on mechanical assistance (i.e.,walker, wheelchair). In regards to pain, no problems were reported. Jose J general approach to the evaluation was cooperative. Orientation was intact for person, place, time, and situation. Flash evidenced good understanding of the reason for the appointment. Jose J in-session behavior was cooperative. The predominant mood was depressed with affect appropriate to expressed concerns and presenting problem. Immediate attention and concentration was grossly intact. Memory functioning appeared to be intact. Level of intellectual functioning compared to same age peers was estimated to be in the average range. Thought processes were found to be generally logical, coherent and goal directed. Thought content appeared normal. There was no report or evidence of hallucinations or delusions. Psychomotor functioning was within normal limits. Tone of voice was normal and controlled. Expressive speech was marked by fluent speech and language. Eye contact was good. Insight was average. Overall, style of interacting during the appointment was appropriate and motivated. Current/Previous Mental Health Treatment: Past psychiatric history was reported as none. History of self or other harm: none reported. Abuse history: none reported. Family history of mental health was reported as none. Medical History: Medical conditions were reported as right leg amputation above knee, left leg amputation below the knee, diabetes, and chronic kidney disease. See chart for medication list and medication allergies. Recreational Drug Usage: Substance abuse history was reported as some alcohol abuse in his younger years. He denied any current problems. 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 Legal History: Legal history was reported as none. Family and Social Histories: Flash lives with his in [place], [place]. He reported he has one daughter and a granddaughter. He stated his mother 12 years ago and his father is 87 years old. He reported he worries about his dad as he has dementia and knows he does not have many years left. Summary of Assessment Information/ Recommendations: Flash is a 61-year-old male with no history of any psychiatric diagnoses. He reported some depression related to his ongoing health problems. He appears to have a good outlook on life and has a supportive family. Following current assessment, presenting problem and symptoms appear consistent with a preliminary diagnosis of F43.21 Adjustment Disorder with Depressed Mood. Current emotional symptoms are of mild intensity. Overall, prognosis is estimated to be good. He stated he did not feel like he needed mental health therapy, just needed someone to vent to today. It is recommended that Brain follow up with a psychotherapist as needed. Strengths/Weaknesses: Strengths/Resources: insightful and supportive family Liabilities/Barriers: health problems ICD-10 Diagnostic Impressions: F43.21 Adjustment Disorder with Depressed Mood RINKU HARPER [facility] Sep 17, 2021 14:49
[2021-09-17 20:00] VITALS: BP 129/65
[2021-09-18] MEDS: MELATONIN 3 MG TABLET PO PRN (01:13)
[2021-09-18] MEDS: ALPRAZolam 0.25 MG (XANAX) TAB PO PRN ×2 (01:13→22:28)
[2021-09-18] MEDS: AtorvaSTATin TABLET 10 MG TABLET PO SCH (07:35)
[2021-09-18] MEDS: CLOPIDOGREL 75 MG (PLAVIX) TABLET PO SCH (07:35)
[2021-09-18] MEDS: amLODIPine 10 MG (NORVASC) TAB PO SCH (07:35)
[2021-09-18] MEDS: FERROUS SULF 325 MG (IRON) TAB PO SCH (07:35)
[2021-09-18] MEDS: ASPIRIN E.C. 81 MG (ECOTRIN) TAB PO SCH (07:35)
[2021-09-18] MEDS: HYDROcodone/APAP 7.5 MG/325 MG (LORTAB, LORCET PLUS) TABLET PO PRN ×2 (07:47→17:16)
[2021-09-18 07:57] VITALS: BP 147/71
--- NOTE | 2021-09-18 07:57 | Occupational Ther Daily Note ---
OT Current Status-Daily Note Subjective Pt supine in bed, alert. No c/o pain. Pt agrees to therapy. Mental Status/Objective Patient Orientation: Person, Place, Time, Situation Attachments: Other-See Comments (L leg prosthesis) ADL-Treatment Pt agrees to sponge bath. Pt supine->sitting EOB SBA. Pt had staple come out from R LE. Nrsg notified, area bandaged. Pt completed sponge bath cleansing all UB and upper L leg, declined cleansing buttock/arline area. Oral care sitting EOB supplies gathered. Pt donned UB dressing after set up. Min A given to don LB dressing with pt needing assist to thread pants over R stump, needed assist hiking over hips while pt scooted back and forth on bed. After session, pt in bed with HOB raised, call light/phone within reach. All needs met in room. Therapy Code Descriptions/Definitions Functional [place] Measure: 0=Not Assessed/NA 4=Minimal Assistance 1=Total Assistance 5=Supervision or Setup 2=Maximal Assistance 6=Modified [place] 3=Moderate Assistance 7=Complete IndependenceSCALE: Activities may be completed with or without assistive devices. 9-Wpccpowqyj-qxwddyp completes the activity by him/herself with no assistance from a helper. 5-Set-up or Clean-up Assistance-helper sets up or cleans up; patient completes activity. [place] assists only prior to or following the activity. 4-Supervision or Touching Assistance-helper provides verbal cues and/or touching/steadying and/or contact guard assistance as patient completes activity. Assistance may be provided throughout the activity or intermittently. 3-Partial/Moderate Assistance-helper does LESS THAN HALF the effort. [place] lifts, holds or supports trunk or limbs, but provides less than half the effort. 2-Substantial/Maximal Assistance-helper does MORE THAN HALF the effort. [place] lifts or holds trunk or limbs and provides more than half the effort. 2-Kztelddjv-sqmytg does ALL the effort. Patient does none of the effort to complete the activity. Or, the assistance of 2 or more helpers is required for the patient to complete the activity. If activity was not attempted, code reason: 7-Patient Refused. 9-Not Applicable-not attempted and the patient did not perform the activity befo re the current illness, exacerbation or injury. 10-Not Attempted due to Environmental Limitations-(lack of equipment, weather re straints, etc.). 88-Not Attempted due to Medical Conditions or Safety Concerns. Eating (QC): 6 (Pt able to open containers and use regular utensils while seated in bed.) Bathing Location: L Arm, R Arm, R Upper Leg, Chest, Abdomen Upper Body Dressing (QC): 5 (Set up) Lower Body Dressing (QC): 3 (Mod A) OT Short Term Goals Short Term Goals Time Frame: Sep 23, 2021 Toileting hygiene: 3 Shower/bathe self: 3 Lower body dressin Putting on/taking off footwear: 3 OT Mcfp Goals Mcfp Goals Time Frame: Oct 09, 2021 Eating (QC): 6 Oral Hygiene (QC): 6 Toileting Hygiene (QC): 4 Shower/Bathe Self (QC): 4 Upper Body Dressing (QC): 6 Lower Body Dressing (QC): 4 On/Off Footwear (QC): 5 (LLE prosthesis only) Additional Goals: 1-Demonstrate ADL Tasks, 2-Verbalize Understanding, 3- ImproveStrength/Julisa 1=Demonstrate adherence to instructed precautions during ADL tasks. 2=Patient will verbalize/demonstrate understanding of assistive devices/modifications for ADL. 3=Patient will improve strength/tolerance for activity to enable patient to perform ADL's. OT Education/Plan Problem List/Assessment Assessment: Impaired Funct Balance, Impaired Self-Care Skills Discharge Recommendations Plan/Recommendations: Continue POC Treatment Plan/Plan of Care Patient would benefit from OT for education, treatment and training to promote independence in ADL's, mobility, safety and/or upper extremity function for ADL's. Plan of Care: ADL Retraining, Functional Mobility, Group Exercise/Act as Ind, UE Funct Exercise/Act Treatment Duration: Oct 09, 2021 Frequency: At least 5 of 7 days/Wk (IRF) Estimated Hrs Per Day: 1.5 hours per day Rehab Potential: Fair Time/GCodes Start Time: 07:00 Stop Time: 08:00 Total Time Billed (hr/min): 60 Billed Treatment Time 1 Visit- ADL 4 (60 min) RAMIN FAULKNER Sep 18, 2021 07:57
--- NOTE | 2021-09-18 09:29 | Physical Therapy Daily Note ---
PT Daily Note-Current Subjective Patient in bed pre tx, agrees to PT, has no complaints of pain. Patient dons prosthetic leg with assist. Appearance Patient in WC at bedside post tx with nurse call, phone, tray, all needs met. Mental Status Patient Orientation: Person, Place, Situation Transfers SCALE: Activities may be completed with or without assistive devices. 4-Ykwkldvcee-dgoxlib completes the activity by him/herself with no assistance from a helper. 5-Set-up or Clean-up Assistance-helper sets up or cleans up; patient completes activity. [place] assists only prior to or following the activity. 4-Supervision or Touching Assistance-helper provides verbal cues and/or touching/steadying and/or contact guard assistance as patient completes activity. Assistance may be provided throughout the activity or intermittently. 3-Partial/Moderate Assistance-helper does LESS THAN HALF the effort. [place] lifts, holds or supports trunk or limbs, but provides less than half the effort. 2-Substantial/Maximal Assistance-helper does MORE THAN HALF the effort. [place] lifts or holds trunk or limbs and provides more than half the effort. 2-Dmidaixsf-gwgpkv does ALL the effort. Patient does none of the effort to complete the activity. Or, the assistance of 2 or more helpers is required for the patient to complete the activity. If activity was not attempted, code reason: 7-Patient Refused. 9-Not Applicable-not attempted and the patient did not perform the activity before the current illness, exacerbation or injury. 10-Not Attempted due to Environmental Limitations-(lack of equipment, weather restraints, etc.). 88-Not Attempted due to Medical Conditions or Safety Concerns. Roll Left & Right (QC): 6 Lying to Sitting/Side of Bed(Q: 6 Chair/Vwg-wh-Psrmy Xfer(QC): 2 sliding board transfer max assist. Patient has much more difficulty with transfer this morning, his arms seem weaker. Wheelchair Training Does the Pt Use a Wheelchair?: Yes Wheel 50 ft with 2 turns (QC): 5 Wheel 150 ft (QC): 5 Type of Wheelchair: Manual 400', slow, needs frequent rest breaks Exercises chair pushups 3 sets of 10 (patient cannot clear his bottom from the chair), manually resisted leg press left leg with prosthesis 3 sets of 10 Treatments bed mobility and transfers, strengthening, WC mobility Assessment Current Status: Poor Progress Patient is not progressing well with transfers PT Short Term Goals Short Term Goals Time Frame: Sep 16, 2021 Roll Left & Right: 6 Sit to lyin Lying to sitting on side of be: 4 Sit to stand: 3 Chair/qcn-cd-bnhqd transfer: 4 PT Internal Grinder Goals Jail Goals PT Jail Goals Time Frame: Sep 30, 2021 Roll Left & Right (QC): 6 Sit to Lying (QC): 6 Lying-Sitting on Side/Bed(QC): 6 Sit to Stand (QC): 4 Chair/Awq-hl-Wtlgn Xfer(QC): 4 Toilet Transfer (QC): 4 Car Transfer (QC): 3 Does the Patient Walk: No and Walking Goal NOT indicated Walk 10 feet (QC): 88 Walk 50ft with 2 Turns (QC): 88 Walk 150 ft (QC): 88 Walking 10ft on Uneven Surface: 88 1 Step (curb) (QC): 88 4 Steps (QC): 88 12 Steps (QC): 88 Picking up an Object (QC): 6 Wheel 50 feet with 2 turns (QC: 6 Wheel 150 feet: 6 PT Plan Problem List Problem List: Activity Tolerance, Functional Strength, Safety, Balance, Gait, Transfer, Bed Mobility, ROM Treatment/Plan Treatment Plan: Continue Plan of Care Treatment Plan: Bed Mobility, Education, Functional Activity Julisa, Functional Strength, Group Therapy, Gait, Safety, Therapeutic Exercise, Transfers Treatment Duration: Sep 30, 2021 Frequency: At least 5 of 7 days/Wk (IRF) Estimated Hrs Per Day: 1.5 hours per day Patient and/or Family Agrees t: Yes Safety Risks/Education Patient Education: Transfer Techniques, Correct Positioning, W/C Management, Safety Issues Teaching Recipient: Patient Teaching Methods: Demonstration, Discussion Response to Teaching: Reinforcement Needed Time/GCodes Time In: 829 Time Out: 929 Total Billed Treatment Time: 60 Total Billed Treatment 1 visit EX 30' FA 30' NEFTALY MITCHELL PT Sep 18, 2021 09:29
--- NOTE | 2021-09-18 12:12 | PM&R Progress Note ---
Subjective HPI/CC On Admission Date Seen by Provider: Sep 18, 2021 Time Seen by Provider: 12:20 Subjective/Events-last exam 09/18/21: Patient doing well Tearful at times Pain controlled BM 09/17/21 DC next week 09/17/2021: Bowels are moving Patient doing really well Improved overall Transfers are not smooth but goal oriented Psych eval at 1 PM 09/16/2021: Pt doing okay In good spirits today Psych eval scheduled for tomorrow Discharge is planned for Tuesday09/15/2021: Pt still max assist but participating in therapy Behavioral health consult ordered Overall very flat affect 09/14/2021: Pt doing well Creatinine 2 Potassium 5.6- no medication can retain Potassium that I reviewed Hgb 8.6 Overall very flat affect and depressed 09/13/21: Patient doing well Tearful at times at bedside Behavioral consult will be performed [employer] [facility] [facility] will be pursued by 09/12/21: Patient doing well Haile are ok BM + Pain reported but is controlled 09/11/21: Patient doing well Wrapping stump with LISSY wraps Pain controlled BM+ 09/10/2021: Patient doing well Pain medication maintained Remains max assist Accu-Cheks are good Hemoglobin 8.3 Creatinine 1.69 Bowels are moving Participating in all therapy Review of Systems General: Fatigue, Malaise Musculoskeletal: leg pain Objective Exam Vital Signs Vital Signs Date Time Temp Pulse Resp B/P (MAP) Pulse Ox O2 Delivery O2 Flow Rate FiO2 09/18/21 20:00 Room Air 09/18/21 19:28 36.6 76 20 168/73 (104) 97 Capillary Refill : General Appearance: No Apparent Distress, WD/WN, Chronically ill, Obese HEENT: PERRL/EOMI, Normal ENT Inspection, Pharynx Normal Neck: Full Range of Motion, Normal Inspection, Non Tender, Supple, Carotid Bruit Respiratory: Chest Non Tender, Lungs Clear, Normal Breath Sounds, No Accessory Muscle Use, No Respiratory Distress Cardiovascular: Regular Rate, Rhythm, No Edema, No Gallop, No JVD, No Murmur, Normal Peripheral Pulses Gastrointestinal: Normal Bowel Sounds, No Organomegaly, No Pulsatile Mass, Non Tender, Soft Back: Normal Inspection, No CVA Tenderness, No Vertebral Tenderness Extremity: Normal Capillary Refill, Normal Inspection, Normal Range of Motion, Non Tender, No Calf Tenderness, Other (right AKA haile in place, left BKA) Neurologic/Psychiatric: Alert, Oriented x3, No Motor/Sensory Deficits, Normal Mood/Affect Skin: Normal Color, Warm/Dry Lymphatic: No Adenopathy Results/Procedures Lab Patient resulted labs reviewed. FIM Transfers Therapy Code Descriptions/Definitions Functional [place] Measure: 0=Not Assessed/NA 4=Minimal Assistance 1=Total Assistance 5=Supervision or Setup 2=Maximal Assistance 6=Modified [place] 3=Moderate Assistance 7=Complete IndependenceSCALE: Activities may be completed with or without assistive devices. 2-Qbdetaskox-tyxqcsm completes the activity by him/herself with no assistance from a helper. 5-Set-up or Clean-up Assistance-helper sets up or cleans up; patient completes activity. [place] assists only prior to or following the activity. 4-Supervision or Touching Assistance-helper provides verbal cues and/or touching/steadying and/or contact guard assistance as patient completes activity. Assistance may be provided throughout the activity or intermittently. 3-Partial/Moderate Assistance-helper does LESS THAN HALF the effort. [place] lifts, holds or supports trunk or limbs, but provides less than half the effort. 2-Substantial/Maximal Assistance-helper does MORE THAN HALF the effort. [place] lifts or holds trunk or limbs and provides more than half the effort. 1-Udwkobqyr-vwckfk does ALL the effort. Patient does none of the effort to complete the activity. Or, the assistance of 2 or more helpers is required for the patient to complete the activity. If activity was not attempted, code reason: 7-Patient Refused. 9-Not Applicable-not attempted and the patient did not perform the activity before the current illness, exacerbation or injury. 10-Not Attempted due to Environmental Limitations-(lack of equipment, weather restraints, etc.). 88-Not Attempted due to Medical Conditions or Safety Concerns. Roll Left to Right (QC): 6 Sit to Lying (QC): 5 Sit to Stand (QC): 2 Chair/Qlc-fy-Bpkbs Xfer(QC): 2 Car Transfer (QC): 88 Gait Training Does the Patient Walk?: No and Walking Goal IS indicated Walk 10 feet (QC): 88 Walk 50 ft with 2 Turns(QC): 88 Walk 150 ft (QC): 88 Walking 10ft/uneven surface-QC: 88 Wheelchair Training Does the Pt Use a Wheelchair?: Yes Wheel 50 ft with 2 turns (QC): 5 Wheel 150 ft (QC): 5 Type of Wheelchair: Manual Stair Training 1 Step (curb) (QC): 88 4 Steps (QC): 88 12 Steps (QC): 88 Balance Picking up an Object (QC): 6 ADL-Treatment Eating (QC): 6 (Pt able to open containers and use regular utensils while seated in bed.) Bathing Location: L Arm, R Arm, R Upper Leg, Chest, Abdomen Shower/Bathe Self (QC): 4 (SBA while pt completes shower.) Upper Body Dressing (QC): 5 (Set up) Lower Body Dressing (QC): 3 (Mod A) On/Off Footwear (QC): 88 Toileting Hygiene (QC): 2 Assessment/Plan Assessment and Plan Assess & Plan/Chief Complaint Assessment: s/p right AKA due to osteomyelitis Remote hx of left BKA DM HTN HLP Recent psychosis CKD Smoker Obesity Situational depression seeking counseling Plan: Monitor closely DM management Pain control IRF protocol 09/10/2021: Continue aggressive therapy Monitor blood sugars 09/11/21: DC accuchecks Monitor pain 09/12/21: Monitor closely Pain controlled 09/13/21: Needs counseling Monitor labs Pain control 09/14/2021: Depression management 09/15/2021: Aggressive therapy Behavioral health consult 09/16/2021: Psych eval Discharge plan for next week 09/17/2021: Supportive care Psych care 09/18/21: Slow recovery PT OT (1) S/P AKA (above knee amputation) (2) Diabetes (3) History of left below knee amputation (4) Psychosis (5) CKD (chronic kidney disease) AFTAB BENZ DO Sep 18, 2021 12:12
--- NOTE | 2021-09-18 14:31 | Therapy Group Daily Note ---
Therapy Daily Group Note Patient Education Topic Fall Prevention, Home Safety, Other List Below (balance) Exercises LE Seated Exercise, UE Exercise Session Ratio (pt:therapist): 4:1 Goal of Session: Education on ARU Expectations, Safety with Transfers, Other (list) (balance) Goal Met for this Session: Yes Pt Benefit of Group: Contributions to Others, F/U Use of Strategies @Home, Increased Functional Safety, Increased Functional Strength, Improved Cognition, Recognition of Peers, Socialization Other/Notes Pt transported via w/c to [facility] are for OT/PT group. Group consisted of introductions(name, place living, favorite Thanksgiving dessert), socialization, pt led B UE/LE seated exercises, and educational topics (balance, fall prevention, ARU description/expectations). Pt introduced self appropriately and actively listened to peers. Pt able to complete pt led B UE/LE exercises with modifications due to medical issues. Pt acknowledged understanding of edu cational topics by giving own personal strategies and affirmative gestures. After session, pt lying in bed with call light/phone in reach. All needs met in room. Start Time: 13:00 Stop Time: 14:00 Total Billed Treatment Time: 60 Total Billed Treatment 1-GRP RAMIN FAULKNER Sep 18, 2021 14:31
[2021-09-18] MEDS: DOCUSATE SODIUM 100 MG (COLACE) CAP PO SCH ×2 (17:10→17:16)
[2021-09-18] MEDS: polyethylene glycoL POWDER 17 GM (MIRALAX) PACK PO SCH ×2 (17:10→21:12)
[2021-09-18] MEDS: SENNA W/DOCUSATE (SENOKOT S) TABLET PO SCH ×2 (17:10→17:16)
[2021-09-18 19:28] VITALS: BP 168/73
[2021-09-18] MEDS ORDERED: MELATONIN 3 MG TABLET PO PRN (20:45)
[2021-09-19 07:30] VITALS: BP 150/65
[2021-09-19] MEDS: SENNA W/DOCUSATE (SENOKOT S) TABLET PO SCH ×2 (08:30→19:57)
[2021-09-19] MEDS: FERROUS SULF 325 MG (IRON) TAB PO SCH (08:30)
[2021-09-19] MEDS: polyethylene glycoL POWDER 17 GM (MIRALAX) PACK PO SCH ×2 (08:30→19:57)
[2021-09-19] MEDS: CLOPIDOGREL 75 MG (PLAVIX) TABLET PO SCH (08:30)
[2021-09-19] MEDS: ASPIRIN E.C. 81 MG (ECOTRIN) TAB PO SCH (08:30)
[2021-09-19] MEDS: DOCUSATE SODIUM 100 MG (COLACE) CAP PO SCH ×2 (08:30→19:56)
[2021-09-19] MEDS: AtorvaSTATin TABLET 10 MG TABLET PO SCH (08:30)
[2021-09-19] MEDS: amLODIPine 10 MG (NORVASC) TAB PO SCH (08:30)
--- NOTE | 2021-09-19 08:53 | Physical Therapy Daily Note ---
PT Daily Note-Current Subjective States that he doesn't feel like doing anything other than bed exercise. Transfers SCALE: Activities may be completed with or without assistive devices. 0-Gzuwfhltgp-yiznfvs completes the activity by him/herself with no assistance from a helper. 5-Set-up or Clean-up Assistance-helper sets up or cleans up; patient completes activity. [place] assists only prior to or following the activity. 4-Supervision or Touching Assistance-helper provides verbal cues and/or touching/steadying and/or contact guard assistance as patient completes activity. Assistance may be provided throughout the activity or intermittently. 3-Partial/Moderate Assistance-helper does LESS THAN HALF the effort. [place] lifts, holds or supports trunk or limbs, but provides less than half the effort. 2-Substantial/Maximal Assistance-helper does MORE THAN HALF the effort. [place] lifts or holds trunk or limbs and provides more than half the effort. 1-Xmssaxqtz-fjinun does ALL the effort. Patient does none of the effort to complete the activity. Or, the assistance of 2 or more helpers is required for the patient to complete the activity. If activity was not attempted, code reason: 7-Patient Refused. 9-Not Applicable-not attempted and the patient did not perform the activity before the current illness, exacerbation or injury. 10-Not Attempted due to Environmental Limitations-(lack of equipment, weather restraints, etc.). 88-Not Attempted due to Medical Conditions or Safety Concerns. Exercises Supine Ex: LE Protocol Supine Reps: 15 Assessment Current Status: Good Progress No complaints with bed exercises. PT Short Term Goals Short Term Goals Time Frame: Sep 16, 2021 Roll Left & Right: 6 Sit to lyin Lying to sitting on side of be: 4 Sit to stand: 3 Chair/zds-bs-adhce transfer: 4 PT Electrician Constructor Supervisor Goals Electrician Constructor Supervisor Goals PT Electrician Constructor Supervisor Goals Time Frame: Sep 30, 2021 Roll Left & Right (QC): 6 Sit to Lying (QC): 6 Lying-Sitting on Side/Bed(QC): 6 Sit to Stand (QC): 4 Chair/Pjy-kr-Yflya Xfer(QC): 4 Toilet Transfer (QC): 4 Car Transfer (QC): 3 Does the Patient Walk: No and Walking Goal NOT indicated Walk 10 feet (QC): 88 Walk 50ft with 2 Turns (QC): 88 Walk 150 ft (QC): 88 Walking 10ft on Uneven Surface: 88 1 Step (curb) (QC): 88 4 Steps (QC): 88 12 Steps (QC): 88 Picking up an Object (QC): 6 Wheel 50 feet with 2 turns (QC: 6 Wheel 150 feet: 6 PT Plan Treatment/Plan Treatment Plan: Continue Plan of Care Treatment Plan: Bed Mobility, Education, Functional Activity Julisa, Functional Strength, Group Therapy, Gait, Safety, Therapeutic Exercise, Transfers Treatment Duration: Sep 30, 2021 Frequency: At least 5 of 7 days/Wk (IRF) Estimated Hrs Per Day: 1.5 hours per day Patient and/or Family Agrees t: Yes Time/GCodes Time In: 934 Time Out: 944 Total Billed Treatment Time: 10 Total Billed Treatment 1, EX x 10' MARGARITO ZARAGOZA PT Sep 19, 2021 08:53
--- NOTE | 2021-09-19 11:44 | PM&R Progress Note ---
Subjective HPI/CC On Admission Date Seen by Provider: Sep 19, 2021 Time Seen by Provider: 12:00 Subjective/Events-last exam 09/19/2021: Patient doing well Sleeps a lot Increase melatonin last night at his request After rounds nurse tells me that he wants to go home on Tuesday rather than Tuesday09/18/21: Patient doing well Tearful at times Pain controlled BM 09/17/21 DC next week 09/17/2021: Bowels are moving Patient doing really well Improved overall Transfers are not smooth but goal oriented Psych eval at 1 PM 09/16/2021: Pt doing okay In good spirits today Psych eval scheduled for tomorrow Discharge is planned for Tuesday09/15/2021: Pt still max assist but participating in therapy Behavioral health consult ordered Overall very flat affect 09/14/2021: Pt doing well Creatinine 2 Potassium 5.6- no medication can retain Potassium that I reviewed Hgb 8.6 Overall very flat affect and depressed 09/13/21: Patient doing well Tearful at times at bedside Behavioral consult will be performed [employer] will be pursued by 09/12/21: Patient doing well [place] are ok BM + Pain reported but is controlled 09/11/21: Patient doing well Wrapping stump with LISSY wraps Pain controlled BM+ 09/10/2021: Patient doing well Pain medication maintained Remains max assist Accu-Cheks are good Hemoglobin 8.3 Creatinine 1.69 Bowels are moving Participating in all therapy Review of Systems General: Fatigue, Malaise Musculoskeletal: leg pain Objective Exam Vital Signs Vital Signs Date Time Temp Pulse Resp B/P (MAP) Pulse Ox O2 Delivery O2 Flow Rate FiO2 09/19/21 21:04 Room Air 09/19/21 20:19 36.6 78 18 124/71 (88) 99 Capillary Refill : General Appearance: No Apparent Distress, WD/WN, Chronically ill, Obese HEENT: PERRL/EOMI, Normal ENT Inspection, Pharynx Normal Neck: Full Range of Motion, Normal Inspection, Non Tender, Supple, Carotid Brui t Respiratory: Chest Non Tender, Lungs Clear, Normal Breath Sounds, No Accessory Muscle Use, No Respiratory Distress Cardiovascular: Regular Rate, Rhythm, No Edema, No Gallop, No JVD, No Murmur, Normal Peripheral Pulses Gastrointestinal: Normal Bowel Sounds, No Organomegaly, No Pulsatile Mass, Non Tender, Soft Back: Normal Inspection, No CVA Tenderness, No Vertebral Tenderness Extremity: Normal Capillary Refill, Normal Inspection, Normal Range of Motion, Non Tender, No Calf Tenderness, Other (right AKA haile in place, left BKA) Neurologic/Psychiatric: Alert, Oriented x3, No Motor/Sensory Deficits, Normal Mood/Affect Skin: Normal Color, Warm/Dry Lymphatic: No Adenopathy Results/Procedures Lab Patient resulted labs reviewed. FIM Transfers Therapy Code Descriptions/Definitions Functional [place] Measure: 0=Not Assessed/NA 4=Minimal Assistance 1=Total Assistance 5=Supervision or Setup 2=Maximal Assistance 6=Modified [place] 3=Moderate Assistance 7=Complete IndependenceSCALE: Activities may be completed with or without assistive devices. 6-Rdwrojaayo-hylqczb completes the activity by him/herself with no assistance from a helper. 5-Set-up or Clean-up Assistance-helper sets up or cleans up; patient completes activity. [place] assists only prior to or following the activity. 4-Supervision or Touching Assistance-helper provides verbal cues and/or touching/steadying and/or contact guard assistance as patient completes activity . Assistance may be provided throughout the activity or intermittently. 3-Partial/Moderate Assistance-helper does LESS THAN HALF the effort. [place] lifts, holds or supports trunk or limbs, but provides less than half the effort. 2-Substantial/Maximal Assistance-helper does MORE THAN HALF the effort. [place] lifts or holds trunk or limbs and provides more than half the effort. 2-Jdejintlz-rgetyk does ALL the effort. Patient does none of the effort to complete the activity. Or, the assistance of 2 or more helpers is required for the patient to complete the activity. If activity was not attempted, code reason: 7-Patient Refused. 9-Not Applicable-not attempted and the patient did not perform the activity before the current illness, exacerbation or injury. 10-Not Attempted due to Environmental Limitations-(lack of equipment, weather restraints, etc.). 88-Not Attempted due to Medical Conditions or Safety Concerns. Roll Left to Right (QC): 6 Sit to Lying (QC): 5 Sit to Stand (QC): 2 Chair/Sic-sk-Qozll Xfer(QC): 2 Car Transfer (QC): 88 Gait Training Does the Patient Walk?: No and Walking Goal IS indicated Walk 10 feet (QC): 88 Walk 50 ft with 2 Turns(QC): 88 Walk 150 ft (QC): 88 Walking 10ft/uneven surface-QC: 88 Wheelchair Training Does the Pt Use a Wheelchair?: Yes Wheel 50 ft with 2 turns (QC): 5 Wheel 150 ft (QC): 5 Type of Wheelchair: Manual Stair Training 1 Step (curb) (QC): 88 4 Steps (QC): 88 12 Steps (QC): 88 Balance Picking up an Object (QC): 6 ADL-Treatment Eating (QC): 6 (Pt able to open containers and use regular utensils while seated in bed.) Bathing Location: L Arm, R Arm, R Upper Leg, Chest, Abdomen Shower/Bathe Self (QC): 4 (SBA while pt completes shower.) Upper Body Dressing (QC): 5 (Set up) Lower Body Dressing (QC): 3 (Mod A) On/Off Footwear (QC): 88 Toileting Hygiene (QC): 2 Assessment/Plan Assessment and Plan Assess & Plan/Chief Complaint Assessment: s/p right AKA due to osteomyelitis Remote hx of left BKA DM HTN HLP Recent psychosis CKD Smoker Obesity Situational depression seeking counseling Plan: Monitor closely DM management Pain control IRF protocol 09/10/2021: Continue aggressive therapy Monitor blood sugars 09/11/21: DC accuchecks Monitor pain 09/12/21: Monitor closely Pain controlled 09/13/21: Needs counseling Monitor labs Pain control 09/14/2021: Depression management 09/15/2021: Aggressive therapy Behavioral health consult 09/16/2021: Psych eval Discharge plan for next week 09/17/2021: Supportive care Psych care 09/18/21: Slow recovery PT OT 09/19/2021: Slow recovery (1) S/P AKA (above knee amputation) (2) Diabetes (3) History of left below knee amputation (4) Psychosis (5) CKD (chronic kidney disease) AFTAB BENZ DO Sep 19, 2021 11:44
[2021-09-19 20:19] VITALS: BP 124/71
[2021-09-20 07:27] VITALS: BP 139/61
[2021-09-20] MEDS: amLODIPine 10 MG (NORVASC) TAB PO SCH (08:16)
[2021-09-20] MEDS: DOCUSATE SODIUM 100 MG (COLACE) CAP PO SCH ×2 (08:16→19:33)
[2021-09-20] MEDS: AtorvaSTATin TABLET 10 MG TABLET PO SCH (08:16)
[2021-09-20] MEDS: FERROUS SULF 325 MG (IRON) TAB PO SCH (08:16)
[2021-09-20] MEDS: ASPIRIN E.C. 81 MG (ECOTRIN) TAB PO SCH (08:16)
[2021-09-20] MEDS: CLOPIDOGREL 75 MG (PLAVIX) TABLET PO SCH (08:16)
[2021-09-20] MEDS: polyethylene glycoL POWDER 17 GM (MIRALAX) PACK PO SCH ×2 (08:17→19:34)
[2021-09-20] MEDS: SENNA W/DOCUSATE (SENOKOT S) TABLET PO SCH ×2 (08:18→19:34)
--- NOTE | 2021-09-20 11:37 | PM&R Progress Note ---
Subjective HPI/CC On Admission Date Seen by Provider: Sep 20, 2021 Time Seen by Provider: 11:40 Subjective/Events-last exam 09/20/2021: Patient doing well Wants to go home tomorrow instead of Tuesday Does not want to have behavioral health consult anymore Vascular surgeon appointment on Tuesday09/19/2021: Patient doing well Sleeps a lot Increase melatonin last night at his request After rounds nurse tells me that he wants to go home on Tuesday rather than Tuesday09/18/21: Patient doing well Tearful at times Pain controlled BM 09/17/21 DC next week 09/17/2021: Bowels are moving Patient doing really well Improved overall Transfers are not smooth but goal oriented Psych eval at 1 PM 09/16/2021: Pt doing okay In good spirits today Psych eval scheduled for tomorrow Discharge is planned for Tuesday09/15/2021: Pt still max assist but participating in therapy Behavioral health consult ordered Overall very flat affect 09/14/2021: Pt doing well Creatinine 2 Potassium 5.6- no medication can retain Potassium that I reviewed Hgb 8.6 Overall very flat affect and depressed 09/13/21: Patient doing well Tearful at times at bedside Behavioral consult will be performed [employer] will be pursued by 09/12/21: Patient doing well [place] are ok BM + Pain reported but is controlled 09/11/21: Patient doing well Wrapping stump with LISSY wraps Pain controlled BM+ 09/10/2021: Patient doing well Pain medication maintained Remains max assist Accu-Cheks are good Hemoglobin 8.3 Creatinine 1.69 Bowels are moving Participating in all therapy Review of Systems Musculoskeletal: leg pain Objective Exam Vital Signs Vital Signs Date Time Temp Pulse Resp B/P (MAP) Pulse Ox O2 Delivery O2 Flow Rate FiO2 09/20/21 20:05 Room Air 09/20/21 19:05 36.8 79 13 144/64 (90) 98 Capillary Refill : General Appearance: No Apparent Distress, WD/WN, Chronically ill, Obese HEENT: PERRL/EOMI, Normal ENT Inspection, Pharynx Normal Neck: Full Range of Motion, Normal Inspection, Non Tender, Supple, Carotid Bruit Respiratory: Chest Non Tender, Lungs Clear, Normal Breath Sounds, No Accessory Muscle Use, No Respiratory Distress Cardiovascular: Regular Rate, Rhythm, No Edema, No Gallop, No JVD, No Murmur, Normal Peripheral Pulses Gastrointestinal: Normal Bowel Sounds, No Organomegaly, No Pulsatile Mass, Non Tender, Soft Back: Normal Inspection, No CVA Tenderness, No Vertebral Tenderness Extremity: Normal Capillary Refill, Normal Inspection, Normal Range of Motion, Non Tender, No Calf Tenderness, Other (right AKA haile in place, left BKA) Neurologic/Psychiatric: Alert, Oriented x3, No Motor/Sensory Deficits, Normal Mood/Affect Skin: Normal Color, Warm/Dry Lymphatic: No Adenopathy Results/Procedures Lab Patient resulted labs reviewed. FIM Transfers Therapy Code Descriptions/Definitions Functional [place] Measure: 0=Not Assessed/NA 4=Minimal Assistance 1=Total Assistance 5=Supervision or Setup 2=Maximal Assistance 6=Modified [place] 3=Moderate Assistance 7=Complete IndependenceSCALE: Activities may be completed with or without assistive devices. 5-Qkdzrolskz-roegfca completes the activity by him/herself with no assistance from a helper. 5-Set-up or Clean-up Assistance-helper sets up or cleans up; patient completes activity. [place] assists only prior to or following the activity. 4-Supervision or Touching Assistance-helper provides verbal cues and/or touching/steadying and/or contact guard assistance as patient completes activity. Assistance may be provided throughout the activity or intermittently. 3-Partial/Moderate Assistance-helper does LESS THAN HALF the effort. [place] lifts, holds or supports trunk or limbs, but provides less than half the effort. 2-Substantial/Maximal Assistance-helper does MORE THAN HALF the effort. [place] lifts or holds trunk or limbs and provides more than half the effort. 4-Nzrpmcbvl-ozmupl does ALL the effort. Patient does none of the effort to complete the activity. Or, the assistance of 2 or more helpers is required for the patient to complete the activity. If activity was not attempted, code reason: 7-Patient Refused. 9-Not Applicable-not attempted and the patient did not perform the activity before the current illness, exacerbation or injury. 10-Not Attempted due to Environmental Limitations-(lack of equipment, weather restraints, etc.). 88-Not Attempted due to Medical Conditions or Safety Concerns. Roll Left to Right (QC): 6 Sit to Lying (QC): 5 Sit to Stand (QC): 2 Chair/Ocr-pe-Elwlh Xfer(QC): 2 Car Transfer (QC): 88 Gait Training Does the Patient Walk?: No and Walking Goal IS indicated Walk 10 feet (QC): 88 Walk 50 ft with 2 Turns(QC): 88 Walk 150 ft (QC): 88 Walking 10ft/uneven surface-QC: 88 Wheelchair Training Does the Pt Use a Wheelchair?: Yes Wheel 50 ft with 2 turns (QC): 5 Wheel 150 ft (QC): 5 Type of Wheelchair: Manual Stair Training 1 Step (curb) (QC): 88 4 Steps (QC): 88 12 Steps (QC): 88 Balance Picking up an Object (QC): 6 ADL-Treatment Eating (QC): 6 (Pt able to open containers and use regular utensils while s eated in bed.) Bathing Location: L Arm, R Arm, R Upper Leg, Chest, Abdomen Shower/Bathe Self (QC): 4 (SBA while pt completes shower.) Upper Body Dressing (QC): 5 (Set up) Lower Body Dressing (QC): 3 (Mod A) On/Off Footwear (QC): 88 Toileting Hygiene (QC): 2 Assessment/Plan Assessment and Plan Assess & Plan/Chief Complaint Assessment: s/p right AKA due to osteomyelitis Remote hx of left BKA DM HTN HLP Recent psychosis CKD Smoker Obesity Situational depression seeking counseling Plan: Monitor closely DM management Pain control IRF protocol 09/10/2021: Continue aggressive therapy Monitor blood sugars 09/11/21: DC accuchecks Monitor pain 09/12/21: Monitor closely Pain controlled 09/13/21: Needs counseling Monitor labs Pain control 09/14/2021: Depression management 09/15/2021: Aggressive therapy Behavioral health consult 09/16/2021: Psych eval Discharge plan for next week 09/17/2021: Supportive care Psych care 09/18/21: Slow recovery PT OT 09/19/2021: Slow recovery 09/20/2021: Supportive care Discharge home tomorrow (1) S/P AKA (above knee amputation) (2) Diabetes (3) History of left below knee amputation (4) Psychosis (5) CKD (chronic kidney disease) AFTAB BENZ DO Sep 20, 2021 11:37
[2021-09-20 19:05] VITALS: BP 144/64
[2021-09-21] MEDS ORDERED: CLOP75TA28 PO (05:20)
[2021-09-21] MEDS ORDERED: FURO40TA4 PO (05:20)
[2021-09-21] MEDS ORDERED: ATOR10TA66 PO (05:20)
[2021-09-21] MEDS ORDERED: HYDR-3817 PO (05:20)
[2021-09-21] MEDS ORDERED: AMLO-250 PO (05:20)
--- NOTE | 2021-09-21 05:22 | D/C HH Face to Face Order ---
D/C HH Face to Face Orders Reconcile Patient Problems Problems Reviewed?: Yes Instructions for Patient HH Patient Instructions/FollowUp: PCP 2 weeks Physician to follow Patient: PCP Discharge Diet for Home: ADA Diet Patient Problems: Right AKA Patient Data-Allergies,Ht & Wt Patient Allergies: Coded Allergies: canagliflozin (Verified Allergy, Mild, Diarrhea, 09/09/21) dapagliflozin (Verified Allergy, Mild, Diarrhea, 09/09/21) diphenhydramine (Verified Allergy, Mild, Itching, 09/09/21) dulaglutide (Verified Allergy, Mild, Diarrhea, 09/09/21) hydrochlorothiazide (Verified Allergy, Mild, Diarrhea, 09/09/21) liraglutide (Verified Allergy, Mild, Diarrhea, 09/09/21) lisinopril (Verified Allergy, Mild, 09/09/21) cough metformin (Verified Allergy, Mild, Diarrhea, 09/09/21) Home Health Need/Face to Face Date of Face to Face: Sep 21, 2021 Clinical Findings: Generalized weakness and fatigue, Instability, Muscle weakness, Unsteady gait I have seen Pt cdkw-zv-zyos: Yes Discharged To: Home Diagnosis/Conditions: Right LUCÍA Patient is Homebound due to: [place] fall risk due to instabilty, Non-weight bearing Homebound Status Due to the above stated illness, injury or surgical procedure (medical condition or diagnosis) and associated clinical findings, the patient is homebound because of his/her inability to leave home except with aid of a supportive device and/or person AND leaving the home requires a considerable and taxing effort or is medically contraindicated. Pt req the following assistanc: Wheelchair Home Health Nursing Orders Home Health Services Order: Nursing Services, [employer] [employer]-Evaluate & Treat, Physical Therapy-Evaluate & Treat Certify Stmt I certify that this patient is under my care and that I, a nurse practitioner or a physician; a patient clerical assistant working with me, had a face to face encounter that - meets the physician face to face encounter requirements with this patient as dated. AFTAB BENZ DO Sep 21, 2021 05:22
--- NOTE | 2021-09-21 05:36 | Discharge Summary ---
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 Remote hx of left BKA DM HTN HLP Recent psychosis CKD Smoker Obesity Situational depression seeking counseling Plan: Monitor closely DM management Pain control IRF protocol 09/10/2021: Continue aggressive therapy Monitor blood sugars 09/11/21: DC accuchecks Monitor pain 09/12/21: Monitor closely Pain controlled 09/13/21: Needs counseling Monitor labs Pain control 09/14/2021: Depression management 09/15/2021: Aggressive therapy Behavioral health consult 09/16/2021: Psych eval Discharge plan for next week 09/17/2021: Supportive care Psych care 09/18/21: Slow recovery PT OT 09/19/2021: Slow recovery 09/20/2021: Supportive care Discharge home tomorrow (1) S/P AKA (above knee amputation) (2) Diabetes (3) History of left below knee amputation (4) Psychosis (5) CKD (chronic kidney disease) Discharge Summary Discharge Physical Examination Allergies: Coded Allergies: canagliflozin (Verified Allergy, Mild, Diarrhea, 09/09/21) dapagliflozin (Verified Allergy, Mild, Diarrhea, 09/09/21) diphenhydramine (Verified Allergy, Mild, Itching, 09/09/21) dulaglutide (Verified Allergy, Mild, Diarrhea, 09/09/21) hydrochlorothiazide (Verified Allergy, Mild, Diarrhea, 09/09/21) liraglutide (Verified Allergy, Mild, Diarrhea, 09/09/21) lisinopril (Verified Allergy, Mild, 09/09/21) cough metformin (Verified Allergy, Mild, Diarrhea, 09/09/21) Vitals & I&Os Vital Signs Date Time Temp Pulse Resp B/P (MAP) Pulse Ox O2 Delivery O2 Flow Rate FiO2 09/21/21 13:00 36.2 68 16 143/69 98 Room Air General Appearance: Alert, Oriented X3, Cooperative Respiratory: Clear to Auscultation Cardiovascular: Regular Rate Psych/Mental Status: Mental Status NL Hospital Course Was the Problem List Reviewed?: Yes Hospital course: Patient had a lengthy hospital course for 13 days before discharge home with . Right central line remained stable. Depression was an issue behavioral consult was provided but he did not want to do anymore with that. Blood sugars remained stable so Accu-Cheks were discontinued. Overall his baseline activity was minimal at home and remained so. Prognosis fair to poor long-term due to apathy. Labs (last 24 hrs) Laboratory Tests 09/09/21 16:16: Glucometer 116H 09/09/21 20:31: Glucometer 141H 09/10/21 05:21: Glucometer 124H 09/10/21 05:45: White Blood Count 8.6, Red Blood Count 2.79L, Hemoglobin 8.3L, Hematocrit 27L, Mean Corpuscular Volume 96, Mean Corpuscular Hemoglobin 30, Mean Corpuscular Hemoglobin Concent 31L, Red Cell Distribution Width 16.0H, Platelet Count 400, Mean Platelet Volume 11.9, Immature Granulocyte % (Auto) 2, Neutrophils (%) (Auto) 62, Lymphocytes (%) (Auto) 23, Monocytes (%) (Auto) 11, Eosinophils (%) (Auto) 3, Basophils (%) (Auto) 1, Neutrophils # (Auto) 5.3, Lymphocytes # (Auto) 2.0, Monocytes # (Auto) 0.9, Eosinophils # (Auto) 0.2, Basophils # (Auto) 0.0, Immature Granulocyte # (Auto) 0.1, Sodium Level 139, Potassium Level 5.0, Chloride Level 108H, Carbon Dioxide Level 23, Anion Gap 8, Blood Urea Nitrogen 23H, Creatinine 1.69H, Estimat Glomerular Filtration Rate 42, BUN/Creatinine Ratio 14, Glucose Level 136H, Calcium Level 9.5, Corrected Calcium 10.7H, Total Bilirubin 0.3, Aspartate Amino Transf (AST/SGOT) 16, Alanine Aminotransferase (ALT/SGPT) < 6, Alkaline Phosphatase 90, Total Protein 7.0, Albumin 2.5L 09/10/21 10:54: Glucometer 106 09/10/21 15:41: Glucometer 119H 09/10/21 20:31: Glucometer 154H 09/11/21 05:13: Glucometer 116H 09/11/21 10:53: Glucometer 125H 09/11/21 15:20: Glucometer 120H 09/14/21 05:40: White Blood Count 9.4, Red Blood Count 2.91L, Hemoglobin 8.6L, Hematocrit 29L, Mean Corpuscular Volume 99, Mean Corpuscular Hemoglobin 30, Mean Corpuscular Hemoglobin Concent 30L, Red Cell Distribution Width 17.0H, Platelet Count 343, Mean Platelet Volume 12.2, Immature Granulocyte % (Auto) 1, Neutrophils (%) (Auto) 60, Lymphocytes (%) (Auto) 23, Monocytes (%) (Auto) 10, Eosinophils (%) (Auto) 5, Basophils (%) (Auto) 1, Neutrophils # (Auto) 5.6, Lymphocytes # (Auto) 2.1, Monocytes # (Auto) 1.0, Eosinophils # (Auto) 0.5H, Basophils # (Auto) 0.1, Immature Granulocyte # (Auto) 0.1, Sodium Level 139, Potassium Level 5.6H, Chloride Level 109H, Carbon Dioxide Level 23, Anion Gap 7, Blood Urea Nitrogen 33H, Creatinine 2.04H, Estimat Glomerular Filtration Rate 33, BUN/Creatinine Ratio 16, Glucose Level 148H, Calcium Level 9.6, Corrected Calcium 10.6H, Total Bilirubin 0.3, Aspartate Amino Transf (AST/SGOT) 18, Alanine Aminotransferase (ALT/SGPT) 7, Alkaline Phosphatase 114, Total Protein 7.2, Albumin 2.7L 09/21/21 07:22: White Blood Count 9.8, Red Blood Count 3.02L, Hemoglobin 9.1L, Hematocrit 29L, Mean Corpuscular Volume 97, Mean Corpuscular Hemoglobin 30, Mean Corpuscular Hemoglobin Concent 31L, Red Cell Distribution Width 16.2H, Platelet Count 325, Mean Platelet Volume 12.4H, Immature Granulocyte % (Auto) 1, Neutrophils (%) (Auto) 62, Lymphocytes (%) (Auto) 25, Monocytes (%) (Auto) 10, Eosinophils (%) (Auto) 2, Basophils (%) (Auto) 1, Neutrophils # (Auto) 6.1, Lymphocytes # (Auto) 2.4, Monocytes # (Auto) 1.0, Eosinophils # (Auto) 0.2, Basophils # (Auto) 0.1, Immature Granulocyte # (Auto) 0.1, Sodium Level 139, Potassium Level 5.2H, Chloride Level 112H, Carbon Dioxide Level 17L, Anion Gap 10, Blood Urea Nitrogen 49H, Creatinine 2.23H, Estimat Glomerular Filtration Rate 30, BUN/Creatinine Ratio 22, Glucose Level 125H, Calcium Level 10.4H, Corrected Calcium 11.2H, Total Bilirubin 0.3, Aspartate Amino Transf (AST/SGOT) 12, Alanine Aminotransferase (ALT/SGPT) 9, Alkaline Phosphatase 117, Total Protein 7.5, Albumin 3.0L Pending Labs Laboratory Tests 09/09/21 16:16: Glucometer 116 09/09/21 20:31: Glucometer 141 09/10/21 05:21: Glucometer 124 09/10/21 05:45: White Blood Count 8.6, Red Blood Count 2.79, Hemoglobin 8.3, Hematocrit 27, Mean Corpuscular Volume 96, Mean Corpuscular Hemoglobin 30, Mean Corpuscular Hemoglobin Concent 31, Red Cell Distribution Width 16.0, Platelet Count 400, Mean Platelet Volume 11.9, Immature Granulocyte % (Auto) 2, Neutrophils (%) (Auto) 62, Lymphocytes (%) (Auto) 23, Monocytes (%) (Auto) 11, Eosinophils (%) (Auto) 3, Basophils (%) (Auto) 1, Neutrophils # (Auto) 5.3, Lymphocytes # (Auto) 2.0, Monocytes # (Auto) 0.9, Eosinophils # (Auto) 0.2, Basophils # (Auto) 0.0, Immature Granulocyte # (Auto) 0.1, Sodium Level 139, Potassium Level 5.0, Chloride Level 108, Carbon Dioxide Level 23, Anion Gap 8, Blood Urea Nitrogen 23, Creatinine 1.69, Estimat Glomerular Filtration Rate 42, BUN/Creatinine Ratio 14, Glucose Level 136, Calcium Level 9.5, Corrected Calcium 10.7, Total Bilirubin 0.3, Aspartate Amino Transf (AST/SGOT) 16, Alanine Aminotransferase (ALT/SGPT) < 6, Alkaline Phosphatase 90, Total Protein 7.0, Albumin 2.5 09/10/21 10:54: Glucometer 106 09/10/21 15:41: Glucometer 119 09/10/21 20:31: Glucometer 154 09/11/21 05:13: Glucometer 116 09/11/21 10:53: Glucometer 125 09/11/21 15:20: Glucometer 120 09/14/21 05:40: White Blood Count 9.4, Red Blood Count 2.91, Hemoglobin 8.6, Hematocrit 29, Mean Corpuscular Volume 99, Mean Corpuscular Hemoglobin 30, Mean Corpuscular Hemoglobin Concent 30, Red Cell Distribution Width 17.0, Platelet Count 343, Mean Platelet Volume 12.2, Immature Granulocyte % (Auto) 1, Neutrophils (%) (Auto) 60, Lymphocytes (%) (Auto) 23, Monocytes (%) (Auto) 10, Eosinophils (%) (Auto) 5, Basophils (%) (Auto) 1, Neutrophils # (Auto) 5.6, Lymphocytes # (Auto) 2.1, Monocytes # (Auto) 1.0, Eosinophils # (Auto) 0.5, Basophils # (Auto) 0.1, Immature Granulocyte # (Auto) 0.1, Sodium Level 139, Potassium Level 5.6, Chloride Level 109, Carbon Dioxide Level 23, Anion Gap 7, Blood Urea Nitrogen 33, Creatinine 2.04, Estimat Glomerular Filtration Rate 33, BUN/Creatinine Ratio 16, Glucose Level 148, Calcium Level 9.6, Corrected Calcium 10.6, Total Bilirubin 0.3, Aspartate Amino Transf (AST/SGOT) 18, Alanine Aminotransferase (ALT/SGPT) 7, Alkaline Phosphatase 114, Total Protein 7.2, Albumin 2.7 09/21/21 07:22: White Blood Count 9.8, Red Blood Count 3.02, Hemoglobin 9.1, Hematocrit 29, Mean Corpuscular Volume 97, Mean Corpuscular Hemoglobin 30, Mean Corpuscular Hemoglobin Concent 31, Red Cell Distribution Width 16.2, Platelet Count 325, Mean Platelet Volume 12.4, Immature Granulocyte % (Auto) 1, Neutrophils (%) (Auto) 62, Lymphocytes (%) (Auto) 25, Monocytes (%) (Auto) 10, Eosinophils (%) (Auto) 2, Basophils (%) (Auto) 1, Neutrophils # (Auto) 6.1, Lymphocytes # (Auto) 2.4, Monocytes # (Auto) 1.0, Eosinophils # (Auto) 0.2, Basophils # (Auto) 0.1, Immature Granulocyte # (Auto) 0.1, Sodium Level 139, Potassium Level 5.2, Chloride Level 112, Carbon Dioxide Level 17, Anion Gap 10, Blood Urea Nitrogen 49, Creatinine 2.23, Estimat Glomerular Filtration Rate 30, BUN/Creatinine Ratio 22, Glucose Level 125, Calcium Level 10.4, Corrected Calcium 11.2, Total Bilirubin 0.3, Aspartate Amino Transf (AST/SGOT) 12, Alanine Aminotransferase (ALT/SGPT) 9, Alkaline Phosphatase 117, Total Protein 7.5, Albumin 3.0 Discharge Home Medications: Active Scripts Active Furosemide 40 Mg Tablet 40 Mg PO DAILY PRN Atorvastatin Calcium 10 Mg Tablet 10 Mg PO DAILY Clopidogrel (Clopidogrel Bisulfate) 75 Mg Tablet 75 Mg PO DAILY Amlodipine Besylate 5 Mg Tablet 5 Mg PO DAILY Hydrocodone-Acetamin 7.5-325 (Hydrocodone/Acetaminophen) 1 Each Tablet 1 Each PO Q6H PRN Reported Ciprofloxacin HCl 750 Mg Tablet 750 Mg PO DAILY FILLED 08-19-2021 #30/30 DAY SUPPLY Culturelle (Lactobacillus Rhamnosus GG) 1 Each Capsule 1 Each PO DAILY Pantoprazole Sodium 40 Mg Tablet.dr 40 Mg PO DAILY Folic Acid 1 Mg Tablet 1 Mg PO DAILY Sucralfate 1 Gm Tablet 1 Gm PO DAILY Ferrous Sulfate 325 Mg Tablet 325 Mg PO DAILY Aspirin EC (Aspirin) 81 Mg Tablet.dr 81 Mg PO DAILY Instructions to patient/family Please see electronic discharge instructions given to patient. Diagnosis/Problems Diagnosis/Problems (1) S/P AKA (above knee amputation) (2) Diabetes (3) History of left below knee amputation (4) Psychosis (5) CKD (chronic kidney disease) AFTAB BENZ DO Sep 21, 2021 05:36
[2021-09-21 07:30] LABS: BASOPHILS # (AUTO) 0.1 10^3/uL (0.0-0.1); BASOPHILS % (AUTO) 1 % (0-10); EOSINOPHILS # (AUTO) 0.2 10^3/uL (0.0-0.3); EOSINOPHILS % (AUTO) 2 % (0-10); HEMATOCRIT 29 % (40-54); HEMOGLOBIN 9.1 g/dL (13.3-17.7); LYMPHOCYTES # (AUTO) 2.4 10^3/uL (1.0-4.0); LYMPHOCYTES % (AUTO) 25 % (12-44); MEAN CORPUSCULAR HEMOGLOBIN 30 pg (25-34); MEAN CORPUSCULAR HGB CONC 31 g/dL (32-36); MEAN CORPUSCULAR VOLUME 97 fL (80-99); MEAN PLATELET VOLUME 12.4 fL (9.0-12.2); MONOCYTES % (AUTO) 10 % (0-12); NEUTROPHILS # (AUTO) 6.1 10^3/uL (1.8-7.8); NEUTROPHILS % (AUTO) 62 % (42-75); PLATELET COUNT 325 10^3/uL (130-400); WHITE BLOOD COUNT 9.8 10^3/uL (4.3-11.0)
[2021-09-21 07:43] VITALS: BP 143/69
[2021-09-21 07:49] LABS: BILIRUBIN,TOTAL 0.3 MG/DL (0.1-1.0); CALCIUM 10.4 MG/DL (8.5-10.1); CREATININE SERUM 2.23 MG/DL (0.60-1.30); POTASSIUM 5.2 MMOL/L (3.6-5.0); TOTAL PROTEIN 7.5 GM/DL (6.4-8.2)
--- NOTE | 2021-09-21 08:07 | Occupational Ther Daily Note ---
OT Current Status-Daily Note Subjective Pt alert, lying in bed. Pt states that he is discharging today, physician orders confirm. Pt agrees to therapy. No c/o pain. Mental Status/Objective Patient Orientation: Person, Place, Time, Situation ADL-Treatment Pt agrees to sponge bath. Pt requested to use bariatric commode. Assist to position SB and w/c for all transfers. Min A from bed to w/c. Mod A from w/c to BSC. While pt leaning side to side, assist given to hike pants down over hips. Assist given to cleanse pt after BM. Co-treat with PT [id number], skills of 2 clinicians required to decrease fall risk, increase over all strength, decrease activity tolerance and increase all mobility. PT focusing on transfers, w/c mobility while OT focusing on ADLs and functional transfers. After therapy, pt sitting in w/c with call light/phone in reach. All needs met in room. Therapy Code Descriptions/Definitions Functional [place] Measure: 0=Not Assessed/NA 4=Minimal Assistance 1=Total Assistance 5=Supervision or Setup 2=Maximal Assistance 6=Modified [place] 3=Moderate Assistance 7=Complete IndependenceSCALE: Activities may be completed with or without assistive devices. 3-Znwbyuyxme-knawgbj completes the activity by him/herself with no assistance from a helper. 5-Set-up or Clean-up Assistance-helper sets up or cleans up; patient completes activity. [place] assists only prior to or following the activity. 4-Supervision or Touching Assistance-helper provides verbal cues and/or touching/steadying and/or contact guard assistance as patient completes activity. Assistance may be provided throughout the activity or intermittently. 3-Partial/Moderate Assistance-helper does LESS THAN HALF the effort. [place] lifts, holds or supports trunk or limbs, but provides less than half the effort. 2-Substantial/Maximal Assistance-helper does MORE THAN HALF the effort. [place] lifts or holds trunk or limbs and provides more than half the effort. 8-Sywhyibcb-lkxllm does ALL the effort. Patient does none of the effort to complete the activity. Or, the assistance of 2 or more helpers is required for the patient to complete the activity. If activity was not attempted, code reason: 7-Patient Refused. 9-Not Applicable-not attempted and the patient did not perform the activity before the current illness, exacerbation or injury. 10-Not Attempted due to Environmental Limitations-(lack of equipment, weather restraints, etc.). 88-Not Attempted due to Medical Conditions or Safety Concerns. Eating (QC): 6 (Independent sitting EOB.) Oral Hygiene (QC): 6 (Independent sitting at sink.) Bathing Location: L Arm, R Arm, L Upper Leg, Chest, Abdomen, Perineal Area Shower/Bathe Self (QC): 3 (Sitting on bariatric commode to complete sponge bath. Assist to cleanse buttocks and pt cleansed all other areas.) Upper Body Dressing (QC): 5 (Set up only.) Lower Body Dressing (QC): 2 (Pt able to thread L stump and assist with R stump due to catching on haile then assist to hike over hips while pt completed arm chair pushup 2x's.) On/Off Footwear: 9 Toileting Hygiene (QC): 2 Toilet Transfer (QC): 1 OT Short Term Goals Short Term Goals Time Frame: Sep 23, 2021 Toileting hygiene: 3 Shower/bathe self: 3 Lower body dressin Putting on/taking off footwear: 3 OT Halfway Goals Halfway Goals Time Frame: Oct 09, 2021 Eating (QC): 6 Oral Hygiene (QC): 6 Toileting Hygiene (QC): 4 Shower/Bathe Self (QC): 4 Upper Body Dressing (QC): 6 Lower Body Dressing (QC): 4 On/Off Footwear (QC): 5 (LLE prosthesis only) Additional Goals: 1-Demonstrate ADL Tasks, 2-Verbalize Understanding, 3- ImproveStrength/Julisa 1=Demonstrate adherence to instructed precautions during ADL tasks. 2=Patient will verbalize/demonstrate understanding of assistive devices/modifications for ADL. 3=Patient will improve strength/tolerance for activity to enable patient to perform ADL's. OT Education/Plan Problem List/Assessment Assessment: Decreased Activ Tolerance, Decreased UE Strength, Impaired Self- Care Skills Discharge Recommendations Plan/Recommendations: Discharge/Goals Met (Pt to discharge to home 09/21/2021) Therapy Discharge Recommendati: Home & Family, Post Acute OT Equpiment Recommendations-D/C: Extended Bath Bench, Bedside Commode (bariatric) Treatment Plan/Plan of Care Patient would benefit from OT for education, treatment and training to promote independence in ADL's, mobility, safety and/or upper extremity function for ADL's. Plan of Care: ADL Retraining, Functional Mobility, Group Exercise/Act as Ind, UE Funct Exercise/Act Treatment Duration: Oct 09, 2021 Frequency: At least 5 of 7 days/Wk (IRF) Estimated Hrs Per Day: 1.5 hours per day Rehab Potential: Fair Time/GCodes Start Time: 07:30 Stop Time: 08:30 Total Time Billed (hr/min): 60 Billed Treatment Time 1 visit-ADL 4 (60 min) co-treat with PT [id number], individual [id number] RAMIN FAULKNER Sep 21, 2021 08:07
--- NOTE | 2021-09-21 08:25 | Physical Therapy Daily Note ---
PT Daily Note-Current Subjective Patient in restroom pre tx, showering with OT, has no complaints of pain, will be co-treating with OT due to poor patient mobility, strength, endurance, complicated transfers, coordinate UE and LE with activity, safety and reduce risk of falls. Appearance Patient in WC post tx, will finish up for a bit with OT Mental Status Patient Orientation: Person, Place, Situation Transfers SCALE: Activities may be completed with or without assistive devices. 6-Wwgbwcvkqb-khtpame completes the activity by him/herself with no assistance from a helper. 5-Set-up or Clean-up Assistance-helper sets up or cleans up; patient completes activity. [place] assists only prior to or following the activity. 4-Supervision or Touching Assistance-helper provides verbal cues and/or touching/steadying and/or contact guard assistance as patient completes activity. Assistance may be provided throughout the activity or intermittently. 3-Partial/Moderate Assistance-helper does LESS THAN HALF the effort. [place] lifts, holds or supports trunk or limbs, but provides less than half the effort. 2-Substantial/Maximal Assistance-helper does MORE THAN HALF the effort. [place] lifts or holds trunk or limbs and provides more than half the effort. 7-Waiwmtodd-htabpz does ALL the effort. Patient does none of the effort to complete the activity. Or, the assistance of 2 or more helpers is required for the patient to complete the activity. If activity was not attempted, code reason: 7-Patient Refused. 9-Not Applicable-not attempted and the patient did not perform the activity before the current illness, exacerbation or injury. 10-Not Attempted due to Environmental Limitations-(lack of equipment, weather restraints, etc.). 88-Not Attempted due to Medical Conditions or Safety Concerns. Roll Left & Right (QC): 6 Sit to Lying (QC): 6 Lying to Sitting/Side of Bed(Q: 6 Sit to Stand (QC): 3 Chair/Pcm-aj-Xpslb Xfer(QC): 3 Toilet Transfer (QC): 3 Car Transfer (QC): 3 Patient performs rolling and supine <-> sit with independence, sit <-> stand with mod assist (in parallel bars with mod assist), transfers with sliding board with mod assist, car transfer mod assist (sliding board). Patient needs cues for hand placement and positioning. Gait Training Walk 10 feet (QC): 88 Walk 50 ft with 2 Turns(QC): 88 Walk 150 ft (QC): 88 Walking 10ft/uneven surface-QC: 88 Wheelchair Training Wheel 50 ft with 2 turns (QC): 6 Wheel 150 ft (QC): 6 Stair Training 1 Step (curb) (QC): 88 4 Steps (QC): 88 12 Steps (QC): 88 Balance Picking up an Object (QC): 88 Treatments PT performed bed mobility and transfers, WC mobility, OT performed bathing and dressing, UE positioning and safety during activity. Assessment Current Status: Fair Progress improving sliding board transfers PT Short Term Goals Short Term Goals Time Frame: Sep 16, 2021 Roll Left & Right: 6 Sit to lyin Lying to sitting on side of be: 4 Sit to stand: 3 Chair/sup-we-ywmya transfer: 4 PT Regional Property Manager Goals Skilled Nursing Goals PT Regional Property Manager Goals Time Frame: Sep 30, 2021 Roll Left & Right (QC): 6 Sit to Lying (QC): 6 Lying-Sitting on Side/Bed(QC): 6 Sit to Stand (QC): 4 Chair/Osk-su-Pqnro Xfer(QC): 4 Toilet Transfer (QC): 4 Car Transfer (QC): 3 Does the Patient Walk: No and Walking Goal NOT indicated Walk 10 feet (QC): 88 Walk 50ft with 2 Turns (QC): 88 Walk 150 ft (QC): 88 Walking 10ft on Uneven Surface: 88 1 Step (curb) (QC): 88 4 Steps (QC): 88 12 Steps (QC): 88 Picking up an Object (QC): 6 Wheel 50 feet with 2 turns (QC: 6 Wheel 150 feet: 6 PT Plan Problem List Problem List: Activity Tolerance, Functional Strength, Safety, Balance, Gait, Transfer, Bed Mobility, ROM Treatment/Plan Treatment Plan: Continue Plan of Care Treatment Plan: Bed Mobility, Education, Functional Activity [place], Functional Strength, Group Therapy, Gait, Safety, Therapeutic Exercise, Transfers Treatment Duration: Sep 30, 2021 Frequency: At least 5 of 7 days/Wk (IRF) Estimated Hrs Per Day: 1.5 hours per day Patient and/or Family Agrees t: Yes Safety Risks/Education Patient Education: Transfer Techniques, Correct Positioning, W/C Management, Safety Issues Teaching Recipient: Patient Teaching Methods: Demonstration, Discussion Response to Teaching: Reinforcement Needed Time/GCodes Time In: 0800 Time Out: 829 Total Billed Treatment Time: 30 Total Billed Treatment 1 visit FA 30' NEFTALY MITCHELL PT Sep 21, 2021 08:25
[2021-09-21] MEDS: CLOPIDOGREL 75 MG (PLAVIX) TABLET PO SCH (08:34)
[2021-09-21] MEDS: ASPIRIN E.C. 81 MG (ECOTRIN) TAB PO SCH (08:34)
[2021-09-21] MEDS: FERROUS SULF 325 MG (IRON) TAB PO SCH (08:34)
[2021-09-21] MEDS: amLODIPine 10 MG (NORVASC) TAB PO SCH (08:34)
[2021-09-21] MEDS: AtorvaSTATin TABLET 10 MG TABLET PO SCH (08:34)
[2021-09-21] MEDS: polyethylene glycoL POWDER 17 GM (MIRALAX) PACK PO SCH (09:27)
[2021-09-21] MEDS: SENNA W/DOCUSATE (SENOKOT S) TABLET PO SCH (09:27)
[2021-09-21] MEDS: DOCUSATE SODIUM 100 MG (COLACE) CAP PO SCH (09:27)
[2021-09-21] MEDS: HYDROcodone/APAP 7.5 MG/325 MG (LORTAB, LORCET PLUS) TABLET PO PRN (10:27)
--- NOTE | 2021-09-21 10:43 | Therapy Team Discharge Summary ---
Therapy Discharge Summary Discharge Recommendations Date of Discharge Physical Therapy Patient came to rehab following a right AKA. Upon evaluation patient performed rolling with independence, supine <-> sit min assist, transfers with mod assist using a sliding board, and could propel a manual WC 150' with SBA. Patient has been performing bed mobility and transfer training, WC training, functional strengthening, balance training, and education. Patient has made some progress but has not met his long goods drier goals for transfers. Now, patient performs rolling and supine <-> sit with independence, sit <-> stand with mod assist (in parallel bars with mod assist), transfers with sliding board with mod assist, car transfer mod assist (sliding board), and propels a manual WC 150' with independence. Patient is being discharged from this facility today and will be discharged from PT at this time. Occupational Therapy Decreased Activ Tolerance, Decreased UE Strength, Impaired Self-Care Skills PT Fdc Goals Fdc Goals PT Sales Representative Jewelry Goals Time Frame: Sep 30, 2021 Roll Left to Right (QC): 6 Sit to Lying (QC): 6 Lying-Sitting on Side/Bed(QC): 6 Sit to Stand (QC): 4 Chair/Qrn-sh-Zozuc Xfer(QC): 4 Car Transfer (QC): 3 Does the Patient Walk: No and Walking Goal NOT indicated Walk 10 feet (QC): 88 Walk 10ft-Uneven Surface(QC): 88 Walk 50ft with 2 Turns (QC): 88 Walk 150 ft (QC): 88 Wheel 50 feet with 2 turns (QC: 6 1 Step (curb) (QC): 88 4 Steps (QC): 88 12 Steps (QC): 88 Picking up an Object (QC): 6 OT Sales Representative Jewelry Goals Sales Representative Jewelry Goals Time Frame: Oct 09, 2021 Eating (QC): 6 Oral Hygiene (QC): 6 Shower/Bathe Self (QC): 4 Upper Body Dressing (QC): 6 Lower Body Dressing (QC): 4 On/Off Footwear (QC): 5 (LLE prosthesis only) Toileting Hygiene (QC): 4 Toilet/Commode Transfer (QC): 4 Additional Goals: 1-Demonstrate ADL Tasks, 2-Verbalize Understanding, 3- ImproveStrength/Julisa 1=Demonstrate adherence to instructed precautions during ADL tasks. 2=Patient will verbalize/demonstrate understanding of assistive devices/modifications for ADL. 3=Patient will improve strength/tolerance for activity to enable patient to perform ADL's. NEFTALY MITCHELL PT Sep 21, 2021 10:42
[2021-09-21 13:00] VITALS: BP 143/69
--- NOTE | 2021-09-22 10:07 | Therapy Team Discharge Summary ---
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 At PLOF pt was independent with ADLs and functi onal transfers, using electric w/c. Upon initial evaluation, pt was independent with eating and oral care, required SBA showering, set up upper body dressing, mod A lower body dressing, and footwear was not attempted due to medical condition. OT tx focused on increasing BUE strength and activity tolerance and increasing independence with ADLs and functional mobility/transfers. At d ischarge, pt was independent with eating and oral care, required min A showering, set up upper body dressing, max A lower body dressing, and max A toileting, footwear not attempted due to medical condition. Pt made functional progress, but only met LTGs for eating and oral care. Pt would benefit from an extended bath bench and a bariatric drop arm BSC. Pt discharged from facility, d/c from OT. Decreased Activ Tolerance, Decreased UE Strength, Impaired Self-Care Skills PT Beadworker Goals Beadworker Goals PT Beadworker Goals Time Frame: Sep 30, 2021 Roll Left to Right (QC): 6 Sit to Lying (QC): 6 Lying-Sitting on Side/Bed(QC): 6 Sit to Stand (QC): [address] Chair/Way-fq-Nkgru Xfer(QC): 4 Car Transfer (QC): 3 Does the Patient Walk: No and Walking Goal NOT indicated Walk 10 feet (QC): 88 Walk 10ft-Uneven Surface(QC): 88 Walk 50ft with 2 Turns (QC): 88 Walk 150 ft (QC): 88 Wheel 50 feet with 2 turns (QC: 6 1 Step (curb) (QC): 88 4 Steps (QC): 88 12 Steps (QC): 88 Picking up an Object (QC): 6 OT Long-Term Goals Beadworker Goals Time Frame: Oct 09, 2021 Eating (QC): 6 (met) Oral Hygiene (QC): 6 (met) Shower/Bathe Self (QC): 4 (not met) Upper Body Dressing (QC): 6 (not met) Lower Body Dressing (QC): 4 (not met) On/Off Footwear (QC): 5 (LLE prosthesis only, not met) Toileting Hygiene (QC): 4 (not met) Toilet/Commode Transfer (QC): 4 (not met) Additional Goals: 1-Demonstrate ADL Tasks, 2-Verbalize Understanding, 3- ImproveStrength/Julisa 1=Demonstrate adherence to instructed precautions during ADL tasks. 2=Patient will verbalize/demonstrate understanding of assistive devices/modifications for ADL. 3=Patient will improve strength/tolerance for activity to enable patient to perform ADL's. LETICIA HENDRIX OT Sep 22, 2021 10:07
== END 2021-09-21 13:15 | disposition home health service (06) | DRG 561 ==
LOC: EDBD
PROVIDERS: ADMIT Internal Medicine; ATTEND Internal Medicine
DX: Z47.81 Encounter for orthopedic aftercare following surgical amputation (principal); Z89.611 Acquired absence of right leg above knee; Z89.512 Acquired absence of left leg below knee; E11.40 Type 2 diabetes mellitus with diabetic neuropathy, unspecified; I12.9 Hypertensive chronic kidney disease with stage 1 through stage 4 chronic kidney disease, or unspecified chronic kidney disease; E11.22 Type 2 diabetes mellitus with diabetic chronic kidney disease; N18.9 Chronic kidney disease, unspecified; F43.21 Adjustment disorder with depressed mood; E78.5 Hyperlipidemia, unspecified; D64.9 Anemia, unspecified; E66.9 Obesity, unspecified; Z68.36 Body mass index [BMI] 36.0-36.9, adult; F17.210 Nicotine dependence, cigarettes, uncomplicated; K21.9 Gastro-esophageal reflux disease without esophagitis; F41.9 Anxiety disorder, unspecified; Z79.82 Long term (current) use of aspirin; Z83.3 Family history of diabetes mellitus; Z82.49 Family history of ischemic heart disease and other diseases of the circulatory system; Z88.8 Allergy status to other drugs, medicaments and biological substances
CPT/HCPCS: 36415; 80053; 82947; 85025